=== PATIENT | male | born 1970 | race Caucasian/White ===

== ENCOUNTER → 2016-07-30 | Day surgery (SDC) | payer MEDICAID ==
[~2016-07-30] VITALS: Ht 177.8 cm; Wt 112.9 kg
[~2016-07-30] MED LIST: AEROCHAMBER1 DEV IH; ALBUTEROL2 PUFFS/17 IN; ALDACTONE 25MG25 MG PO; AMLO5TAB PO; AMOXICILLIN/CLA1 TA1 PO; AMOXIL500 MG PO; ANAPROX DS550 MG PO; ATIVAN1 MG PO; ATORVASTATIN CA40 MG PO; AZITHROMYCIN250 MG PO; BACTRIM DS 8001 TA1 PO; BACTROBAN2% TP; BENZONATATE100 M1 PO; CARVEDILOL6.25 MG PO; CEFDINIR 300MG300 MG PO; CELEXA20 MG PO; CLARITIN 10MG T10 MG PO; COMBIVENT RESPI1 SPR IH; ERYTHROCIN STE500 MG PO; FAMOTIDINE 20MG20 MG PO; FAMOTIDINE20 MG OR; FAMOTIDINE40 MG PO; FLEXERIL10 M1 PO; FLEXERIL10 MG; FLEXERIL10 MG PO; FLOMAX 0.4MG C0.4 MG PO; GABAPENTIN 400400 MG PO; GABAPENTIN300 M1 PO; HYDROCODONE1 TABLET PO; IBU-8800 MG PO; IBU800 M1 PO; IBUPROFEN400 MG PO; ISOSORBIDE MONO60 M1 PO; KEFLEX 500MG.500 MG PO; KEFLEX500 M1 PO; LIPITOR40 M1 PO; LISINOPRIL 5MG T5 MG PO; LISINOPRIL40 MG PO; LORTAB 5 PO; LORTAB 5/500 501 TAB PO; LORTAB 500 MG-71 TAB PO; MEDROL 4MG. DOSE4 MG PO; MEDROL DOSEPAK4 MG PO; MORPHINE SULFAT15 M3 PO; MOTRIN600 M1 PO; MUCINEX1200 MG PO; MYLICON 80MG. C80 MG PO; NAPROSYN 500MG500 MG PO; NITROGLYCERIN0.4 MG SL; NORCO 325 MG-101 TAB PO; NORFLEX100 MG PO; PERCOCET 325 MG1 TA3 PO; PHENERGAN 25MG.25 M1 PO; PREDNISONE 10MG10 MG PO; PREDNISONE 20MG20 MG PO; PREDNISONE 5MG.5 MG PO; PRILOSEC20 M1 PO; PROTONIX 40MG T40 MG PO; ROBAXIN-750750 MG PO; ROBITUSSIN DM 105 ML PO; SALMETEROL-F28 PUFFS IN; SEPTRA DS 800 M1 TAB PO; SINGULAIR10 MG PO; STERAPRED DS10 MG PO; SUDAFED PE COLD1 TAB PO; TESSALON PERLE100 MG PO; TESSALON PERLE200 MG PO; TIZANIDINE4 MG PO; TRAMADOL 50MG T50 MG PO; ULTRAM50 MG PO; VICODIN 5/500 T1 TAB PO; XANAX 1MG TABLET1 MG PO; ZIAC 10 MG-6.251 TAB PO; ZIAC 5 MG-6.251 TAB PO; ZITHROMAX Z PA250 MG PO; ZITHROMAX Z-PA250 M1 PO; ZITHROMAX Z-PA250 M2 PO
[2016-07-30 11:11] LABS: HEMOGLOBIN 14.6 g/dL (14.1-18.0); LYMPH # 1.4 K/mm3 (0.7-4.5); LYMPH % 19.6 % (10-50)
--- NOTE | 2016-07-30 11:22 | Emergency Room Report ---
History of Present Illness Time Seen by [id number] Presenting Problem in Triage Pt arrived:Walked Presenting Problem:CHEST PAIN 2-[address] REECE OFFICE AND IT GOT WORSE SO HE CAME TO ED. WAS SEEN LAST NIGHT FOR SAME THING. STATES THEY GAVE HIM DILAUDID LAST NIGHT. Onset of symptoms date/time:07/27/16 or onset unknown for: Treatment Prior to Arrival: RADIOLOGY RN Provided by: Sepsis Risk Assessment: Temp: 98.2 B/P: 154/76 MAP: 102 Pulse: 69 Resp: 20 Recent fever? N Clinical Suspician of Infection? N Mental Status: 1 - Regular (Normal Baseline) Sepsis Risk:Low Sepsis Risk Have you (or family members/close friends) recently traveled outside the [place]? N If Yes, where/when: Have you had exposure to infectious disease within the past month? TB? Other? Specify: Patient sent over from Dr. Aleman's office for EKG and cardiac enzymes prior to going to chemical processing laborer today. Patient seen in ED last night for three day hx of chest pain. Labs and EKG normal. Pain not relieved by nitrates, but relieved by narcotics. He states he awakened this morning with sharp, SSCP radiating to his jaw, and vomited several times, nonbloody emesis. The vomiting has abated. He took NTG with moderate relief this morning. Patient presented to Dr. Aleman's office for follow up visit this morning and EKG in Dr. Aleman's office was normal. Source patient (Irwin NOLEN with Dr. Aleman), RN notes reviewed, old records ALLERGIES Coded Allergies: tramadol (01/04/16) Home Medications Active Scripts Montelukast Sodium (Singulair) 10 MG PO QHS #30 TAB Prov: 01/04/16 Carvedilol (Carvedilol 6.25MG) 6.25 MG PO BID 30 Days Prov: 01/30/15 NITROGLYCERIN (Nitrostat) 0.4 MG SL [id number] PRN CHEST PAIN #30 TAB Ref 1 Prov: 01/30/15 ALBUTEROL/IPRATROPIUM (Combivent Respimat Inhal [place]) 1 PUFF IH Q6HP PRN ASTHMA #1 INH Ref 1 Prov: 01/30/15 Reported Medications GABAPENTIN (Gabapentin) 800 MG PO TID Isosorbide Mononitrate (Isosorbide Mononitrate ER) 30 MG PO BID #30 Atorvastatin Calcium 40 MG PO QHS #30 Spironolactone (Aldactone) 25 MG PO DAILY #30 Lisinopril (Lisinopril 40MG) 20 MG PO BID #30 History Medical History General CAD? No Angina: Yes [place]: No Hypertension? Yes Hyperlipidemia? Yes CHF? No DVT? No PE? No COPD? No Asthma? Yes Anemia? No GERD? No Gastric ulcers? No GI Bleed? No Hernia? No Thyroid Problems? No Hypothyroidism? No CVA? No Seizures? No Diabetes? No End Stage Renal Disease? No UTI? No Stones? No BPH? No GB Disease: No Nephritic Syndrome? No Asplenia? No Hepatitis? No Sickle Cell Disease? No Arthritis? Yes Migraines? No Cataracts? No Glaucoma? No MRSA? Yes HIV? No TB? No Anxiety? No Depression? No Cancer? No More? Yes Additional hx: CARDIOMYOPATHY Immunization Hx DT/Tetanus 2011 Flu Refused Pneumonia Refuses Surgical Hx Previous Surgery?Y BOTH WRIST-PIN RT LEG-SCREW/PLATE EAR TUBES BILATERALLY ADENOIDECTOMY BACK X2 LEFT KNEE R KNEE R//MRSA LEFT CARPAL TUNNEL Family History Family Hx Diabetes No CAD Yes Hypertension Yes Hyperlipidemia Yes Cancer Yes TB No Social History Smoking Hx Smoker: Never Smoker Tobacco: No Alcohol Alcohol: No Review of Systems All Other Systems Reviewed and Negative Musculoskeletal other (chronic pain; daily narcotics) Physical Exam Vital Signs Vital Signs Date Time Temp Pulse Resp B/P Pulse O2 O2 Flow FiO2 Ox Delivery Rate 07/30 1100 20 98 07/30 1050 98.2 69 20 154/76 98 General Appearance normal appearance, WD/WN, no apparent distress (Patient talking on cell phone) Eye Exam - bilateral eye normal exam, bilateral eye PERRL, bilateral eye EOMI Neck full range of motion Respiratory Status Yes: trachea midline, chest symmetrical, non tender chest. No: respiratory distress, tender on palpation, use of accessory muscles, pain on inspiration, pain on expiration, productive cough, non productive cough. Lung Sounds bilateral: normal breath sounds, lungs clear. Cardiovascular normal exam, regular rate/rhythm, no peripheral edema, no gallop, no JVD, no murmur, no rub, normal peripheral pulses Gastrointestinal normal bowel sounds, normal exam, soft, no organomegaly, no pulsatile mass, no guarding, no rebound Extremities non-tender, normal range of motion, normal inspection, normal capillary refill Neurologic alert, normal exam (speech clear and fluent) Skin intact Medical Decision Making LABS/Meds/Orders Pt receiving controlled substance in ED? No Results/Orders Laboratory Tests 07/30/16 1100: Sodium 135 L, Potassium 3.5, Chloride 99, Carbon Dioxide 30, BUN 9, Creatinine 1.1, Estimated Creat Clear 137, Estimated GFR (MDRD) 73, Glucose 106, Calcium 9.0, Total Bilirubin 0.6, AST 17, ALT 43, Alkaline Phosphatase 55, Creatine Kinase 99, CK-MB (CK-2) Rel Index 1.1, CK and CKMB Interp 1.1, Troponin I 0.02, Total Protein 7.9, Albumin 3.8, Globulin 4.1 H, Albumin/Globulin Ratio 0.9 L, WBC 7.1, RBC 4.54 L, Hgb 14.6, Hct 41.5 L, MCV 91.3, RDW 12.7, Plt Count 208, MPV 6.6 L, Gran % 74.8, Gran # 5.3, Lymphocytes % 19.6, Monocytes % 4.0, Eosinophils % 1.0, Basophils % 0.5, Lymphocytes # 1.4, Monocytes # 0.3, Eosinophils # 0.1, Basophils # 0.0, PUBS MCHC 35.3, MCH 32.3 H Current Medication Orders Sig/Jory Start time Last Medication Dose Route Stop Time Status Admin Hydromorphone HCl 1 MG ONCE ONE 07/30 1130 DCr IV 07/30 1131 Ondansetron HCl 4 MG ONCE ONE 07/30 1130 DC IV 07/30 1131 Aspirin 243 MG ONCE ONE 07/30 1115 DC 07/30 PO 07/30 1116 1111 Nitroglycerin 1 IN ONCE ONE 07/30 1115 DC 07/30 EX 07/30 1116 1111 Aspirin 0 .STK-MED ONE 07/30 1102 DC .ROUTE Nitroglycerin 0 .STK-MED ONE 07/30 1101 DC .ROUTE Sodium Chloride 10 ML PRN PRN 07/30 1100 AC IV 07/31 1051 Orders Procedure Date/time Status ELECTROCARDIOGRAM REQUEST 07/30 1051 Active IV SALINE LOCK 07/30 1051 Active INFLUENZA A&B ANTIGENS 07/30 1051 Active CBC WITH AUTO DIFF 07/30 1051 Complete CARDIAC ENZYMES 07/30 1051 Complete CHEM 12 PROFILE 07/30 1051 Complete CHEST(2 VIEWS-NOT PORTABLE) 07/30 1050 Active 12 LEAD EKG-DEMARCUS (INITIAL) 07/30 UNK Active CM/EKG CM/EKG EKG rate, NSR, rhythm, no evid. of ischemic chgs, no ectopy, normal QRS, normal KS, normal EKG (NSR, no acute changes) XRAY/CT/US XRAY/CT/US XRAY chest XR interpretation by reviewed by me Xray Results normal/NAD, no infiltrates, normal heart size, normal lung inflation dolores (no change from 07/29/16) Consult MD Physician Consult Time Called 1141 Reason Pt. Condition, Cardiology eval/care (Irwin Post updated on results) Progress ED Progress Notes Date 07/30/16 Time 1138 Comment Aspirin PO; NTP to chest wall; lab called for update on troponin result, which is still pending. Departure Departure Time of Disposition 1141 Disposition DC Home or Self Care(routine) Clinical Impression Primary Impression: Angina at rest Condition STABLE Referrals Darryn Aleman MD Additional Instructions Go directly to the chemical processing laborer. They are expecting you. The staff here has prepped you to go directly there from the ER. Although we are discharging you from the ER, you are to go immediately to the chemical processing laborer now. Discharge Counseling Counseled pt/family regarding diagnosis, test results, follow up needs ( immediately to chemical processing laborer) ED Critical Care Critical Care No at [id number]
--- NOTE | 2016-07-30 11:22 | Emergency Room Report ---
History of Present Illness Time Seen by [id number] Presenting Problem in Triage Pt arrived:Walked Presenting Problem:CHEST PAIN 2-[address] REECE OFFICE AND IT GOT WORSE SO HE CAME TO ED. WAS SEEN LAST NIGHT FOR SAME THING. STATES THEY GAVE HIM DILAUDID LAST NIGHT. 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 N Clinical Suspician of Infection? N Mental Status: 1 - Regular (Normal Baseline) Sepsis Risk:Low Sepsis Risk Have you (or family members/close friends) recently traveled outside the [place]? N If Yes, where/when: Have you had exposure to infectious disease within the past month? TB? Other? Specify: Patient sent over from Dr. Aleman's office for EKG and cardiac enzymes prior to going to clinical lab specialist today. Patient seen in ED last night for three day hx of chest pain. Labs and EKG normal. Pain not relieved by nitrates, but relieved by narcotics. He states he awakened this morning with sharp, SSCP radiating to his jaw, and vomited several times, nonbloody emesis. The vomiting has abated. He took NTG with moderate relief this morning. Patient presented to Dr. Aleman's office for follow up visit this morning and EKG in Dr. Aleman's office was normal. Source patient (Irwin NOLEN with Dr. Aleman), RN notes reviewed, old records ALLERGIES Coded Allergies: tramadol (01/04/16) Home Medications Active Scripts Montelukast Sodium (Singulair) 10 MG PO QHS #30 TAB Prov: 01/04/16 Carvedilol (Carvedilol 6.25MG) 6.25 MG PO BID 30 Days Prov: 01/30/15 NITROGLYCERIN (Nitrostat) 0.4 MG SL [id number] PRN CHEST PAIN #30 TAB Ref 1 Prov: 01/30/15 ALBUTEROL/IPRATROPIUM (Combivent Respimat Inhal [place]) 1 PUFF IH Q6HP PRN ASTHMA #1 INH Ref 1 Prov: 01/30/15 Reported Medications GABAPENTIN (Gabapentin) 800 MG PO TID Isosorbide Mononitrate (Isosorbide Mononitrate ER) 30 MG PO BID #30 Atorvastatin Calcium 40 MG PO QHS #30 Spironolactone (Aldactone) 25 MG PO DAILY #30 Lisinopril (Lisinopril 40MG) 20 MG PO BID #30 History Medical History General CAD? No Angina: Yes [place]: No Hypertension? Yes Hyperlipidemia? Yes CHF? No DVT? No PE? No COPD? No Asthma? Yes Anemia? No GERD? No Gastric ulcers? No GI Bleed? No Hernia? No Thyroid Problems? No Hypothyroidism? No CVA? No Seizures? No Diabetes? No End Stage Renal Disease? No UTI? No Stones? No BPH? No GB Disease: No Nephritic Syndrome? No Asplenia? No Hepatitis? No Sickle Cell Disease? No Arthritis? Yes Migraines? No Cataracts? No Glaucoma? No MRSA? Yes HIV? No TB? No Anxiety? No Depression? No Cancer? No More? Yes Additional hx: CARDIOMYOPATHY Immunization Hx DT/Tetanus 2011 Flu Refused Pneumonia Refuses Surgical Hx Previous Surgery?Y BOTH WRIST-PIN RT LEG-SCREW/PLATE EAR TUBES BILATERALLY ADENOIDECTOMY BACK X2 LEFT KNEE R KNEE R//MRSA LEFT CARPAL TUNNEL Family History Family Hx Diabetes No CAD Yes Hypertension Yes Hyperlipidemia Yes Cancer Yes TB No Social History Smoking Hx Smoker: Never Smoker Tobacco: No Alcohol Alcohol: No Review of Systems All Other Systems Reviewed and Negative Musculoskeletal other (chronic pain; daily narcotics) Physical Exam Vital Signs Vital Signs Date Time Temp Pulse Resp B/P Pulse O2 O2 Flow FiO2 Ox Delivery Rate 07/30 1100 20 98 07/30 1050 98.2 69 20 154/76 98 General Appearance normal appearance, WD/WN, no apparent distress (Patient talking on cell phone) Eye Exam - bilateral eye normal exam, bilateral eye PERRL, bilateral eye EOMI Neck full range of motion Respiratory Status Yes: trachea midline, chest symmetrical, non tender chest. No: respiratory distress, tender on palpation, use of accessory muscles, pain on inspiration, pain on expiration, productive cough, non productive cough. Lung Sounds bilateral: normal breath sounds, lungs clear. Cardiovascular normal exam, regular rate/rhythm, no peripheral edema, no gallop, no JVD, no murmur, no rub, normal peripheral pulses Gastrointestinal normal bowel sounds, normal exam, soft, no organomegaly, no pulsatile mass, no guarding, no rebound Extremities non-tender, normal range of motion, normal inspection, normal capillary refill Neurologic alert, normal exam (speech clear and fluent) Skin intact Medical Decision Making LABS/Meds/Orders Pt receiving controlled substance in ED? No Results/Orders Laboratory Tests 07/30/16 1100: Sodium 135 L, Potassium 3.5, Chloride 99, Carbon Dioxide 30, BUN 9, Creatinine 1.1, Estimated Creat Clear 137, Estimated GFR (MDRD) 73, Glucose 106, Calcium 9.0, Total Bilirubin 0.6, AST 17, ALT 43, Alkaline Phosphatase 55, Creatine Kinase 99, CK-MB (CK-2) Rel Index 1.1, CK and CKMB Interp 1.1, Troponin I 0.02, Total Protein 7.9, Albumin 3.8, Globulin 4.1 H, Albumin/Globulin Ratio 0.9 L, WBC 7.1, RBC 4.54 L, Hgb 14.6, Hct 41.5 L, MCV 91.3, RDW 12.7, Plt Count 208, MPV 6.6 L, Gran % 74.8, Gran # 5.3, Lymphocytes % 19.6, Monocytes % 4.0, Eosinophils % 1.0, Basophils % 0.5, Lymphocytes # 1.4, Monocytes # 0.3, Eosinophils # 0.1, Basophils # 0.0, PUBS MCHC 35.3, MCH 32.3 H Current Medication Orders Sig/Jory Start time Last Medication Dose Route Stop Time Status Admin Hydromorphone HCl 1 MG ONCE ONE 07/30 1130 DCr IV 07/30 1131 Ondansetron HCl 4 MG ONCE ONE 07/30 1130 DC IV 07/30 1131 Aspirin 243 MG ONCE ONE 07/30 1115 DC 07/30 PO 07/30 1116 1111 Nitroglycerin 1 IN ONCE ONE 07/30 1115 DC 07/30 EX 07/30 1116 1111 Aspirin 0 .STK-MED ONE 07/30 1102 DC .ROUTE Nitroglycerin 0 .STK-MED ONE 07/30 1101 DC .ROUTE Sodium Chloride 10 ML PRN PRN 07/30 1100 AC IV 07/31 1051 Orders Procedure Date/time Status ELECTROCARDIOGRAM REQUEST 07/30 1051 Active IV SALINE LOCK 07/30 1051 Active INFLUENZA A&B ANTIGENS 07/30 1051 Active CBC WITH AUTO DIFF 07/30 1051 Complete CARDIAC ENZYMES 07/30 1051 Complete CHEM 12 PROFILE 07/30 1051 Complete CHEST(2 VIEWS-NOT PORTABLE) 07/30 1050 Active 12 LEAD EKG-DEMARCUS (INITIAL) 07/30 UNK Active CM/EKG CM/EKG EKG rate, NSR, rhythm, no evid. of ischemic chgs, no ectopy, normal QRS, normal MD, normal EKG (NSR, no acute changes) XRAY/CT/US XRAY/CT/US XRAY chest XR interpretation by reviewed by me Xray Results normal/NAD, no infiltrates, normal heart size, normal lung inflation dolores (no change from 07/29/16) Consult MD Physician Consult Time Called 1141 Reason Pt. Condition, Cardiology eval/care (Irwin Post updated on results) Progress ED Progress Notes Date 07/30/16 Time 1138 Comment Aspirin PO; NTP to chest wall; lab called for update on troponin result, which is still pending. Departure Departure Time of Disposition 1141 Disposition DC Home or Self Care(routine) Clinical Impression Primary Impression: Angina at rest Condition STABLE Referrals Darryn Aleman MD Additional Instructions Go directly to the clinical lab specialist. They are expecting you. The staff here has prepped you to go directly there from the ER. Although we are discharging you from the ER, you are to go immediately to the clinical lab specialist now. Discharge Counseling Counseled pt/family regarding diagnosis, test results, follow up needs ( immediately to clinical lab specialist) ED Critical Care Critical Care No at [id number]
--- NOTE | 2016-07-30 13:52 | RADIOLOGY REPORT PS360 ---
CHEST(2 VIEWS-NOT PORTABLE) HISTORY: chest pain ORDERING PHYSICIAN: Suzie Dick MD PATIENT AGE: 45 years FINDINGS: The cardiomediastinal silhouette and pulmonary vascularity are within normal limits. The lungs are clear without infiltrates, suspicious nodules, or pleural effusions. No acute bony abnormalities. A loop recorder device is once again noted. Lungs remain clear IMPRESSION: No change with no acute finding from 07/29/2016
--- NOTE | 2016-07-30 13:59 | RADIOLOGY REPORT PS360 ---
CARDIAC CATHETERIZATION DATE OF CATHETERIZATION:07/30/2016 12:20 PM PROCEDURES: 1. Left heart catheterization 2. Left ventriculogram 3. Selective coronary angiogram INDICATION FOR TEST: 1. Unstable angina 2. Coronary artery disease 3. Recurrent visits to the emergency department with chest pain Informed consent was obtained prior to the procedure. COMPLICATIONS: None ESTIMATED BLOOD LOSS: Less than 10 ml. TECHNIQUE: One percent lidocaine was used to anesthetize the right groin. The right femoral artery was accessed via the Seldinger technique. A 4-[place] sheath was placed in the right femoral artery. The JL-4 and JR-4 catheter was also used to perform left heart catheterization and left ventriculography. At the end of the procedure the patient was transferred to the post-op holding area in stable condition for arterial sheath removal. ANGIOGRAPHIC RESULTS: 1. The left main artery normal 2. The left anterior descending artery has mild proximal tendon 20% stenosis with a mid vessel myocardial bridge causing 30-40% stenosis with systole 3. The circumflex artery is a large dominant vessel with mild luminal irregularities 4. The right coronary artery is a vestigial vessel and normal 5. The [place] ventriculogram reveals hyperdynamic ventricle at 75% 6. The left ventricular end-diastolic pressure 15 mmHg IMPRESSION: 1. Mild coronary artery disease all of which is nonflow limiting 2. 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 Hyperdynamic ventricle consistent with hypertensive heart disease 4. Mildly elevated LVEDP PLAN: 1. High dose beta blockers 2. Addition of verapamil or diltiazem 3. Control of hypertension 4. Treatment of endothelial dysfunction with antianginal medications combined with risk factor modification
[2016-07-30 16:32] VITALS: BP 164/95
== END ==
LOC: ER 10:42 → CATHLAB 12:01
PROVIDERS: Emergency Medicine; Internal Medicine
PROC: B2111ZZ Fluoroscopy of Multiple Coronary Arteries using Low Osmolar Contrast (ICD-10-PCS; 2016-07-30)
PROC: B2151ZZ Fluoroscopy of Left Heart using Low Osmolar Contrast (ICD-10-PCS; 2016-07-30)
PROC: 4A023N7 Measurement of Cardiac Sampling and Pressure, Left Heart, Percutaneous Approach (ICD-10-PCS; principal; 2016-07-30 14:45)
DX: I25.119 Atherosclerotic heart disease of native coronary artery with unspecified angina pectoris (principal); R07.9 Chest pain, unspecified
CPT/HCPCS: C1725; C1769; J1644; J2405; Q9967

== ENCOUNTER 2017-02-22 18:10 | Emergency (ER) | payer MEDICAID ==
[~2017-02-22] VITALS: Ht 177.8 cm; Wt 111.1 kg
--- NOTE | 2017-02-22 19:02 | Urgent Treatment Center Report ---
History of Present Issue Date/Time Seen by Provider 02/22/17 1902 Visit Reason Pt arrived:Walked Presenting Problem:MID/LOW BACK PAIN BEGAN WEDNESDAY AFTER WORKING ON VEHICLE, HX BACK PROBLEMS Location if Accident: Onset of symptoms date/time:/ or onset unknown for:MEDICAL HX UNKNOWN Have you (or family members/close friends) recently traveled outside the [place]? N If Yes, where/when: Have you had exposure to infectious disease within the past month? TB? Other? Specify: c/o left sided low back pain since Wednesday. Just now was able to get a ride to get here from [facility]. Hx of low back pain. Poor historian. reports disc injuries requiring surgeries. Pins and rods "somewhere". Was laying under truck working on gas tank. Lifted gas tank up when he felt a pop mid back, "more to left". Since then, N/T left buttock, radiating in posterior left thigh. Denies any N/T of genitals. No incontinence or difficulty w/ bowel/bladder. Ibuprofen hasn't helped. last took this moring. Source patient Exam Limitations clinical condition (pain) ALLERGIES Coded Allergies: tramadol (01/04/16) Home Medications Active Scripts Carvedilol (Carvedilol 6.25MG) 6.25 MG PO BID 30 Days Prov: 01/30/15 Reported Medications Lisinopril (Lisinopril 40MG) 20 MG PO BID #30 Bupropion HCl (Bupropion HCl Sr 150mg) 75 MG PO BID TRAZODONE HCL (Trazodone HCl) 50 MG PO QHS History Medical History General CAD? No Angina: No [place]: No Hypertension? Yes Hyperlipidemia? Yes CHF? No DVT? No PE? No COPD? No Asthma? No Anemia? No GERD? Yes Gastric ulcers? No GI Bleed? No Hernia? No Thyroid Problems? No Hypothyroidism? No CVA? No Seizures? No Diabetes? No Renal Insuffiency? No UTI? No Stones? No BPH? No GB Disease: No Nephritic Syndrome? No Asplenia? No Hepatitis? No Sickle Cell Disease? No Arthritis? No Migraines? No Cataracts? No Glaucoma? No MRSA? No HIV? No TB? No Anxiety? Yes Depression? No Cancer? No More? No Additional hx: CARDIOMYOPATHY Immunization HX DT/Tetanus 2011 Flu Refused Pneumonia Refuses Surgical Hx Previous Surgery?Y LOW BACK 2005 LUMBAR FUSION 2014 BROKEN WRIST/ARM 1989 ADENOIDECTOMY BACK X2 LEFT KNEE R KNEE R//MRSA LEFT CARPAL TUNNEL Family History Family HX Diabetes No CAD Yes Hypertension Yes Hyperlipidemia Yes Cancer Yes TB No Social History Smoking Hx Smoker: Never Smoker Tobacco: No Alcohol Alcohol: No Review of Systems All Other Systems Reviewed and Negative Constitutional denies fever, denies malaise Musculoskeletal see HPI, denies joint pain, denies joint swelling Skin denies change in color, denies lesions, denies lumps Psychiatric/Neurological see HPI Physical Exam Vital Signs Vital Signs Date Time Temp Pulse Resp B/P Pulse O2 O2 Flow FiO2 Ox Delivery Rate 02/22 2051 97.9 96 18 149/103 100 02/22 1856 97.9 96 18 149/103 100 02/22 1815 97.9 96 18 149/103 100 General Appearance mild distress, seated in exam room chair, leaning right Respiratory Status No: respiratory distress. Cardiovascular no peripheral edema Peripheral Pulses Pulses normal Yes (DP/PT) Back bowel/bladder continent, strt leg raising(L)-ABNL (20-30 degress), strt leg raising(R)-NML, vertebral tenderness (entire lumbar/sacral), tenderness throughout entire left lumbar/sacral region w/ severe tenderness left SI , muscle tightness/knot lower thoracic/upper lumbar region, left side, close proximity to spine; tender, limited spinal ROM Extremities non-tender (right LE), limited range of motion (left LE d/t increasing pain), tenderness left posterior thigh Strength 5 Lower Ext (L), 5 Lower Ext (R) Neurologic alert, no motor/sensory deficits, oriented x 3 Reflexes Reflexes normal Yes (patellar) Skin normal color, warm/dry Medical Decision Making LABS/Meds/Orders Pt receiving controlled substance in ED? No Results/Orders Current Medication Orders Sig/Jory Start time Last Medication Dose Route Stop Time Status Admin Ketorolac 0 .STK-MED ONE 02/22 2003 DC Tromethamine .ROUTE Orphenadrine Citrate 0 .STK-MED ONE 02/22 2003 DC .ROUTE Ketorolac 60 MG ONCE ONE 02/22 1945 DC 02/22 Tromethamine IM 02/22 Orphenadrine Citrate 60 MG ONCE ONE 02/22 1945 DC 02/22 IM 02/22 XRAY/CT/US XRAY/CT/US XRAY L-spine XR interpretation by reviewed by me (rvwd w. Dr. Jameson, [facility] T[facility]NER) Xray Results no acute changes Progress [facility] Progress Notes Date 02/22/17 Comment pain improved w/ injection. Pt immediately asking to be discharged after injections. "my back is already looser" pt reports as he stands and moves around. Departure Departure Time of Disposition 2040 Disposition DC Home or Self Care(routine) Clinical Impression Primary Impression: Low back strain Qualifiers: Encounter type: initial encounter Qualified Code: S39.012A - Strain of muscle, fascia and tendon of lower back, initial encounter Secondary Impressions: Muscle spasm Condition STABLE Referrals Gisell TURNER,Thomas De León (Family) Immediately for new or worsening symptoms or no noticeable improvement in 48 hours. Patient Instructions DI for Low Back Pain, DI for Muscle Spasm Additional Instructions * naproxen every 12 hours with meal as needed for pain/inflammation. * Remember you had a toradol shot, similiar anti-inflammatory. No naproxen until morning. * No additional anti-inflammatories like motrin, aleve, advil with the above amount of naproxen. You CAN still take Tylenol every 4 hours as needed if you need something more for pain. * Ice x15-20 mins 3-4 times a day for first 48 hours after the initial injury followed by moist heat x15-20 mins 3-4 times a day to affected area * Muscle relaxer every 8 hours as needed for muscle spasms but remember, it WILL cause drowsiness. You can NOT take it and drive, operate machinary or care for small children * Remember you had noraflex, a muscle relaxer, in clinic. Next dose not until morning. * Keep this area active. No movement leads to more stiffness. However, take it easy too and avoid heavy lifting, pushing, pulling. Discharge Counseling Counseled pt/family regarding diagnosis, test results, medications/RX, home care, follow up needs Prescriptions Current Visit Scripts NAPROXEN (NAPROSYN 500MG TAB) 500 MG PO BID #20 TAB Cyclobenzaprine Hcl (Flexeril) 5 MG PO TIDP PRN muscle spasm #6 TAB will cause drowsiness at [id number]
[2017-02-22 20:51] VITALS: BP 149/103
--- NOTE | 2017-02-22 23:17 | RADIOLOGY REPORT PS360 ---
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 No fracture or dislocation. No lytic or blastic change. IMPRESSION: Postsurgical changes with fusion at L5-S1 and degenerative disc disease at that level. No acute finding
--- OUTSIDE RECORDS SUMMARY | 2017-03-17 07:31 | External Medical Summary Rpt ---
Author Author , KEENAN HUSSEIN Address Unknown Phone [email or web address] Care Team Providers Care Paving Rammer Name Role Phone ALPHONSE MAXIMO, Unavailable Unavailable ALPHONSE MAXIMO ALPHONSE MAXIMO, Unavailable Unavailable ALPHONSE MAXIMO [facility] Unavailable Unavailable [facility], [facility] GIORGIO HENSON ALVARES Unavailable Unavailable NATIVIDAD GIORGIO URIAS Unavailable Unavailable NATIVIDAD HERNANDEZ MD Unavailable Unavailable PSC, GIORGIO HERNANDEZ MD [facility] GIORGIO HERNANDEZ, Unavailable Unavailable ,PSC, GIORGIO HERNANDEZ MD,PSC [facility] Unavailable Unavailable [facility] GROUP, [facility] EASTMAN ANDERSEN, EASTMAN Unavailable Unavailable ANDERSEN BEINEKE, BEINEKE Unavailable Unavailable BESSON MIRIAM, BESSON Unavailable Unavailable MIRIAM [facility] Unavailable Unavailable [facility], [facility] ABRAMS ALL, ABRAMS ALL Unavailable Unavailable [facility] Unavailable Unavailable [facility], [facility], [facility] CRAGER JAM, CRAGER Unavailable Unavailable JAM SALLIE ANDERSEN, Unavailable Unavailable SALLIE ANDERSEN YOVANI JR DEB, YOVANI Unavailable Unavailable JR DEB YOVANI JR DEB, YOVANI Unavailable Unavailable JR DEB MARTHA BRENTON, Unavailable Unavailable MARTHA BRENTON MARTHA BRENTON, Unavailable Unavailable MARTHA BRENTON [facility] [facility] GUNNER KETAN, GUNNER Unavailable Unavailable K[facility], [facility] FAUGHN ANDERSEN, FAUGHN Unavailable Unavailable ANDERSEN POLO, POLO Unavailable Unavailable POLO, POLO Unavailable Unavailable POLO HUMBERTO, Unavailable Unavailable POLO HUMBERTO FRYMAN EUG, FRYMAN Unavailable Unavailable EUG JR POLLY ANDRADE, Unavailable Unavailable JR POLLY ANDRADE NELDA KETAN, NELDA Unavailable Unavailable KETAN NELDA KETAN, NELDA Unavailable Unavailable KETAN GANZEL, GANZEL Unavailable Unavailable GANZEL MIRIAM, GANZEL Unavailable Unavailable MIRIAM [facility] Unavailable Unavailable [facility], [facility] Unavailable Unavailable INC, [facility] Unavailable Unavailable HOSPITAL, [facility] Unavailable Unavailable HOSPITAL P, [facility] P [facility], Unavailable Unavailable [facility] BEE, BEE Unavailable Unavailable CINTRON, CINTRON Unavailable Unavailable CINTRON TRA, CINTRON TRA Unavailable Unavailable Jordi Dallas MD, Unavailable Unavailable Jordi Dallas MD [facility] Unavailable Unavailable [facility], [facility] ED LIS, ED LIS Unavailable Un[facility] PEMBERTON, PEMBERTON Unavailable Unavailable [place] ANDERSEN, PEMBERTON Unavailable Unavailable ANDERSEN SAGAR JR DWI, SAGAR Unavailable Unavailable JR DWI [facility] JEREMÍAS HAM, JEREMÍAS HAM Unavailable Unavailable JEREMÍAS HAM, JEREMÍAS HAM Unavailable Unavailable PROSPER EMMY, PROSPER Unavailable Unavailable EMMY CASSIA ALFARO, Unavailable Unavailable [facility], Unavailable [facility]available [facility], [facility] PAVEZ MAR, PAVEZ MAR Unavailable Unavailable ROGERS, III RADHA, Unavailable Unavailable ROGERS, III RADHA [facility], Unavailable Unavailable [facility], Unavailable Unavailable [facility] KATHY MIRIAM, KATHY MIRIAM Unavailable Unavailable JOSE CANDICE, JOSE Unavailable Unavailable CANDICE [facility] Unavailable Unavailable [id number] [address] [id number], [facility] [id number] # [id number] GARCIA MARTHA, GARCIA Unavailable Unavailable MARTHA SCALF CANDICE, SCALF CANDICE Unavailable Unavailable JOSE MAT, Unavailable Unavailable JOSE MAT JACKSON BENNETT, JACKSON BENNETT Unavailable Unavailable [facility] Unavailable Unavailable [facility], [facility] Unavailable Unavailable [facility], [facility] SOTINGEANU VAMSHI, Unavailable Unavailable SOT[facility]U VAM[facility] SABINO, Unavailable Unavailable [facility], Unavailable Unavailable [facility] Un[facility], [facility] Unavailable Unavailable [facility]ENTER, [facility] Jayesh Hernandez MD, Unavailable Unavailable Jayesh Hernandez MD [facility] # Unavailable Unavailable [id number], [facility] # [id number] WALKER FOR, WALKER Unavailable Unavailable FOR SANCHEZ MINO, SANCHEZ MINO Unavailable Unavailable COURTNEY CAMPOS Unavailable Unavailable DAVID PETDAVID Unavailable Unavailable PET YEISER, YEISER Unavailable Unavailable Purpose Continuity of Care Document - 10-31-2010 through 2016 Problems Code Diagnosis DOS Provider Status 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 DEONNA RODRIGUEZ MD,[facility] DEGEN LUMBAR REGION M5416 RADICULOPAT 11-16-2016 GIORGIO HY LUMBAR ORALIA HERNANDEZ MD,[facility] [id number] MCC 11-16-2016 GIORGIO CURRENT USE MAXWELL HERNANDEZ OPIATE ,[facility] ANALGESIC X38249 TENSION-TYP 09-03-2016 MELANI E HEADACHE UNSPECIFIED INTRACTABLE M542 CERVICALGIA 09-03-2016 POLO M9901 SEGMENTAL & 09-03-2016 [facility] SOMATIC DYSFUNCTION CERVICAL REGION M9902 SEGMENTAL & 09-03-2016 [facility] SOMATIC DYSFUNCTION THORACIC REGION G4733 OBSTRUCTIVE 08-19-2016 [facility] E[facility]ME E785 HYPERLIPIDE 08-14-2016 [facility] UNSPECIFIED INC I10 ESSENTIAL 08-14-2016 [facility] HYPERTENSIO INC N I119 HYPERTENSIV 07-30-2016 [facility], DISEASE PLLC WITHOUT HEART FAILURE I209 ANGINA 07-30-2016 [facility] PECTORIS PHYSICIANS, UNSPECIFIED [facility] [id number] ASHD TULUKSAK 07-30-2016 [facility] P ANGINA PECTORIS R079 CHEST PAIN 07-30-2016 [facility] R0789 OTHER CHEST 07-29-2016 [facility] PAIN PHYSICIANS, [facility] I2510 ASHTalia TULUKSAK 07-16-2016 [facility] CORONARY PHYSICIANS ARTERY W/O GROUP ANGINA PECTORIS 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 R55 SYNCOPE AND 05-07-2016 [facility] COLLAPSE PHYSICIANS GROUP E669 OBESITY 04-28-2016 [facility] UNSPECIFIED PHYSICIANS GROUP E876 HYPOKALEMIA 04-28-2016 [facility] PH[facility]IANS, [facility] I708 ATHEROSCLER 04-28-2016 [facility] OSIS OF PHYSICIANS OTHER GROUP ARTERIES N182 CHRONIC 04-28-2016 [facility] KIDNEY PHYSICIANS DISEASE GROUP STAGE 2 MILD R0602 SHORTNESS 04-28-2016 [facility] OF BREATH PHYSICIANS GROUP J029 ACUTE 03-26-2016 [facility] PHARYNGITIS PHYSICIANS GROUP UNSPECIFIED R109 UNSPECIFIED 03-26-2016 [facility] ABDOMINAL PHYSICIANS PAIN GROUP R112 NAUSEA WITH 03-26-2016 [facility] VOMITING PHYSICIANS UNSPECIFIED GROUP M545 LOW BACK 01-30-2016 [facility] M4806 SPINAL 01-20-2016 GIORGIO STENOSIS DAVID LUMBAR ,[facility] REGION J4551 SEVERE 01-04-2016 [facility] PERSISTENT PHYSICIANS, ASTHMA WITH PLLC ACUTE EXACERBATIO N R05 COUGH 01-04-2016 [facility] R42 DIZZINESS 12-31-2015 [facility] Z6835 BODY MASS 12-31-2015 [facility] INDEX BMI HEALTH 35.0-35.9 MEDICAL ADULT GROUP J40 BRONCHITIS 12-28-2015 [facility] NOT PHYSICIANS SPECIFIED GROUP ACUTE OR CHRONIC R0600 DYSPNEA 11-26-2015 [facility] UNSPECIFIED [facility] INC N179 ACUTE 11-11-2015 [facility] UNSPECIFIED I1310 HTN HEART & 10-15-2015 [facility] CKD W/O HF PHYSICIANS W/STAGE GROUP 1-4 CKD/UNS CKD C64332 ASHD TULUKSAK 10-15-2015 [facility] COR ART PHYSICIANS W/OTH FORMS GROUP ANGINA PECTORIS N183 CHRONIC 10-15-2015 [facility] KIDNEY PHYSICIANS DISEASE GROUP STAGE 3 MODERATE R609 EDEMA 10-15-2015 [facility] UNSPECIFIED PHYSICIANS GROUP N19 UNSPECIFIED 10-13-2015 [facility]IDNEY [facility] FAILURE INC Z0389 ENCOUNTER 10-03-2015 [facility] OBSERV OT MEDICAL SUSPCT DZ & IMAGING ASS COND RULED OUT I208 OTHER FORMS 10-01-2015 [facility] OF ANGINA PHYSICIANS PECTORIS GROUP T34435 SPONDYLOSIS 09-16-2015 GI[facility]IO W/O DAVID MYELOPATH/R ,[facility] ADICULOPATH Y LUMB RGN I361 NONRHEUMATI 09-02-2015 [facility] TRICUSPID SERV VALVE FOUNDATION INSUFFICIEN CY M519 UNS THOR 08-20-2015 [facility] THORACOLUMB MEM HOSP AR INC LUMBOSACRAL IV DISC D/O J069 ACUTE UPPER 08-11-2015 [facility] PH[facility]ICIANS, RESPIRATORY PLLC INFECTION UNSPECIFIED E11546 PAIN IN 08-11-2015 [facility] LEFT HIP [facility]ICAL [facility] W41703 OTHER LONG 08-11-2015 [facility] TERM PHYSICIANS CURRENT GROUP DRUG THERAPY I425 OTHER 06-24-2015 [facility] CARDIOMYOPA THY J209 ACUTE 06-18-2015 [facility] BRONCHITIS PHYSICIANS UNSPECIFIED GROUP R0609 OTHER FORMS 04-23-2015 [facility] OF DYSPNEA MEM HOSP INC I422 OTHER 04-02-2015 [facility] HYPERTROPHI MEM HOSP C INC CARDIOMYOPA THY 73439 OBSTRUCTIVE 02-28-2015 [facility] E[facility] 2724 OTHER AND 02-26-2015 [facility] UNSPECIFIED MEM HOS[facility] INC HYPERLIPIDE CLEVE 4019 UNSPECIFIED 02-26-2015 [facility] ESSENTIAL MEM HOSP HYPERTENSIO INC N 32597 UNSPEC HTN 02-26-2015 [facility] DISEASE [facility] WITHOUT O HEART FAIL 4254 OTHER 02-26-2015 [facility] CARDIOMYOPA INC KATARINA 47415 OTHER 02-26-2015 [facility] DYSPNEA AND LAR CONSULTANTS RESPIRATORY O ABNORMALITI ES 4660 ACUTE 02-15-2015 [facility] 21458 STIFFNESS 02-12-2015 [place] OF [facility]INT CHIROPRACTI NEC C CENTE SHOULDER REGION 7234 BRACHIAL 02-12-2015 [place] NEURITIS OR CHIROPRACTI C CENTE RADICULITIS NOS 7282 MUSCULAR 02-12-2015 [place] WASTING AND CHIROPRACTI DISUSE C CENTE ATROPHY NEC 7283 OTHER 02-12-2015 [place] SPECIFIC CHIROPRACTI MUSCLE C CENTE DISORDERS 7393 NONALLOPATH 02-12-2015 [place] IC LESION CHIROPRACTI OF LUMBAR C CENTE REGION NEC 03296 NONSPECIFIC 02-12-2015 [facility] ABNORMAL [facility] ELECTROCARD INC IOGRAM 04945 UNSPECIFIED 02-06-2015 [facility] APNEA INC 28612 COR 01-30-2015 [facility] ATHEROSLERO LAR UNSPEC CONSULTANTS TYPE VESSEL O TULUKSAK/WILBERT T 83772 CHEST PAIN 01-30-2015 [facility] UNSPECIFIED LAR CONSULT[facility]S O 88713 OBESITY, 01-29-2015 [facility] UNSPECIFIED LAR CONSULTANTS O 4111 INTERMEDIAT 01-29-2015 [facility] E CORONARY LAR SYNDROME CONSULTANTS O 4011 ESSENTIAL 01-28-2015 [facility] HYPERTENSIO PHYSICIANS N, BENIGN GROUP 85486 CORONARY 01-28-2015 [facility] P CORONARY ARTERY V5869 LONG-TERM 01-28-2015 [facility] (CURRENT) PHYSICIANS USE OF GROUP OTHER MEDICATIONS 49062 DEGEN 01-10-2015 [facility] [place] LUMBAR/LUMB [facility]THOP[facility]EDIC OSACRAL S PLC INTERVERTEB RAL DISC 4619 ACUTE 11-27-2014 [place] SINUSITIS, [facility] UNSPECIFIED HOSPITAL 3384 CHRONIC 10-16-2014 [facility] SYNDROME 01621 ASTHMA, 10-16-2014 [facility] UNSPECUAB [facility] , UNSPECIFIED STATUS 37419 UNSPECIFIED 10-16-2014 [facility] ARTHROPATHY SITE UNSPECIFIED 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 66105 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 S PLC LUMBAR REGION 68858 SPINAL STEN 10-16-2014 [facility] LUMB REG ORTHOPAEDIC W/O S PLC NEUROGENIC CLAUDICATIO N 7245 UNSPECIFIED 10-16-2014 [facility] PSC 7295 PAIN IN 10-16-2014 [facility] TISSUES OF [facility] LIMB V1204 PERSONAL HX 10-16-2014 [facility] RESIST STAPH AUREUS V7283 OTHER 10-09-2014 [facility] SPECIFIED COMMUNTIY PRE-OPERATI HOSPITA VE EXAMINATION V7286 ENCOUNTER 10-09-2014 [facility] FOR BLOOD COMMUNTIY TYPING HOSPITA 7242 LUMBAGO 10-02-2014 [facility] ORTHOPAEDIC S PLC 27837 ASTHMA 10-01-2014 [facility] UNSPECIFIED MEDICAL WITH IMAGING ASS EXACERBATIO N 67742 FEVER 10-01-2014 [facility] UNSPECIFIED [facility]ICAL IMAGING ASS V8281 SPECIAL 09-20-2014 [facility] SCREENING FOR OSTEOPOROSI S 7244 THORACIC/RON 08-22-[address] MBOSACRAL SURGERY NEURITIS/RA CENTER DICULITIS UNSPEC 4611 ACUTE 06-19-2014 [facility] FRONTAL PHYSICIANS SINUSITIS GROUP 52828 CLOS 04-19-2014 [facility] FRACTURE MEDICAL MID/PROXIMA IMAGING ASS L PHALANX/PHA LANG HAND 61630 OPEN 04-19-2014 [facility] FRACTURE N EMERGENCY MID/PROXIMA PHYS L PHALANX/PHA LANG HAND 8830 OPEN WOUND 04-19-2014 [facility] FINGER N EMERGENCY WITHOUT PHYS MENTION COMPLICATIO N E918 CAUGHT 04-19-2014 [facility] ACCIDENTALL N EMERGENCY Y IN OR PHYS BETWEEN OBJECTS 28687 HYPERTROPHY 04-12-2014 [place] PROSTATE [facility] W/O UR [facility] P & OTH LUTS 6011 CHRONIC 04-12-2014 [place] PROSTATITIS [facility] P 22098 SLOWING OF 04-12-2014 [place] URINARY [facility] P 490 BRONCHITIS 04-05-2014 [facility] NOT PHYSICIANS SPECIFIED GROUP ACUTE OR CHRONIC 5990 URINARY 03-08-2014 [facility] TRACT [facility] INFECTION INC SITE NOT SPECIFIED 7213 LUMBOSACRAL 11-07-2013 [facility] J[facility] SPONDYLOSIS WITHOUT MYELOPATHY 46686 EFFUSION OF 10-31-2013 [facility] HAND JOINT [place] 31315 PAIN IN 10-31-2013 [facility] JOINT, HAND [place] 41962 SPRAIN AND 10-31-2013 [facility] STRAIN OF MEM HOSP UNSPECIFIED INC SITE OF HAND E9288 OTHER 10-31-2013 [facility] ACCIDENT 9182 SUPERFICIAL 10-23-2013 [facility] INJURY OF PHYSICIANS CONJUNCTIVA GROUP 8471 THORACIC 09-29-2013 [facility] SPRAIN AND MAXIMO STRAIN 78810 HYPERPLASIA 09-07-2013 YOV[facility] MORTENSEN PROSTATE DEB UNS W/O UR OBST & OTH LUTS 6010 ACUTE 09-04-2013 [facility] KETAN PROSTATITIS 6019 UNSPECIFIED 08-10-2013 [facility] PROSTATITIS INC 5641 IRRITABLE 06-26-2013 [facility] SYNDROME INC 7908 UNSPECIFIED 06-26-2013 [facility] VIREMIA [facility] INC V148 PERSONAL 06-14-2013 [facility] HISTORY [facility] ALLERGY OTH INC SPEC MEDICINAL AGTS 5206 DISTURBANCE 01-15-2011 [facility] & S IN TOOTH ROGERS, ERUPTION PLLC 79868 OTHER 01-08-2011 [facility] [id number] [facility] Allergies, Adverse Reactions, Alerts Type Drug Allergy Adverse Reaction to Substance Substance Reaction Severity Tramadol Unknown Unknown Medications Na ND Rx Da Fi Fi Am Da Di Ph RX Ph St me C No te ll ll ou ys ag ar # ys at rm s nt no ma ic us Or Da si cy ia de te s n re d GA 68 08 09 90 30 00 HO Ac BA 00 -3 -2 .0 00 ME ti PE 10 0- 9- 00 04 TO ve NT 00 20 20 02 WN IN 70 17 17 43 3 74 PH 80 AR 0 MA MG CY TA OF BL ET CY NT HI AN A LI 68 08 09 30 15 00 HO Ac SI 18 -2 -2 .0 00 ME ti NO 00 1- 2- 00 06 TO ve MS 51 20 20 07 WN IL 70 17 17 34 3 87 PH 40 AR MA MG CY TA OF BL ET CY NT HI AN A BU 68 08 09 60 30 00 HO Ac MS 00 -2 -2 .0 00 ME ti OP 10 1- 2- 00 06 TO ve IO 30 20 20 08 WN N 80 17 17 68 HC 0 62 PH L AR 75 MA CY MG OF TA BL CY ET NT HI AN A TR 50 08 09 30 30 00 HO Ac AZ 11 -2 -2 .0 00 ME ti OD 10 1- 2- 00 06 TO ve ON 43 20 20 08 WN E 30 17 17 68 50 2 63 PH AR MG MA CY TA BL OF ET CY NT HI AN A CA 68 08 09 60 30 00 HO Ac RV 00 -2 -2 .0 00 ME ti ED 10 1- 2- 00 06 TO ve IL 15 20 20 08 WN OL 40 17 17 68 3 64 PH 6. AR 25 MA CY MG OF TA BL CY ET NT HI AN A GA 68 07 08 90 30 00 HO Ac BA 00 -2 -2 .0 00 ME ti PE 10 1- 5- 00 04 TO ve NT 00 20 20 02 WN IN 70 17 17 38 3 32 PH 80 AR 0 MA MG CY TA OF BL ET CY NT HI AN A BU 68 07 08 60 30 00 HO Ac MS 00 -0 -1 .0 00 ME ti OP 10 6- 1- 00 06 TO ve IO 30 20 20 08 WN N 80 17 17 68 HC 0 62 PH L AR 75 MA CY MG OF TA BL CY ET NT HI AN A GA 68 07 08 21 7 00 HO Ac BA 00 -1 -1 .0 00 ME ti PE 10 1- 1- 00 04 TO ve NT 00 20 20 02 WN IN 70 17 17 36 3 22 PH 80 AR 0 MA MG CY TA OF BL ET CY NT HI AN A LI 68 07 08 30 15 00 HO Ac SI 00 -0 -1 .0 00 ME ti NO 10 6- 1- 00 06 TO ve MS 27 20 20 07 WN IL 10 17 17 34 8 87 PH 40 AR MA MG CY TA OF BL ET CY NT HI AN A CA 68 07 08 60 30 00 HO Ac RV 00 -0 -1 .0 00 ME ti ED 10 6- 1- 00 06 TO ve IL 15 20 20 08 WN OL 40 17 17 68 3 64 PH 6. AR 25 MA CY MG OF TA BL CY ET NT HI AN A TR 50 07 08 30 30 00 HO Ac AZ 11 -0 -1 .0 00 ME ti OD 10 6- 1- 00 06 TO ve ON 43 20 20 08 WN E 30 17 17 68 50 2 63 PH AR MG MA CY TA BL OF ET CY NT HI AN A GA 68 05 06 90 30 00 HO Ac BA 00 -3 -3 .0 00 ME ti PE 10 0- 0- 00 06 TO ve NT 00 20 20 07 WN IN 70 17 17 74 3 18 PH 80 AR 0 MA MG CY TA OF BL ET CY NT HI AN A TI 55 05 06 90 30 00 HO Ac ZA 11 -3 -3 .0 00 ME ti NI 10 0- 0- 00 06 TO ve DI 17 20 20 07 WN NE 91 17 17 74 5 15 PH HC AR L MA 2 CY MG OF TA BL CY ET NT HI AN A BU 68 05 06 60 30 00 HO Ac MS 00 -1 -1 .0 00 ME ti OP 10 2- 6- 00 06 TO ve IO 30 20 20 08 WN N 80 17 17 68 HC 0 62 PH L AR 75 MA CY MG OF TA BL CY ET NT HI AN A TR 50 05 06 30 30 00 HO Ac AZ 11 -1 -1 .0 00 ME ti OD 10 2- 6- 00 06 TO ve ON 43 20 20 08 WN E 30 17 17 68 50 2 63 PH AR MG MA CY TA BL OF ET CY NT HI AN A CA 68 05 06 60 30 00 HO Ac RV 00 -1 -1 .0 00 ME ti ED 10 2- 6- 00 06 TO ve IL 15 20 20 08 WN OL 40 17 17 68 3 64 PH 6. AR 25 MA CY MG OF TA BL CY ET NT HI AN A MO 00 05 06 30 30 00 HO Ac RP 40 -1 -1 .0 00 ME ti HI 68 2- 6- 00 02 TO ve NE 31 20 20 01 WN 50 17 17 35 HENDERSON 1 06 PH LF AR MA ER CY 15 OF MG CY NT TA HI BL AN ET A LI 68 05 06 30 15 00 HO Ac SI 00 -1 -1 .0 00 ME ti NO 10 2- 6- 00 06 TO ve MS 27 20 20 07 WN IL 10 17 17 34 8 87 PH 40 AR MA MG CY TA OF BL ET CY NT HI AN A AM 68 05 06 30 30 00 HO Ac LO 38 -1 -1 .0 00 ME ti DI 20 2- 6- 00 06 TO ve PI 12 20 20 07 WN NE 20 17 17 60 5 57 PH BE AR SY MA LA CY TE 5 OF MG CY NT TA HI B AN A GA 68 04 05 90 30 00 HO Ac BA 00 -1 -1 .0 00 ME ti PE 10 8- 9- 00 06 TO ve NT 00 20 20 07 WN IN 70 17 17 74 3 18 PH 80 AR 0 MA MG CY TA OF BL ET CY NT HI AN A TI 55 04 05 90 30 00 HO Ac ZA 11 -1 -1 .0 00 ME ti NI 10 8- 9- 00 06 TO ve DI 17 20 20 07 WN NE 91 17 17 74 5 15 PH HC AR L MA 2 CY MG OF TA BL CY ET NT HI AN A TR 68 04 05 15 30 00 HO Ac IA 00 -1 -1 .0 00 ME ti MT 10 8- 9- 00 06 TO ve ER 21 20 20 08 WN EN 60 17 17 24 E- 0 46 PH HC AR TZ MA CY 37 .5 OF -2 5 CY MG NT HI TB AN A BU 68 04 05 60 30 00 HO Ac MS 00 -1 -1 .0 00 ME ti OP 10 2- 2- 00 06 TO ve IO 19 20 20 08 WN N 90 17 17 09 HC 0 78 PH L AR 75 MA CY MG OF TA BL CY ET NT HI AN A TR 50 04 05 30 30 00 HO Ac AZ 11 -1 -1 .0 00 ME ti OD 10 2- 2- 00 06 TO ve ON 43 20 20 08 WN E 30 17 17 09 50 2 79 PH AR MG MA CY TA BL OF ET CY NT HI AN A CA 68 04 05 60 30 00 HO Ac RV 00 -1 -1 .0 00 ME ti ED 10 2- 2- 00 06 TO ve IL 15 20 20 07 WN OL 40 17 17 95 3 08 PH 6. AR 25 MA CY MG OF TA BL CY ET NT HI AN A AM 68 04 05 30 30 00 HO Ac LO 38 -1 -1 .0 00 ME ti DI 20 2- 2- 00 06 TO ve PI 12 20 20 07 WN NE 20 17 17 60 5 57 PH BE AR SY MA LA CY TE 5 OF MG CY NT TA HI B AN A MO 00 04 05 30 30 00 HO Ac RP 40 -1 -1 .0 00 ME ti HI 68 2- 2- 00 02 TO ve NE 31 20 20 01 WN 50 17 17 33 HENDERSON 1 70 PH LF AR MA ER CY 15 OF MG CY NT TA HI BL AN ET A LI 68 04 05 30 15 00 HO Ac SI 00 -1 -1 .0 00 ME ti NO 10 2- 2- 00 06 TO ve MS 27 20 20 07 WN IL 10 17 17 34 8 87 PH 40 AR MA MG CY TA OF BL ET CY NT HI AN A GA 68 03 04 90 30 00 HO Ac BA 00 -1 -2 .0 00 ME ti PE 10 7- 1- 00 06 TO ve NT 00 20 20 07 WN IN 70 17 17 74 3 18 PH 80 AR 0 MA MG CY TA OF BL ET CY NT HI AN A TI 55 03 04 90 30 00 HO Ac ZA 11 -1 -2 .0 00 ME ti NI 10 7- 1- 00 06 TO ve DI 17 20 20 07 WN NE 91 17 17 74 5 15 PH HC AR L MA 2 CY MG OF TA BL CY ET NT HI AN A OX 53 03 04 90 30 00 HO Ac YC 74 -1 -1 .0 00 ME ti OD 60 3- 4- 00 02 TO ve ON 20 20 20 01 WN E- 30 17 17 30 AC 5 35 PH ET AR AM MA IN CY OP HE OF N 5- CY 32 NT 5 HI AN A MO 00 03 04 30 30 00 HO Ac RP 40 -1 -1 .0 00 ME ti HI 68 3- 4- 00 02 TO ve NE 31 20 20 01 WN 50 17 17 30 HENDERSON 1 34 PH LF AR MA ER CY 15 OF MG CY NT TA HI BL AN ET A AM 68 03 04 30 30 00 HO Ac LO 38 -1 -1 .0 00 ME ti DI 20 3- 4- 00 06 TO ve PI 12 20 20 07 WN NE 20 17 17 60 5 57 PH BE AR SY MA LA CY TE 5 OF MG CY NT TA HI B AN A LI 00 03 04 30 15 00 HO Ac SI 18 -1 -1 .0 00 ME ti NO 50 3- 4- 00 06 TO ve MS 64 20 20 07 WN IL 01 17 17 34 0 87 PH 40 AR MA MG CY TA OF BL ET CY NT HI AN A OM 68 03 04 30 30 00 HO Ac EP 46 -0 -0 .0 00 ME ti RA 20 2- 7- 00 06 TO ve ZO 39 20 20 08 WN LE 71 17 [address] AR MA 40 CY MG OF CA CY PS NT UL HI E AN A TR 68 03 04 15 30 00 HO Ac IA 00 -0 -0 .0 00 ME ti MT 10 2- 7- 00 06 TO ve ER 21 20 20 08 WN EN 60 17 17 24 E- 0 46 PH HC AR TZ MA CY 37 .5 OF -2 5 CY MG NT HI TB AN A GA 68 02 03 90 30 00 HO Ac BA 00 -1 -2 .0 00 ME ti PE 10 7- 4- 00 06 TO ve NT 00 20 20 07 WN IN 70 17 17 74 3 18 PH 80 AR 0 MA MG CY TA OF BL ET CY NT HI AN A TI 55 02 03 90 30 00 HO Ac ZA 11 -1 -1 .0 00 ME ti NI 10 4- 7- 00 06 TO ve DI 17 20 20 07 WN NE 91 17 17 74 5 15 PH HC AR L MA 2 CY MG OF TA BL CY ET NT HI AN A OX 53 02 03 90 30 00 HO Ac YC 74 -1 -1 .0 00 ME ti OD 60 1- 7- 00 02 TO ve ON 20 20 20 01 WN E- 30 17 17 28 AC 5 59 PH ET AR AM MA IN CY OP HE OF N 5- CY 32 NT 5 HI AN A TR 50 02 03 30 30 00 HO Ac AZ 11 -0 -1 .0 00 ME ti OD 10 7- 0- 00 06 TO ve ON 43 20 20 08 WN E 30 17 17 09 50 2 79 PH AR MG MA CY TA BL OF ET CY NT HI AN A BU 68 02 03 60 30 00 HO Ac MS 00 -0 -1 .0 00 ME ti OP 10 7- 0- 00 06 TO ve IO 19 20 20 08 WN N 90 17 17 09 HC 0 78 PH L AR 75 MA CY MG OF TA BL CY ET NT HI AN A ES 68 01 02 30 30 00 HO Ac CI 00 -2 -2 .0 00 ME ti TA 10 0- 4- 00 06 TO ve LO 19 20 20 07 WN MS 70 17 17 28 AM 3 59 PH AR 20 MA CY MG OF TA BL CY ET NT HI AN A GA 68 01 02 90 30 00 HO Ac BA 00 -2 -2 .0 00 ME ti PE 10 0- 4- 00 06 TO ve NT 00 20 20 07 WN IN 70 17 17 74 3 18 PH 80 AR 0 MA MG CY TA OF BL ET CY NT HI AN A AM 68 01 02 30 30 00 HO Ac LO 38 -2 -2 .0 00 ME ti DI 20 0- 4- 00 06 TO ve PI 12 20 20 07 WN NE 20 17 17 60 5 57 PH BE AR SY MA LA CY TE 5 OF MG CY NT TA HI B AN A MO 00 01 02 30 30 00 HO Ac RP 40 -1 -1 .0 00 ME ti HI 68 2- 7- 00 02 TO ve NE 31 20 20 01 WN 50 17 17 22 HENDERSON 1 83 PH LF AR MA ER CY 15 OF MG CY NT TA HI BL AN ET A OX 53 01 02 90 30 00 HO Ac YC 74 -1 -1 .0 00 ME ti OD 60 2- 7- 00 02 TO ve ON 20 20 20 01 WN E- 30 17 17 22 AC 5 82 PH ET AR AM MA IN CY OP HE OF N 5- CY 32 NT 5 HI AN A CA 68 01 02 60 30 00 HO Ac RV 00 -1 -1 .0 00 ME ti ED 10 3- 7- 00 06 TO ve IL 15 20 20 07 WN OL 40 17 17 95 3 08 PH 6. AR 25 MA CY MG OF TA BL CY ET NT HI AN A LI 00 01 02 30 15 00 HO Ac SI 18 -1 -1 .0 00 ME ti NO 50 2- 7- 00 06 TO ve MS 64 20 20 07 WN IL 01 17 17 34 0 87 PH 40 AR MA MG CY TA OF BL ET CY NT HI AN A TI 55 01 02 90 30 00 HO Ac ZA 11 -1 -1 .0 00 ME ti NI 10 2- 7- 00 06 TO ve DI 17 20 20 07 WN NE 91 17 17 74 5 15 PH HC AR L MA 2 CY MG OF TA BL CY ET NT HI AN A AM 68 12 01 30 30 00 HO Ac LO 38 -2 -2 .0 00 ME ti DI 20 3- 7- 00 06 TO ve PI 12 20 20 07 WN NE 20 16 17 60 5 57 PH BE AR SY MA LA CY TE 5 OF MG CY NT TA HI B AN A ES 68 12 01 30 30 00 HO Ac CI 00 -2 -2 .0 00 ME ti TA 10 3- 7- 00 06 TO ve LO 19 20 20 07 WN MS 70 16 17 28 AM 3 59 PH AR 20 MA CY MG OF TA BL CY ET NT HI AN A GA 68 12 01 90 30 00 HO Ac BA 00 -2 -2 .0 00 ME ti PE 10 0- 0- 00 06 TO ve NT 00 20 20 07 WN IN 70 16 17 74 3 18 PH 80 AR 0 MA MG CY TA OF BL ET CY NT HI AN A MO 00 12 01 30 30 00 HO Ac RP 40 -1 -1 .0 00 ME ti HI 68 3- 3- 00 02 TO ve NE 31 20 20 01 WN 50 16 17 22 HENDERSON 1 81 PH LF AR MA ER CY 15 OF MG CY NT TA HI BL AN ET A LI 00 12 01 30 15 00 HO Ac SI 18 -1 -1 .0 00 ME ti NO 50 3- 3- 00 06 TO ve MS 64 20 20 07 WN IL 01 16 17 34 0 87 PH 40 AR MA MG CY TA OF BL ET CY NT HI AN A CA 68 12 01 60 30 00 HO Ac RV 00 -1 -1 .0 00 ME ti ED 10 3- 3- 00 06 TO ve IL 15 20 20 06 WN OL 40 16 17 70 3 73 PH 6. AR 25 MA CY MG OF TA BL CY ET NT HI AN A TI 55 12 01 90 30 00 HO Ac ZA 11 -1 -1 .0 00 ME ti NI 10 2- 3- 00 06 TO ve DI 17 20 20 07 WN NE 91 16 17 74 5 15 PH HC AR L MA 2 CY MG OF TA BL CY ET NT HI AN A SO 00 01 0 No DI 40 -2 UM 97 0- Lo 98 20 ng CH 30 14 er LO 9 RI Ac DE ti ve 0. 9% SO RON TI ON Sa 63 01 0 No li 80 -2 ne 70 0- Lo 10 20 ng Fl 07 14 er us 5 h Ac 10 ti ML ve Sy ri ng e ON 00 01 0 No DA 64 -2 NS 16 0- Lo ET 08 20 ng RO 02 14 er N 5 HC Ac L ti 4 ve MG /2 ML AL MS 00 01 0 No ED 05 -2 NI 40 0- Lo SO 01 20 ng NE 82 14 er 0 20 Ac ti MG ve TA BL ET Ib 62 01 0 No up 58 -0 ro 40 8- Lo fe 74 20 ng n 70 14 er 60 1 0M Ac G ti Ta ve bl et ME 00 01 0 No TH 70 -0 YL 30 8- Lo MS 05 20 ng ED 10 14 er NI 1 SO Ac LO ti NE ve 80 MG /M L VL CY 51 01 0 No CL 07 -0 OB 90 8- Lo EN 64 20 ng ZA 42 14 er MS 0 IN Ac E ti 10 ve MG TA BL ET Ib 62 01 0 No up 58 -0 ro 40 8- Lo fe 74 20 ng n 70 14 er 60 1 0M Ac G ti Ta ve bl et LA [address] 40 -1 AT 97 4- Lo ED 95 20 ng 30 13 er RI 9 NG Ac ER ti S ve IN JE CT IO N DE 00 10 0 No PO 00 -0 -M 93 3- Lo ED 07 20 ng RO 30 13 er L 1 40 Ac ti MG ve /M L AL CY 51 10 0 No CL 07 -0 OB 90 3- Lo EN 64 20 ng ZA 42 13 er MS 0 IN Ac E ti 10 ve MG TA BL ET KE 00 10 0 No TO 40 -0 RO 93 3- Lo LA 79 20 ng C 50 13 er 30 1 Ac MG ti /M ve L AL SO 00 06 0 No DI 40 -1 UM 97 3- Lo 98 20 ng CH 30 13 er LO 9 RI Ac DE ti ve 0. 9% SO RON TI ON ME 00 06 0 No TO 40 -1 CL 93 3- Lo OP 41 20 ng RA 40 13 er NH 1 DE Ac ti 10 ve MG /2 ML AL DI 00 06 0 No PH 40 -1 EN 92 3- Lo HY [address] 03 13 er AM 1 IN Ac E ti 50 ve MG /M L SY RN G KE 00 06 0 No TO 40 -1 RO 93 3- Lo LA 79 20 ng C 50 13 er 30 1 Ac MG ti /M ve L AL Sa 63 06 0 No li 80 -1 ne 70 3- Lo 10 20 ng Fl 07 13 er us 5 h Ac 10 ti ML ve Sy ri ng e DI 00 05 0 No PH 40 -2 EN 92 0- Lo HY [address] 03 13 er AM 1 IN Ac E ti 50 ve MG /M L SY RN G MS 55 05 0 No OC 39 -2 HL 00 0- Lo OR 07 20 ng PE 71 13 er RA 0 ZI Ac NE ti ve 10 MG /2 ML VL Sa 63 05 0 No li 80 -2 ne 70 0- Lo 10 20 ng Fl 07 13 er us 5 h Ac 10 ti ML ve Sy ri ng e KE 00 05 0 No TO 40 -1 RO 93 7- Lo LA 79 20 ng C 60 13 er 60 1 Ac MG ti /2 ve ML AL AZ 59 05 0 No IT 76 -1 HR 23 7- Lo OM 06 20 ng YC 00 13 er IN 3 Ac 25 ti 0 ve MG TA BL ET BI 00 05 08 3 60 30 WA 71 MC Ac SO 37 -3 -2 .0 L- 22 KE ti MS 80 1- 6- 00 MA 09 NH ve OL 50 20 20 RT 6 E OL 30 11 11 JR -H [address] AR WI Z MA LL 5- CY IA 6. # M 25 F 10 MG 05 91 TA B 00 08 08 30 4 RI 89 PE Ac 60 -1 -1 .0 TE 49 TE ti 33 5- 5- 00 96 RS ve 88 20 20 AI ON 12 11 11 D , 8 PH II AR I MA GI CY LM AN 03 P 93 8 # 03 93 00 08 08 30 4 RI 89 PE Ac 60 -1 -1 .0 TE 49 TE ti 33 5- 5- 00 96 RS ve 88 20 20 AI ON 12 11 11 D , 8 PH II AR I MA GI CY LM AN 03 P 93 8 # 03 93 00 08 08 30 6 RI 89 ER Ac 37 -1 -1 .0 TE 45 EN ti 87 1- 1- 00 31 A ve 10 20 20 AI GR 80 11 11 D EG 1 PH OR AR Y MA R CY 03 93 8 # 03 93 IB 53 08 08 1 20 5 RI 89 ER Ac UP 74 -1 -1 .0 TE 45 EN ti RO 60 1- 1- 00 32 A ve FE 46 20 20 AI GR N 50 11 11 D EG 60 5 PH OR 0 AR Y MG MA R CY TA BL 03 ET 93 8 # 03 93 AM 00 08 08 21 7 RI 89 ER Ac OX 78 -1 -1 .0 TE 45 EN ti IC 12 1- 1- 00 34 A ve IL 61 20 20 AI GR LI 30 11 11 D EG N 5 PH OR 50 AR Y 0 MA R MG CY CA 03 PS 93 UL 8 E # 03 93 DE 00 08 08 6. 3 RI 89 ER Ac XA 05 -1 -1 00 TE 45 EN ti ME 44 1- 1- 0 35 A ve TH 18 20 20 AI GR 02 11 11 D EG ON 5 PH OR E AR Y 0. MA R 75 CY MG 03 93 TA 8 BL # ET 03 93 00 08 08 30 6 RI 89 ER Ac 37 -1 -1 .0 TE 45 EN ti 87 1- 1- 00 31 A ve 10 20 20 AI GR 80 11 11 D EG 1 PH OR AR Y MA R CY 03 93 8 # 03 93 ME 68 08 08 2 60 30 WA 71 RI Ac TO 64 -0 -0 .0 L- 29 SH ti MS 50 4- 4- 00 MA 60 ER ve OL 19 20 20 RT 5 OL 05 11 11 RI 9 PH CH TA AR AR RT MA D RA CY TE # 50 10 05 MG 91 TA B BI 00 05 07 3 60 30 WA 71 MC Ac SO 37 -3 -3 .0 L- 22 KE ti MS 80 1- 0- 00 MA 09 NH ve OL 50 20 20 RT 6 E OL 30 11 11 JR -H [address] AR WI Z MA LL 5- CY IA 6. # M 25 F 10 MG 05 91 TA B BI 00 05 07 3 60 30 WA 71 MC Ac SO 37 -3 -0 .0 L- 22 KE ti MS 80 1- 3- 00 MA 09 NH ve OL 50 20 20 RT 6 E OL 30 11 11 JR -H [address] AR WI Z MA LL 5- CY IA 6. # M 25 F 10 MG 05 91 TA B BI 00 05 06 3 60 30 WA 71 MC Ac SO 37 -3 -0 .0 L- 22 KE ti MS 80 1- 6- 00 MA 09 NH ve OL 50 20 20 RT 6 E OL 30 11 11 JR -H [address] AR WI Z MA LL 5- CY IA 6. # M 25 F 10 MG 05 91 TA B OX 10 05 05 0 90 30 WA 22 OS Ac YC 70 -2 -2 .0 L- 19 TR ti OD 20 7- 7- 00 MA 99 EI ve ON 00 20 20 RT 4 CH E 80 11 11 HC 1 PH RI L AR CH 15 MA AR CY D MG # TA 10 BL 05 ET 91 ME 54 05 05 0 30 30 WA 71 OS Ac LO 45 -2 -2 .0 L- 21 TR ti XI 80 7- 7- 00 MA 03 EI ve CA 96 20 20 RT 6 CH M 51 11 11 7. 0 PH RI 5 AR CH MG MA AR CY D TA # BL ET 10 05 91 Vital Signs 06-26-2013 16:34 Name Value Interpretat Reference Comment ion Range BP 88 mm[Hg] Diastolic BP Systolic 153 mm[Hg] Heart 64 /min Rate/Pulse O2% 100 % Respiratory 20 /min Rate 06-26-2013 15:54 Name Value Interpretat Reference Comment ion Range BP 77 mm[Hg] Diastolic BP Systolic 138 mm[Hg] Heart 75 /min Rate/Pulse O2% 100 % Respiratory 20 /min Rate 06-14-2013 18:14 Name Value Interpretat Reference Comment ion Range Body 98.1 [degF] Temperature BP 51 mm[Hg] Diastolic BP Systolic 126 mm[Hg] Heart 69 /min Rate/Pulse O2% 98 % Respiratory 20 /min Rate 06-14-2013 17:56 Name Value Interpretat Reference Comment ion Range BP 88 mm[Hg] Diastolic BP Systolic 141 mm[Hg] Heart 64 /min Rate/Pulse O2% 96 % Respiratory 20 /min Rate 05-20-2013 23:04 Name Value Interpretat Reference Comment ion Range BP 76 mm[Hg] Diastolic BP Systolic 121 mm[Hg] Heart 60 /min Rate/Pulse O2% 100 % Respiratory 20 /min Rate 05-20-2013 22:32 Name Value Interpretat Reference Comment ion Range Body 98.3 [degF] Temperature 05-20-2013 20:56 Name Value Interpretat Reference Comment ion Range Body 98.2 [degF] Temperature BP 93 mm[Hg] Diastolic BP Systolic 124 mm[Hg] Heart 61 /min Rate/Pulse O2% 98 % Respiratory 16 /min Rate 03-09-2013 23:10 Name Value Interpretat Reference Comment ion Range BP 88 mm[Hg] Diastolic BP Systolic 146 mm[Hg] Heart 94 /min Rate/Pulse O2% 97 % Respiratory 20 /min Rate 11-17-2012 16:28 Name Value Interpretat Reference Comment ion Range BP 74 mm[Hg] Diastolic BP Systolic 121 mm[Hg] Heart 70 /min Rate/Pulse O2% 99 % Respiratory 18 /min Rate 11-17-2012 14:29 Name Value Interpretat Reference Comment ion Range BP 71 mm[Hg] Diastolic BP Systolic 130 mm[Hg] Heart 68 /min Rate/Pulse O2% 98 % Respiratory 18 /min Rate 10-29-2012 19:06 Name Value Interpretat Reference Comment ion Range BP 76 mm[Hg] Diastolic BP Systolic 128 mm[Hg] Heart 58 /min Rate/Pulse O2% 97 % Respiratory 20 /min Rate 10-29-2012 18:51 Name Value Interpretat Reference Comment ion Range BP 81 mm[Hg] Diastolic BP Systolic 127 mm[Hg] Heart 69 /min Rate/Pulse O2% 98 % Respiratory 20 /min Rate 10-24-2012 15:03 Name Value Interpretat Reference Comment ion Range Body 97.5 [degF] Temperature BP 89 mm[Hg] Diastolic BP Systolic 168 mm[Hg] Heart 100 /min Rate/Pulse O2% 99 % Respiratory 20 /min Rate 10-24-2012 14:43 Name Value Interpretat Reference Comment ion Range BP 78 mm[Hg] Diastolic BP Systolic 129 mm[Hg] Heart 72 /min Rate/Pulse O2% 97 % Respiratory 18 /min Rate 10-21-2012 13:54 Name Value Interpretat Reference Comment ion Range Body 98.2 [degF] Temperature BP 68 mm[Hg] Diastolic BP Systolic 148 mm[Hg] Heart 85 /min Rate/Pulse O2% 98 % Respiratory 18 /min Rate 10-21-2012 11:55 Name Value Interpretat Reference Comment ion Range BP 90 mm[Hg] Diastolic BP Systolic 142 mm[Hg] Heart 66 /min Rate/Pulse O2% 98 % Respiratory 20 /min Rate Results Labs Lab Lab Date Result Refere Interp Status Commen Order Detail nces retati t Range on Drugs identified in Urine by Screen method (03-03-2017 16:00) Ampheta NEGATIV <1000 complet mine 017 E ed [Presen 16:00 ce] in Urine by Screen method 11-Hydr NEGATIV <50 complet oxy 017 E ed delta-9 16:00 tetrahy drocann abinol [Presen ce] in Unspeci fied specime n STREP SCREEN (RAPID) (06-26-2013 14:40) STREP NEGATIV complet SCREEN 014 E ed (RAPID) 14:40 COMPREHENSIVE METABOLIC PANEL (05-20-2013 21:25) Glucose 96 74-106 complet 013 mg/dL ed Bld-mCn 21:25 c BUN 16 7-18 complet Bld-mCn 013 mg/dL ed c 21:25 Creat 1.4 0.8-1.3 complet SerPl-m 013 mg/dL ed Cnc 21:25 Creat 106 50-200 complet Cl 013 ML/MIN ed predict 21:25 ed SerPl C-G-vRa te GFR/BSA 56 Greater complet .pred 013 ML/MIN than ed SerPl 21:25 60 Schwart z-vRate Sodium 133 136-145 complet SerPl-s 013 mmoL/L ed Cnc 21:25 Potassi 3.3 3.5-5.1 complet um 013 mmoL/L ed SerPl-s 21:25 Cnc Chlorid 92 98-107 complet e 013 mmoL/L ed SerPl-s 21:25 Cnc CO2 12-14-2 30 21.0-32 complet SerPl-s 013 mmoL/L .0 ed Cnc 21:25 Calcium 12-14-2 9.1 8.5-10. complet 013 mg/dL 1 ed SerPl-m 21:25 Cnc Prot 12-14-2 8.9 6.4-8.2 complet SerPl-m 013 gm/dL ed Cnc 21:25 Albumin 12-14-2 4.6 3.4-5.0 complet 013 gm/dL ed SerPl-m 21:25 Cnc Globuli 12-14-2 4.3 1.3-3.2 complet n 013 gm/dL ed Ser-mCn 21:25 c Albumin 12-14-2 1.1 UNK 1.1-1.8 complet /Glob 013 ed SerPl-m 21:25 Rto Bilirub 12-14-2 0.9 0.2-1.0 complet 013 mg/dL ed SerPl-m 21:25 Cnc AST 12-14-2 44 U/L 15-37 complet SerPl-c 013 ed Cnc 21:25 ALT 12-14-2 78 U/L 30-65 complet SerPl-c 013 ed Cnc 21:25 ALP 12-14-2 76 U/L 50-136 complet SerPl-c 013 ed Cnc 21:25 CK SerPl-cCnc (05-20-2013 21:25) CK 12-14-2 676 U/L 39-308 complet SerPl-c 013 ed Cnc 21:25 CBC with AUTO DIFF (05-20-2013 21:25) WBC # 12-14-2 7.9 4.8-10. complet Bld 013 K/MM3 8 ed Auto 21:25 RBC # 12-14-2 4.91 4.6-6.2 complet Bld 013 M/mm3 ed Auto 21:25 Hgb 12-14-2 15.0 14.1-18 complet Bld-mCn 013 g/dL .0 ed c 21:25 Hct Fr 12-14-2 43.3 % 42.0-52 complet Bld 013 .0 ed 21:25 MCV RBC 12-14-2 88.3 fl 82.2-97 complet 013 .8 ed 21:25 MCH RBC 12-14-2 30.6 pg 27-31.2 complet Qn 013 ed Auto 21:25 MEAN 12-14-2 34.6 31.8-35 complet CORPUSC 013 g/dl .4 ed ULAR 21:25 HGB CONC RDW RBC 12-14-2 14.0 % 11.5-17 complet Auto 013 .5 ed 21:25 Platele 12-14-2 230 142-424 complet t Bld 013 K/mm3 ed Ql 21:25 Manual MEAN 12-14-2 8.6 fl 7.4-10. complet PLATELE 013 4 ed T 21:25 VOLUME Granulo 12-14-2 56.2 % 37.0-80 complet cytes 013 .0 ed Fr Bld 21:25 Auto LYMPH % 12-14-2 33.9 % 10-50 complet 013 ed 21:25 Monocyt 12-14-2 6.8 % 1.7-9.3 complet es Fr 013 ed Bld 21:25 Auto Eosinop 12-14-2 2.5 % 0.1-12. complet hil Fr 013 0 ed Bld 21:25 Auto Basophi 12-14-2 0.5 % 0.1-2.0 complet ls Fr 013 ed Bld 21:25 Auto Granulo 12-14-2 4.4 1.3-8.0 complet cytes # 013 K/mm3 ed Bld 21:25 Auto Lymphoc 12-14-2 2.7 0.7-4.5 complet ytes Fr 013 K/mm3 ed Bld 21:25 Auto Monocyt 12-14-2 0.5 0.1-1.0 complet es # 013 K/mm3 ed Bld 21:25 Auto Eosinop 12-14-2 0.2 0.0-0.4 complet hil # 013 K/mm3 ed Bld 21:25 Auto Basophi 12-14-2 0.0 0-0.2 complet ls # 013 K/MM3 ed Bld 21:25 Auto URINALYSIS/COMPLETE (05-20-2013 21:15) URINE 12-14-2 YELLOW YELLOW complet COLOR 013 ed 21:15 URINE 12-14-2 CLEAR CLEAR complet APPEARA 013 ed NCE 21:15 URINE 12-14-2 NEGATIV NEG complet GLUCOSE 013 E ed - 21:15 DIPSTIC K URINE 12-14-2 NEGATIV NEG complet BILIRUB 013 E ed IN - 21:15 DIPSTIC K URINE 05-20-2 NEGATIV NEG complet KETONE 013 E mg/dL ed 21:15 URINE 12--2 Greater 1.005-1 complet SPECIFI 013 than .030 ed C 21:15 or GRAVITY equal to 1.030 URINE 05-20-2 TRACE-I NEG complet BLOOD 013 NTACT ed 21:15 URINE 14-2 6.0 UNK 5.0-8.5 complet PH 013 ed 21:15 URINE 05-20-2 TRACE NEG complet PROTEIN 013 mg/dL ed - 21:15 DIPSTIC K URINE 14-2 0.2 NEG complet UROBILI 013 E.U./dL ed NOGEN - 21:15 DIPSTIC K URINE 05-20-2 NEGATIV NEG complet NITRATE 013 E ed - 21:15 DIPSTIC K URINE 14-2 NEGATIV NEG complet LEUK 013 E ed ESTERAS 21:15 E URINE 05-20-2 OCC 0 complet RBC 013 rbc/hpf ed 21:15 URINE 05-20-2 OCC O complet WBC 013 wbc/hpf ed 21:15 STREP SCREEN (RAPID) (05-20-2013 20:35) STREP 05-20-2 NEGATIV complet SCREEN 013 E ed (RAPID) 20:35 COMPREHENSIVE METABOLIC PANEL (11-17-2012 14:20) Glucose 122 74-106 complet 013 mg/dL ed Bld-mCn 14:20 c BUN 14 7-18 complet Bld-mCn 013 mg/dL ed c 14:20 Creat 1.5 0.8-1.3 complet SerPl-m 013 mg/dL ed Cnc 14:20 ESTIMAT 103 50-200 complet ED 013 ML/MIN ed CREATIN 14:20 INE CLEARAN CE GFR 52 Greater complet (ESTIMA 013 ML/MIN than ed OZIEL) 14:20 60 Sodium 136 136-145 complet SerPl-s 013 mmoL/L ed Cnc 14:20 Potassi 3.4 3.5-5.1 complet um 013 mmoL/L ed SerPl-s 14:20 Cnc Chlorid 97 98-107 complet e 013 mmoL/L ed SerPl-s 14:20 Cnc CO2 13-2 32 21.0-32 complet SerPl-s 013 mmoL/L .0 ed Cnc 14:20 Calcium 13-2 9.0 8.5-10. complet 013 mg/dL 1 ed SerPl-m 14:20 Cnc Prot 11-17-2 7.9 6.4-8.2 complet SerPl-m 013 gm/dL ed Cnc 14:20 Albumin 13-2 4.2 3.4-5.0 complet 013 gm/dL ed SerPl-m 14:20 Cnc Globuli 11-17-2 3.7 1.3-3.2 complet n 013 gm/dL ed Ser-mCn 14:20 c Albumin 11-17-2 1.1 UNK 1.1-1.8 complet /Glob 013 ed SerPl-m 14:20 Rto Bilirub 11-17-2 0.6 0.2-1.0 complet 013 mg/dL ed SerPl-m 14:20 Cnc AST 11-17-2 23 U/L 15-37 complet SerPl-c 013 ed Cnc 14:20 ALT 11-17-2 56 U/L 30-65 complet SerPl-c 013 ed Cnc 14:20 ALP 11-17-2 71 U/L 50-136 complet SerPl-c 013 ed Cnc 14:20 Ethanol Bld-mCnc (11-17-2012 14:20) Ethanol 13-2 0 mg/dL 0-99 complet 013 ed Bld-mCn 14:20 c CBC with AUTO DIFF (11-17-2012 14:20) WBC # -13-2 7.2 4.8-10. complet Bld 013 K/MM3 8 ed Auto 14:20 RBC # 06-13-2 4.71 4.6-6.2 complet Bld 013 M/mm3 ed Auto 14:20 Hgb 11-17-2 14.0 14.1-18 complet Bld-mCn 013 g/dL .0 ed c 14:20 Hct Fr 11-17-2 41.0 % 42.0-52 complet Bld 013 .0 ed 14:20 MCV RBC 11-17-2 87.1 fl 82.2-97 complet 013 .8 ed 14:20 MCH RBC 11-17-2 29.7 pg 27-31.2 complet Qn 013 ed Auto 14:20 MEAN 06-13-2 34.1 31.8-35 complet CORPUSC 013 g/dl .4 ed ULAR 14:20 HGB CONC RDW RBC 06-13-2 12.8 % 11.5-17 complet Auto 013 .5 ed 14:20 Platele 06-13-2 224 142-424 complet t Bld 013 K/mm3 ed Ql 14:20 Manual MEAN 06-13-2 8.1 fl 7.4-10. complet PLATELE 013 4 ed T 14:20 VOLUME Granulo 06-13-2 73.0 % 37.0-80 complet cytes 013 .0 ed Fr Bld 14:20 Auto LYMPH % 06-13-2 20.5 % 10-50 complet 013 ed 14:20 Monocyt 06-13-2 4.4 % 1.7-9.3 complet es Fr 013 ed Bld 14:20 Auto Eosinop 06-13-2 1.6 % 0.1-12. complet hil Fr 013 0 ed Bld 14:20 Auto Basophi 06-13-2 0.4 % 0.1-2.0 complet ls Fr 013 ed Bld 14:20 Auto Granulo 06-13-2 5.2 1.3-8.0 complet cytes # 013 K/mm3 ed Bld 14:20 Auto Lymphoc 06-13-2 1.5 0.7-4.5 complet ytes Fr 013 K/mm3 ed Bld 14:20 Auto Monocyt 06-13-2 0.3 0.1-1.0 complet es # 013 K/mm3 ed Bld 14:20 Auto Eosinop 06-13-2 0.1 0.0-0.4 complet hil # 013 K/mm3 ed Bld 14:20 Auto Basophi 06-13-2 0.0 0-0.2 complet ls # 013 K/MM3 ed Bld 14:20 Auto COMPREHENSIVE METABOLIC PANEL (10-24-2012 14:05) Glucose 10-24-2 115 74-106 complet 013 mg/dL ed Bld-mCn 14:05 c BUN 10-24-2 10 7-18 complet Bld-mCn 013 mg/dL ed c 14:05 Creat 10-24-2 1.3 0.8-1.3 complet SerPl-m 013 mg/dL ed Cnc 14:05 ESTIMAT 10-24- 115 50-200 complet ED 013 ML/MIN ed CREATIN 14:05 INE CLEARAN CE GFR 61 Greater complet (ESTIMA 013 ML/MIN than ed OZIEL) 14:05 60 Sodium 10-24- 138 136-145 complet SerPl-s 013 mmoL/L ed Cnc 14:05 Potassi 4.0 3.5-5.1 complet um 013 mmoL/L ed SerPl-s 14:05 Cnc Chlorid 10-24- 100 98-107 complet e 013 mmoL/L ed SerPl-s 14:05 Cnc CO2 29 21.0-32 complet SerPl-s 013 mmoL/L .0 ed Cnc 14:05 Calcium 8.9 8.5-10. complet 013 mg/dL 1 ed SerPl-m 14:05 Cnc Prot 7.3 6.4-8.2 complet SerPl-m 013 gm/dL ed Cnc 14:05 Albumin 3.7 3.4-5.0 complet 013 gm/dL ed SerPl-m 14:05 Cnc Globuli 3.6 1.3-3.2 complet n 013 gm/dL ed Ser-mCn 14:05 c Albumin 2 1.0 UNK 1.1-1.8 complet /Glob 013 ed SerPl-m 14:05 Rto Bilirub 0.4 0.2-1.0 complet 013 mg/dL ed SerPl-m 14:05 Cnc AST 23 U/L 15-37 complet SerPl-c 013 ed Cnc 14:05 ALT 10-24- 59 U/L 30-65 complet SerPl-c 013 ed Cnc 14:05 ALP 10-24- 73 U/L 50-136 complet SerPl-c 013 ed Cnc 14:05 CBC with AUTO DIFF (10-24-2012 14:05) WBC # 05-20-2 7.9 4.8-10. complet Bld 013 K/MM3 8 ed Auto 14:05 RBC # 20-2 4.93 4.6-6.2 complet Bld 013 M/mm3 ed Auto 14:05 Hgb 05-20-2 14.4 14.1-18 complet Bld-mCn 013 g/dL .0 ed c 14:05 Hct Fr 05-20-2 43.1 % 42.0-52 complet Bld 013 .0 ed 14:05 MCV RBC 05-20-2 87.5 fl 82.2-97 complet 013 .8 ed 14:05 MCH RBC 05-20-2 29.1 pg 27-31.2 complet Qn 013 ed Auto 14:05 MEAN 05-20-2 33.3 31.8-35 complet CORPUSC 013 g/dl .4 ed ULAR 14:05 HGB CONC RDW RBC 05-20-2 12.5 % 11.5-17 complet Auto 013 .5 ed 14:05 Platele 05-20-2 226 142-424 complet t Bld 013 K/mm3 ed Ql 14:05 Manual MEAN 05-20-2 8.2 fl 7.4-10. complet PLATELE 013 4 ed T 14:05 VOLUME Granulo 05-20-2 70.0 % 37.0-80 complet cytes 013 .0 ed Fr Bld 14:05 Auto LYMPH % 05-20-2 21.5 % 10-50 complet 013 ed 14:05 Monocyt 05-20-2 4.9 % 1.7-9.3 complet es Fr 013 ed Bld 14:05 Auto Eosinop 05-20-2 3.1 % 0.1-12. complet hil Fr 013 0 ed Bld 14:05 Auto Basophi 05-20-2 0.6 % 0.1-2.0 complet ls Fr 013 ed Bld 14:05 Auto Granulo 05-20-2 5.6 1.3-8.0 complet cytes # 013 K/mm3 ed Bld 14:05 Auto Lymphoc 05-20-2 1.7 0.7-4.5 complet ytes Fr 013 K/mm3 ed Bld 14:05 Auto Monocyt 05-20-2 0.4 0.1-1.0 complet es # 013 K/mm3 ed Bld 14:05 Auto Eosinop 05-20-2 0.2 0.0-0.4 complet hil # 013 K/mm3 ed Bld 14:05 Auto Basophi 05-20-2 0.1 0-0.2 complet ls # 013 K/MM3 ed Bld 14:05 Auto Procedures Procedure [place] [address] GIORGIO MYERS GLUTAMYLT 7 BOZENA HERNANDEZ MD,PSC GAMMA COMPREHEN 28638 GIORGIO MYERS SIVE 7 NATACHA HERNANDEZ MD,PSC PANEL BILIRUBIN 38037 GIORGIO MYERS DIRECT 7 MD DAVID,[place] [address] GIORGIO MYERS PHOSPHORU 7 Alexis HERNANDEZ MD,PSC INORGANIC BLOOD 69972 GIORGIO MYERS COUNT 7 MILTON HERNANDEZ MD,PSC AUTO&AUTO DIFRNTL WBC CHIROPRAC 41469 MELANI FERNANDEZON TIC 7 MANIPULAT [place] SPINAL 1-2 REGIONS FACE MASK A7031 JHOAN STAPLES 7 HOME HOME INTERFACE MEDICAL MEDICAL REPLCMT EQUIPME EQUIPME FULL FACE MASK EA BASIC 25333 [facility] METABOLIC 7 [facility] PANEL [facility] INC CALCIUM TOTAL COLLECTIO 07192 [facility] N VENOUS 7 [facility] BLOOD INC INC VENIPUNCT URE HEPATIC 71725 [facility] FUNCTION 7 [facility] PANEL INC INC LIPID 44019 [facility] PANEL 7 [facility] INC INC ECG 73961 ADNNY BEE ROUTINE 7 PHYSICIAN ECG S, PLLC W/LEAST 12 LDS I&R ONLY CREATINE 37537 [facility] KINASE MB 7 [facility] FRACTION INC INC ONLY COMPREHEN 46744 [facility] SIVE 7 [facility] METABOLIC INC INC PANEL CREATINE 82054 [facility] KINASE 7 [facility] [place] [address] [facility] TROPONIN 7 [facility] QUANTITAT INC INC [place] CATH PLMT 80933 [facility] L HRT & 7 [facility] ARTS INC INC W/NJX & ANGIO IMG S&I BLOOD 12565 [facility] COUNT 7 [facility] COMPLETE INC INC AUTO&AUTO DIFRNTL WBC CATHETER C1725 [facility] TRANSLUMI 7 [facility] NAL INC INC ANGIOPLAS TY NON-LASER GUIDE C1769 [facility] WIRE 7 [facility] INC INC RADIOLOGI 67856 [facility] C EXAM [facility] CHEST 2 INC INC VIEWS FRONTAL&L ATERAL RADIOLOGI 09090 [facility] C EXAM 7 MEDICAL MEDICAL CHEST 2 IMAGING IMAGING VIEWS ASS ASS FRONTAL&L ATERAL BLOOD 48208 [facility] COUNT [facility] COMPLETE INC INC AUTO&AUTO DIFRNTL WBC THER 08623 [facility] PROPH/DX [facility] NJX IV INC INC PUSH SINGLE/1S T SBST/DRUG ECG 69136 [facility] ROUTINE [facility] ECG INC INC W/LEAST 12 LDS TRCG ONLY W/O I&[place] [address] [facility] TROPONIN [facility] QUANTITAT INC INC [place] CREATINE 02357 [facility] KINASE [facility] TOTAL INC INC COMPREHEN 67385 [facility] SIVE 7 [facility] METABOLIC INC INC PANEL CREATINE 18269 [facility] KINASE MB [facility] FRACTION INC INC ONLY ECG 38108 DANNY BEE ROUTINE 7 PHYSICIAN ECG S, PLLC W/LEAST 12 LDS I&R ONLY ECG 45100 [facility] ROUTINE [facility] ECG INC INC W/LEAST 12 LDS TRCG ONLY W/O I&R DRUG TEST [id number] GIORGIO MYERS 6 DAVID TURNER PRESUMP;I PSC NSTRUMENT ED CHEMISTRY ANLYZER FILTER A7038 JHOAN STAPLES DISPBL 6 HOME HOME USED MEDICAL MEDICAL W/POS EQUIPME EQUIPME ARWAY PRESSURE DEVICE FACE MASK A7031 JHOAN STAPLES 6 HOME HOME INTERFACE MEDICAL MEDICAL REPLCMT EQUIPME EQUIPME FULL FACE MASK EA IMPLANTAT 31772 HARDEEP MEIER ION [facility] PT-ACTIVA INC INC OZIEL CARDIAC EVENT RECORDER EVENT [id number] HARDEEP MEIER RECORDER [facility] CARDIAC INC INC RADIOLOGI 93255 [place] ALIZA ALL C 6 MEDICAL EXAMINATI IMAGING ON CHEST ASS SINGLE VIEW FRONTAL CT THORAX 62187 [facility] ABR[facility] ALL 6 MEDICAL W/CONTRAS IMAGING T ASS MATERIAL ECG 19347 HARDEEP KEITH JR ROUTINE 6 [facility] W/LEAST P 12 LDS I&[place] [address] GIORGIO ALVARES GLUTAMYLT 6 [facility] HERNANDEZ MD,PSC GAMMA COMPREHEN 11203 GIORGIO ALVARES SIVE 6 [facility] [place] [address] GIORGIO ALVARES PHOSPHORU 6 [facility] HERNANDEZ MD,PSC INORGANIC BILIRUBIN 08387 GIORGIO ALVARES DIRECT 6 [place] HERNANDEZ MD,[facility] BLOOD 51046 ALVARES ALVARES COUNT 6 [place] HERNANDEZ MD,PSC AUTO&AUTO DIFRNTL WBC TUBING A7037 JHOAN GARCIA USED WITH 6 HOME MARTHA POSITIVE MEDICAL AIRWAY EQUIPME PRESSURE DEVICE HEADGEAR A7035 JHOAN GARCIA USED 6 HOME MARTHA W/POSITIV MEDICAL E AIRWAY EQUIPME PRESSURE DEVICE FILTER A7038 JHOAN GARCIA DISPBL 6 HOME [facility] USED MEDICAL W/POS EQUIPME ARWAY PRESSURE DEVICE FULL FACE A7030 JHOAN GARCIA MASK 6 HOME MARTHA USED MEDICAL W/POS [place]IP[place]X [address] STONE STONE ANES&/STR [address] D W/IMG SURGERY SURGERY [facility] EDRL LMBR/SAC 1 LVL NJX [address]9 [place] STONE ANES&/STR [address] D W/IMG SURGERY SURGERY [facility] EDRL LMBR/SAC EA LV CHIROPRAC 81163 POLO POLO TIC 6 [facility] [place] [place] SPINAL 1-2 REGIONS CHIROPRAC 11025 POLO POLO TIC 6 [facility] SPINAL 1-2 REGIONS MRI 18737 [facility] 6 CANAL ORTHOPAED LUMBAR ICS PSC W/O CONTRAST MATERIAL DRUG TEST [id number] GIORGIO MYERS 6 MIRIAM HERNANDEZ PRESUMP;I ,PSC NSTRUMENT ED CHEMISTRY ANLYZER CUL BACT 16180 HARDEEP MEIER XCPT 6 [facility] URINE INC INC BLOOD/STO OL AEROBIC ISOL RADIOLOGI 36380 [facility] C EXAM 6 MEDICAL [place] CHEST 2 IMAGING VIEWS ASS FRONTAL&L ATERAL BLOOD 49838 HARDEEP MEIER COUNT 6 [facility] COMPLETE INC INC AUTO&AUTO DIFRNTL WBC PRESSURIZ 00347 HARDEEP ALLEN ED/NONPRE 6 [facility] SSUR[place] [address] HARDEEP HARDEEP INFUSION [facility] THERAPY/P INC INC ROPHYLAXI S /DX 1ST TO 1 [place] [address] HARDEEP ALLEN STREPTOCO 6 [facility] CCUS INC GROUP A THERAPEUT 21520 HARDEEP HARDEEP IC [facility] INJECTION INC INC IV PUSH EACH NEW DRUG RADEX 49764 [facility] SPINE 6 LUMBOSACR ORTHOPAED AL 2/3 ICS PSC VIEWS ECG 34331 [facility] R[facility]INE 6 [facility] ECG MEDICAL W/LEAST GROUP 12 LDS W/I&R RADIOLOGI 55294 [facility] C EXAM 6 MEDICAL CHEST 2 IMAGING VIEWS ASS FRONTAL&L ATERAL CONTINUOU E0601 JHOAN STAPLES S 6 HOME HOME POSITIVE MEDICAL MEDICAL AIRWAY EQUIPME EQUIPME PRESSURE DEVICE ECG 06581 HARDEEP TRACY ROUTINE [address] [facility] W/LEAST P 12 LDS I&R ONLY RADIOLOGI 46908 [facility] C EXAM 6 MEDICAL [place] CHEST 2 IMAGING VIEWS ASS FRONTAL&L ATERAL CHIROPRAC 07019 MELANI POLO TIC 6 [facility] [place] SPINAL 1-2 REGIONS OUTPATIEN 20101 HARDEEP MEIER T CARDIAC 6 [facility] REHAB INC INC W/CONT ECG MONITORIN G COMPREHEN 60164 GIORGIO ALVARES SIVVince 6 [place]IV[place] [address] GIORGIO ALVARES GLUTAMYLT 6 NATIVIDAD HERNANDEZ MD,PSC GAMMA BILIRUBIN 62827 GIORGIO ALVARES DIRECT 6 [place]IVID[place]DE[place] MD,[place] [address] GIORGIO ALVARES PHOSPHORU 6 NATIVIDAD HERNANDEZ MD,PSC INORGANIC BLOOD 93874 GIORGIO ALVARES COUNT 6 NATIVIDAD HERNANDEZ MD,PSC AUTO&AUTO DIFRNTL WBC THERAPEUT 10428 [facility] SALLIE IC 6 PHYSICIAN ANDERSEN PROPHYLAC S GROUP TIC/DX INJECTION SUBQ/IM INJECTION J0696 [facility] SALLIE 6 PHYSICIAN ANDERSEN CEFTRIAXO S GROUP NE SODIUM PER 250 MG INJECTION J1040 [facility] SALLIE 6 PHYSICIAN ANDERSEN METHYLPRE S GROUP DNISOLONE ACETATE 80 MG BLOOD 28562 HARDEEP MEIER COUNT 6 [facility] COMPLETE INC INC AUTO&AUTO DIFRNTL WBC PROTEIN 74527 HARDEEP MEIER XCPT 6 [facility] REFRACTOM INC INC ETRY SERUM PLASMA/WH L BLD COLLECTIO 76557 HARDEEP MEIER N VENOUS 6 [facility] BLOOD INC INC VENIPUNCT URE CREATININ 19719 HARDEEP MEIER E OTHER 6 [facility] SOURCE INC INC RENAL 02165 HARDEEP MEIER FUNCTION 6 [facility] PANEL INC INC URNLS DIP 22195 HARDEEP MEIER 6 [facility] STICK/TAB INC INC LET REAGENT AUTO MICROSCOP Y CONTINUOU E0601 JHOAN STAPLSE S 6 HOME HOME POSITIVE MEDICAL MEDICAL AIRWAY EQUIPME EQUIPME PRESSURE DEVICE FACE MASK A7031 JHOAN STAPLES 6 HOME HOME INTERFACE MEDICAL MEDICAL REPLCMT EQUIPME EQUIPME FULL FACE MASK EA FILTER A7038 JHOAN STAPLES DISPBL 6 HOME HOME USED MEDICAL MEDICAL W/POS EQUIPME EQUIPME ARWAY PRESSURE DEVICE FILTER A7039 JHOAN STAPLES NON 6 HOME HOME DISPBL MEDICAL MEDICAL USED EQUIPME EQUIPME W/POS ARWAY PRESS DEVICE TUBING A7037 JHOAN STAPLES USED WITH 6 HOME HOME POSITIVE MEDICAL MEDICAL AIRWAY EQUIPME EQUIPME PRESSURE DEVICE CREATININ 36392 HARDEEP MEIER E OTHER 6 [facility] SOURCE INC INC COMPREHEN 71800 HARDEEP HARDEEP SIVE 6 [facility] METABOLIC INC INC PANEL COLLECTIO 03776 HARDEEP HARDEEP N VENOUS 6 [facility] BLOOD INC INC VENIPUNCT URE NON-INVAS 94382 [facility] ALL 6 MEDICAL PHYSIOLOG IMAGING IC STD ASS EXTREMITY ART 2 LEVEL CHIROPRAC 60987 MELANI POLO TIC 6 [facility] HUM[facility]ERT[facility] MANIPULAT SASCHA [place] SPINAL 1-2 REGIONS RADEX 89415 MELANI FERNANDEZON SPINE 6 HUMBERTO HUMBERTO CERVICAL 2 OR 3 VIEWS DRUG TEST G0479 GIORGIO MYERS 6 DAVID, PRESUMP;I ,PSC NSTRUMENT ED CHEMISTRY ANLYZER ECHO 08208 SHAMAR JACKSON BENNETT TTC R-T 6 MEDICAL 2D SERV W/WOM-MOD FOUNDATIO E COMPL N SPEC&COLR D BASIC 47351 HARDEEP MEIER METABOLIC 6 [facility] PANEL INC INC CALCIUM TOTAL DRUG TST G0477 HARDEEP MEIER PRESUMP;C 6 [facility] PBL BEING INC INC READ DC OPT OBV ONLY OBSERVATI 55717 [facility] FRYMAN ON CARE 6 PHYSICIAN EUG DISCHARGE S GROUP MANAGEMEN T SBSQ 59655 [facility] FRYMAN OBSERVATI 6 PHYSICIAN EUG ON S GROUP CARE/DAY 15 MINUTES RADEX HIP 48996 [facility] ALL 6 MEDICAL UNILATERA IMAGING L WITH ASS PELVIS 1 VIEW RADIOLOGI 41459 [facility] ALL C EXAM 6 MEDICAL CHEST 2 IMAGING VIEWS ASS FRONTAL&L ATERAL INITIAL 21513 [facility] FRYMAN OBSERVATI 6 PHYSICIAN EUG ON S GROUP CARE/DAY 50 MINUTES POLYSOM 22493 HARDEEP MEIER 6/>YRS 6 [facility] SLEEP INC INC W/CPAP 4/> ADDL LOCO ATTND TUBING A7037 JHOAN STAPLES USED WITH 6 HOME HOME POSITIVE MEDICAL MEDICAL AIRWAY EQUIPME EQUIPME PRESSURE DEVICE FILTER A7038 JHOAN STAPLES DISPBL 6 HOME HOME USED MEDICAL MEDICAL W/POS EQUIPME EQUIPME [place]AY PRESSURE DEVICE NJX 47956 GIORGIO MYERS ANES&/STR 6 MIRIAM HERNANDEZ W/ANA MARIA TURNER,PSC TFRML EDRL LMBR/SAC [place] LV NJX 75370 GIORGIO MYERS ANES&/STR 6 MIRIAM HERNANDEZ W/ANA MARIA TURNER,PSC TFRML EDRL LMBR/SAC 1 LVL FACE MASK A7031 JHOAN STAPLES 6 HOME HOME INTERFACE MEDICAL MEDICAL REPLCMT EQUIPME EQUIPME FULL FACE MASK EA INJECTION J0696 [facility] GUNNER 6 PHYSICIAN KETAN CEFTRIAXO S GROUP NE SODIUM PER 250 MG INJECTION J1040 [facility] GUNNER 6 PHYSICIAN KETAN METHYLPRE S GROUP DNISOLONE ACETATE 80 MG THERAPEUT 98992 [facility] GUNNER IC 6 PHYSICIAN KETAN PROPHYLAC S GROUP TIC/DX INJECTION SUBQ/IM CONTINUOU E0601 JHOAN STAPLES S 5 HOME HOME POSITIVE MEDICAL MEDICAL AIRWAY EQUIPME EQUIPME PRESSURE DEVICE CONTINUOU E0601 JHOAN STAPLES S 5 HOME HOME POSITIVE MEDICAL MEDICAL AIRWAY EQUIPME EQUIPME PRESSURE DEVICE ECG 08634 HARDEEP MEIER ROUTINE 5 [facility] ECG INC INC W/LEAST 12 LDS TRCG ONLY W/O I&R ECG 17064 CARDIOVAS JOSE ROUTINE 5 CULAR MAT ECG CONSULTAN W/LEAST TS O 12 LDS I&R ONLY ECG 93736 HARDEEP KEITH JR ROUTINE 5 [facility] W/LEAST P 12 LDS I&R ONLY COMPREHEN 88816 HARDEEP MEIER SIVE 5 [facility] METABOLIC INC INC PANEL COLLECTIO 32372 HARDEEP MEIER N VENOUS [facility] [place] [address] HARDEEP MEIER TROPONIN 5 [facility] QUANTITAT INC INC SASCHA ECG 28751 HARDEEP MEIER ROUTINE 5 [facility] ECG INC INC W/LEAST 12 LDS TRCG ONLY W/O I&R BLOOD 57399 HARDEEP MEIER COUNT 5 [facility] COMPLETE INC INC AUTO&[place] [address] DI ABRAMS ALL 2 VIEWS 5 MEDICAL FRNT & IMAGING LAT ASS APICAL LORDOTIC PX FACE MASK A7031 JHOAN JHOAN 5 HOME HOME INTERFACE MEDICAL MEDICAL REPLCMT EQUIPME EQUIPME FULL FACE MASK EA FILTER A7038 JHOAN JHOAN DISPBL 5 HOME HOME USED MEDICAL MEDICAL W/POS EQUIPME EQUIPME ARWAY PRESSURE DEVICE ECG 41918 HARDEEP MEIER ROUTINE 5 [facility] ECG INC INC W/LEAST 12 LDS TRCG ONLY W/O I&R CONTINUOU E0601 JHOAN JHOAN S 5 HOME HOME POSITIVE MEDICAL MEDICAL AIRWAY EQUIPME EQUIPME PRESSURE DEVICE THERAPEUT 09004 HARDEEP MARTINO IC 5 [facility] TIC/DX INJECTION SUBQ/IM INJECTION J1040 HARDEEP MARTINO 5 [facility] DNISOLONE ACETATE 80 MG INJECTION J0696 HARDEEP MARTINO 5 [facility] NE SODIUM PER 250 MG TUBING A7037 JHOAN JHOAN USED WITH 5 HOME HOME POSITIVE MEDICAL MEDICAL AIRWAY EQUIPME EQUIPME PRESSURE DEVICE HUMDIFIR E0562 JHOAN JHOAN HEATED 5 HOME HOME USED MEDICAL MEDICAL W/POS EQUIPME EQUIPME ARWAY PRESSURE DEVICE FILTER A7038 JHOAN JHOAN DISPBL 5 HOME HOME USED MEDICAL MEDICAL W/POS EQUIPME EQUIPME ARWAY PRESSURE DEVICE FILTER A7039 JHOAN JHOAN NON 5 HOME HOME DISPBL MEDICAL MEDICAL USED EQUIPME EQUIPME W/POS ARWAY PRESS DEVICE FULL FACE A7030 JHOAN JHOAN MASK 5 HOME HOME USED MEDICAL MEDICAL W/POS EQUIPME EQUIPME ARWAY PRESS DEVICE EA CONTINUOU E0601 JHOAN JHOAN S 5 HOME HOME POSITIVE MEDICAL MEDICAL AIRWAY EQUIPME EQUIPME PRESSURE DEVICE HEADGEAR A7035 JHOAN JHOAN USED 5 HOME HOME W/POSITIV MEDICAL MEDICAL E AIRWAY EQUIPME EQUIPME PRESSURE DEVICE BASIC 21041 HARDEEP MEIER METABOLIC 5 [facility] PANEL INC INC CALCIUM TOTAL COLLECTIO 99184 HARDEEP MEIER N VENOUS 5 [facility] BLOOD INC INC VENIPUNCT URE ECG 57827 CARDIOVAS JOSE ROUTINE 5 CULAR MAT ECG CONSULTAN W/LEAST TS O 12 LDS I&R ONLY ECG 83356 HARDEEP TIJERINAON ROUTINE 5 [facility] ECG INC INC W/LEAST 12 LDS TRCG ONLY W/O I&R THERAPEUT 71282 HARDEEP FERNANDES IC 5 [facility] TIC/DX INJECTION SUBQ/IM INJECTION J1100 HARDEEP ANTUNEZYMAN 5 [facility] SONE SODIUM PHOSPHATE 1 MG APPL 16655 [place]INA ANTONY MODALITY 5 GAR 1/> AREAS CHIROPRAC TRACTION TIC CENTE MECHANICA L ECG 89105 CARDIOVAS JOSE ROUTINE 5 CULAR MAT ECG CONSULTAN W/LEAST TS O 12 LDS I&R ONLY CHIROPRAC 90524 CLAUDETTEFERMINLUI ANTONY TIC 5 GAR MANIPLTV CHIROPRAC TX TIC CENTE EXTRASPIN AL 1/> REGION CHIROPRAC 54211 [place] ANTONY TIC 5 GAR MANIPULAT CHIROPRAC SASCHA TX TIC CENTE SPINAL 1-2 REGIONS ECG 67319 HARDEEP TIJERINAON ROUTINE 5 [facility] ECG INC INC W/LEAST 12 LDS TRCG ONLY W/O I&R THERAPEUT 96935 CLAUDETTEFERMINLUI ANTONY IC PX 1/> 5 GAR AREAS CHIROPRAC EACH 15 TIC CENTE MIN EXERCISES 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 5 CULAR MAT CARE/DAY CONSULTAN 25 TS O MINUTES INITIAL [address] [facility] 5 CULAR MAT CARE/DAY CONSULTAN 70 TS O MINUTES SBSQ 58165 [facility] NELDA OBSERVATI 5 PHYSICIAN KETAN ON S GROUP CARE/DAY 15 MINUTES CATH PLMT 72824 [facility]AS [facility] L HRT & 5 CULAR MAT ARTS CONSULTAN W/NJX & TS O ANGIO IMG S&I RADIOLOGI 82334 DI Chin 5 MEDICAL [place] EXAMINATI IMAGING ON CHEST ASS SINGLE VIEW FRONTAL ECG 53425 HARDEEP KEITH JR ROUTINE 5 [facility] W/LEAST P 12 LDS I&R ONLY INITIAL 35497 [facility] NELDA OBSERVATI 5 PHYSICIAN KETAN ON S GROUP CARE/DAY 50 MINUTES RADEX 49389 [facility] TRA SPINE 5 [place] LUMBOSACR ORTHOPAED AL 2/3 [facility] VIEWS RADEX 22534 [facility] TRA SPINE 5 [place] LUMBOSA[place] ORTHOPAED AL 2/3 [facility] VIEWS RADEX 99529 [facility] TRA SPINE 5 [place] LUMBOSA[place] ORTHOPAED AL 2/3 [facility] VIEWS POSTERIOR 03907 [facility] TRA 5 [place] NON-SEGME ORTHOPAED NTAL [facility]CS [facility] INSTRUMEN TATION ANESTHESI 98396 ANESTHESI EASTMAN A LUMBAR 5 A ANDERSEN REGION ASSOCIATE NOS S PSC ARTHRODES 72666 [facility] TRA IS 5 [place] POSTERIOR ORTHOPAED ICS PLC INTERBODY LUMBAR LUMBAR 8107 [facility] LUMBOSACR [address] [place] [address] [place] 8162 [facility] REFUSION [address] [place] [address] OF 2-3 VERTEBRAE EXCISION 7770 [facility] [address] [place] [address] FOR GRAFT UNSPECIFI ED SITE EXCISION [address] INTERVERT EBRAL DISC BLOOD 22320 [facility] TYPING 5 N N SEROLOGIC COMMUNTIY COMMUNTIY RH (D) HOSPITA HOSPITA COMPATIBI 56920 [facility] LITY EACH 5 N N UNIT COMMUNTIY COMMUNTIY IMMEDIATE HOSPITA HOSPITA SPIN TECHNIQUE ANTIBODY 48910 [facility] SCREEN 5 N N RBC EACH COMMUNTIY COMMUNTIY SERUM HOSPITA HOSPITA TECHNIQUE BLOOD 74869 [facility] TYPING 5 N N SEROLOGIC COMMUNTIY COMMUNTIY ABO HOSPITA HOSPITA COLLECTIO 78337 [facility] N VENOUS 5 N N BLOOD COMMUNTIY COMMUNTIY VENIPUNCT HOSPITA HOSPITA URE COLLECTIO 84498 [facility] N VENOUS 5 N N BLOOD COMMUNTIY COMMUNTIY VENIPUNCT HOSPITA HOSPITA URE BASIC 26497 [facility] METABOLIC 5 N N PANEL COMMUNTIY COMMUNTIY CALCIUM HOSPITA HOSPITA TOTAL MRI 56818 [facility] TRA SPINAL 5 [place] CANAL ORTHOPAED LUMBAR [facility]CS PLC W/O CONTRAST MATERIAL BLOOD 15525 [facility] COUNT 5 N N COMPLETE COMMUNTIY COMMUNTIY AUTOMATED HOSPITA HOSPITA ECG 85050 [facility] ROUTINE 5 N N ECG COMMUNTIY COMMUNTIY W/LEAST HOSPITA HOSPITA 12 LDS TRCG ONLY W/O I&R RADIOLOGI 21712 [facility] [place] SCALF CANDICE C EXAM 5 RADIOLOGY CHEST 2 VIEWS FRONTAL&L ATERAL RADIOLOGI 65977 HARDEEP MEIER C EXAM 5 [facility] CHEST 2 INC INC VIEWS FRONTAL&L ATERAL THERAPEUT 61461 HARDEEP MEIER IC 5 [facility] PROPHYLAC INC INC TIC/DX INJECTION SUBQ/IM BLOOD 96947 HARDEEP MEIER COUNT 5 [facility] COMPLETE INC INC AUTO&AUTO DIFRNTL WBC IAADI 09907 HARDEEP MEIER INFFLUENZ 5 [facility] A A VIRUS INC INC IAADI 68919 HARDEEP MEIER INFLUENZA 5 [facility] B VIRUS INC INC COMPREHEN 98687 HARDEEP MEIER SIVE 5 [facility] METABOLIC INC INC PANEL PRESSURIZ 44394 HARDEEP MEIER ED/NONPRE 5 [facility] SSURIZED INC INC INHALATIO N TREATMENT DXA BONE 86189 GIORGIO PATEL 5 [place] PET STUDY 1/> SITES AXIAL SKEL RADEX 04981 [facility] TRA SPINE 5 [place] LUMBOSACR ORTHOPAED AL 2/3 [facility] VIEWS PRESSURIZ 71911 HARDEEP MEIER ED/NONPRE 5 [facility] SSURIZED INC INC INHALATIO N TREATMENT THERAPEUT 69732 HARDEEP MEIER IC 5 [facility] PROPHYLAC INC INC TIC/DX INJECTION SUBQ/IM FLUOR 57309 GIORGIO PEMBERTON NEEDLE/CA 5 GANESH HERNANDEZ MD,[facility] SPINE/PAR ASPINAL DX/THER ADDON NJX 34763 GIORGIO [place]ERT[place] DX/THER [address] [facility] EPIDURAL/ SUBARACH LUMBAR/SA CRAL INJECTION J1100 [facility] NELDA 5 PHYSICIAN KETAN DEXAMETHO S GROUP SONE SODIUM PHOSPHATE 1 MG THERAPEUT 45282 [facility] NELDA IC 5 PHYSICIAN KETAN PROPHYLAC S GROUP TIC/DX INJECTION SUBQ/IM NJX 10204 STONE STONE DX/THER [address] [facility] SURGERY SURGERY EPIDURAL/ CENTER CENTER SUBARACH LUMBAR/SA CRAL FLUOR 04012 GIORGIO PEMBERTON NEEDLE/CA 4 GANESH HERNANDEZ MD,[facility] SPINE/PAR ASPINAL DX/THER ADDON SIMPLE 11655 [facility] SHA REPAIR 4 JAVIER SCALP/NEC EMERGENCY K/AX/IVETH PHYS T/TRUNK 2.5CM/< APPLICATI 81130 HARDEEP MEIER ON FINGER 4 [facility] SPLINT INC INC STATIC RADEX 34590 HARDEEP MEIER FINGR 4 [facility] MINIMUM 2 INC INC VIEWS PETE 99713 HARDEEP PINA JR POST-VOID 4 [facility] RESIDUAL P URINE&/BL ADDER CAP URNLS DIP 43752 HARDEEP MEIER 4 [facility] LET RGNT P P NON-AUTO W/O MICRSCP THERAPEUT 85411 [facility] NELDA IC 4 PHYSICIAN KETAN PROPHYLAC S GROUP TIC/DX INJECTION SUBQ/IM INJECTION J1040 [facility] NELDA 4 PHYSICIAN KETAN METHYLPRE S GROUP DNISOLONE ACETATE 80 MG SUSCEPTIB 99861 HARDEEP MEIER LTY STDY 4 [facility] ANTIMICRB INC INC IAL MICRO/AGA R DILUTJ CULTURE 59868 HARDEEP MEIER BCT 4 [facility] ISOL&PRSM INC INC PTV ID ISOLATE EA URINE CULTURE 90080 HARDEEP MEIER BACTERIAL 4 [facility] INC INC QUANTTATI VE COLONY COUNT URINE INJECTION J1040 [facility] NELDA 4 PHYSICIAN KETAN METHYLPRE S GROUP DNISOLONE ACETATE 80 MG THERAPEUT 26238 [facility] IC 4 PHYSICIAN PHYSICIAN PROPHYLAC S GROUP S GROUP TIC/DX INJECTION SUBQ/IM THERAPEUT 20048 [facility] NELDA IC 4 PHYSICIAN KETAN PROPHYLAC S GROUP TIC/DX INJECTION SUBQ/IM INJECTION J1040 [facility] NELDA 4 PHYSICIAN KETAN METHYLPRE S GROUP DNISOLONE ACETATE 80 MG BASIC 23888 HARDEEP MEIER METABOLIC 4 [facility] PANEL INC INC CALCIUM TOTAL DRUG SCR G0434 JEREMÍAS HAM JEREMÍAS HAM NOT 4 CHROMATOG RAPHIC; ANY NUMBER PT ENC RADEX 77813 MARTHA MARTHA HAND 2 4 [place]ENT[place] BRENTON VIEWS RADEX 69218 HARDEEP MEIER HAND 4 [facility] MINIMUM 3 INC INC VIEWS RADEX HIP 22363 CINTRON TRA CINTRON TRA 4 UNILATERA L COMPLETE MINIM[place] [address] ALPHONSE CUNHA 1/> AREAS 4 MAXIMO MAXIMO EACH 15 MIN NEUROMUSC REEDUCA APPL 95282 [facility] MODALITY 4 MAXIMO MAXIMO 1/> AREAS ELEC STIMJ UNATTENDE D CHIROPRAC 17313 [facility]PH[facility] TIC 4 MAXIMO MAXIMO MANIPULAT [place] SPINAL 3-[place] [address] ALPHONSE CUNHA 1/> AREAS 4 MAXIMO MAXIMO EACH 15 MINUTES MASSAGE CHIROPRAC 99282 [facility]PH[facility] TIC 4 MAXIMO MAXIMO MANIPULAT [place] SPINAL 3-[place] [address] ALPHONSE CUNHA 1/> AREAS 4 MAXIMO MAXIMO EACH 15 MINUTES MASSAGE APPL 62384 [facility] MODALITY 4 MAXIMO MAXIMO 1/> AREAS [place] [address] ALPHONSE CUNHA 1/> AREAS 4 MAXIMO MAXIMO EACH 15 MIN NEUROMUSC REEDUCA MRI 79366 CINTRON TRA CINTRON TRA SPINAL 4 CANAL LUMBAR W/O CONTRAST MATERIAL RADEX 67753 CINTRON TRA CINTRON TRA SPINE 4 LUMBOSACR AL 2/3 VIEWS PETE 53675 YOVANI PINA JR POST-VOID 4 DEB DEB ING RESIDUAL URINE&/BL ADDER CAP HEMOGLOBI 82543 HARDEEP MEIER N 4 [facility] GLYCOSYLA [place] [address] HARDEEP MEIER THYROID 4 [facility] STIMULATI [place] [address] HARDEEP MEIER THYROXINE 4 [facility] TOTAL INC INC COMPREHEN 44363 HARDEEP MEIER SIVE 4 [facility] METABOLIC INC INC PANEL LIPID 93564 HARDEEP MEIER PANEL 4 [facility] INC INC BLOOD 45246 HARDEEP WARD LIS COUNT 4 [facility] COMPLETE INC AUTO&AUTO DIFRNTL WBC CULTURE 30972 HARDEEP MEIER BACTERIAL 4 [facility] INC INC QUANTTATI VE COLONY COUNT URINE CUL BACT 15196 HARDEEP MEIER XCPT 4 [facility] URINE INC INC BLOOD/STO OL AEROBIC ISOL IAADI 75701 HARDEEP MEIER INFLUENZA 4 [facility] B VIRUS INC INC IAADI 34616 HARDEEP MEIER INFFLUENZ 4 [facility] [place] [address] HARDEEP MEIER INFUSION [facility] THERAPY/P INC INC ROPHYLAXI S /DX 1ST TO 1 HR INJECTION J2405 HARDEEP MEIER 4 [facility] ONDANSETR INC INC ON HCL PER 1 MG THERAPEUT 71785 HARDEEP MEIER IC 4 [facility] INJECTION INC [place] [address] HARDEEP MEIER STREPTOCO 4 [facility] CCUS INC INC GROUP A RADEX 59867 HARDEEP MEIER SPINE 4 [facility] THORACIC INC INC 2 VIEWS THERAPEUT 66677 HARDEEP MEIER IC 4 [facility] PROPHYLAC INC INC TIC/DX INJECTION SUBQ/IM ANESTHESI 74857 PATSY & Farrukh ROGERS 1 VANDANA ROGERS INTRAORAL PLLC WITH BIOPSY NOS BASIC 24071 [facility] METABOLIC 1 DIAGNOSTI DIAGNOSTI PANEL CS CS CALCIUM TOTAL LIPOPROTE 67240 [facility] IN DIRECT 1 DIAGNOSTI DIAGNOSTI CS CS MEASUREME NT LDL CHOLESTER OL LIPID 98334 [facility] PANEL 1 [place] [address] [facility] THYROID 1 DIAGNOSTI DIAGNOSTI STIMULATI CS CS NG HORMONE TSH APPLICATI 93.54 Jordi STRINGER OF Burt BAKER MD Encounters Encounter Start End Date Code Location Performer Type Date OFFICE 66730 GIORGIO ELIZABETH 7 7 Christy HERNANDEZ VISIT ,PSC 15 MINUTES OFFICE 56906 GIORGIO ELIZABETH 7 7 Christy HERNANDEZ VISIT ,PSC 25 MINUTES HOSPITAL HARDEEP - 7 7 [facility] OUTPATIEN [facility] HOSPITAL HARDEEP - 7 7 [facility] T EMERGENCY [address] [facility] T VISIT HIGH/URGE NT SEVERITY EMERGENCY 76581 DANNY BEE DEPT 7 7 PHYSICIAN VISIT S, PLLC HIGH SEVERITY& THREAT [facility] HARDEEP - 7 7 [facility] OUTPATIEN [facility] T EMERGENCY 52536 DANNY BEE DEPT 7 7 PHYSICIAN VISIT S, PLLC HIGH SEVERITY& THREAT [facility] EMERGENCY [address] HAR[address] [facility] T VISIT HIGH/URGE NT SEVERITY HOSPITAL HARDEEP - 7 7 [facility] OUTPATIEN [facility] OFFICE 94539 [facility] SRIVASTAV GLENN 7 7 PHYSICIAN A T VISIT S GROUP 25 MINUTES OFFICE 73863 GIORGIO ELIZABETH 6 6 DAVID TURNER T VISIT PSC 25 MINUTES HOSPITAL HARDEEP - 6 6 [facility] OUTPATIEN [facility] T EMERGENCY 46762 DANNY RENAE DEPT 6 6 PHYSICIAN U VAMSHI VISIT S, PLLC HIGH SEVERITY& THREAT FUNCJ OFFICE 17647 [facility] JOSE OUTPATIEN 6 6 PHYSICIAN MAT T VISIT S GROUP 25 MINUTES OFFICE 08553 [facility] OUTPATIEN 6 6 PHYSICIAN T VISIT S GROUP 25 MINUTES OFFICE 96467 ALVARES ALVARES OUTPATIEN 6 6 NATIVIDAD HERNANDEZ T VISIT ,PSC 25 MINUTES OFFICE 39140 [facility] CINTRON OUTPATIEN 6 6 T VISIT ORTHOPAED 15 ICS PSC MINUTES OFFICE 22848 ALVARES GANZEL OUTPATIEN 6 6 MIRIAM HERNANDEZ T VISIT ,PSC 25 MINUTES EMERGENCY [id number] HARDEEP ALLEN 6 6 [facility] DEPARTMEN INC T VISIT MODERATE SEVERITY HOSPITAL HARDEEP - 6 6 [facility] OUTPATIEN INC T EMERGENCY 88154 DANNY ANDRADE 6 6 PHYSICIAN JR MATIAS [facility] S, [facility] T VISIT HIGH/URGE NT SEVERITY OFFICE 04532 [facility] CINTRON OUTPATIEN 6 6 T VISIT ORTHOPAED 15 ICS PSC MINUTES OFFICE 69222 JUDAISM SUGAR OUTPATIEN 6 6 HEALTH JAM T NEW 45 MEDICAL MINUTES GROUP OFFICE 42294 [facility] SALLIE OUTPATIEN 6 6 PHYSICIAN ANDERSEN T VISIT S GROUP 15 MINUTES EMERGENCY 45300 DANNY LUTZ DEPT 6 6 PHYSICIAN KETAN VISIT S, [facility] HIGH SEVERITY& THREAT [facility] 6 6 [facility] OUTPATIEN INC T OFFICE 59175 ALVARES ALVARES OUTPATIEN 6 6 NATIVIDAD HERNANDEZ T VISIT ,PSC 25 MINUTES OFFICE 41686 SHAMAR HERZOG OUTPATIEN 6 6 MEDICAL T VISIT SERV 15 FOUNDATIO MINUTES N OFFICE 21386 [facility] SALLIE OUTPATIEN 6 6 PHYSICIAN ANDERSEN T VISIT S GROUP 15 MINUTES HOSPITAL HARDEEP - 6 6 [facility] OUTPATIEN INC T OFFICE 05150 [facility] JOSE OUTPATIEN 6 6 PHYSICIAN MAT T VISIT S GROUP 25 MINUTES HOSPITAL HARDEEP - 6 6 [facility] OUTPATIEN INC T HOSPITAL HARDEEP - 6 6 [facility] OUTPATIEN INC T OFFICE 80550 [facility] JOSE OUTPATIEN 6 6 PHYSICIAN MAT T VISIT S GROUP 25 MINUTES OFFICE 07557 POLO POLO OUTPATIEN 6 6 HUMBERTO HUMBERTO T NEW 20 MINUTES OFFICE 65445 GIORGIO GANPAVAN OUTPATIEN 6 6 DAVID, T VISIT ,PSC 25 MINUTES HOSPITAL HARDEEP - 6 6 [facility] OUTPATIEN INC T OFFICE 31123 [place] SANCHEZ MINO OUTPATIEN 6 6 MEDICAL T NEW 45 SERV MINUTES FOUNDATIO N EMERGENCY 76068 DANNY LUTZ 6 6 PHYSICIAN KETAN DEPARTMEN S, [facility] HIGH/URGE NT SEVERITY [facility]OSP[facility] HAR[facility]EP - 6 6 [facility] OUTPATIEN INC T OFFICE 05245 ADELAIDE LAM MAR CONSULTAT 6 6 ION NEUROSCIE NEW/ESTAB NCES CENT PATIENT 40 MIN OFFICE 11359 [facility] GUNNER OUTPATIEN 6 6 PHYSICIAN KETAN T VISIT S GROUP 15 MINUTES OFFICE 80927 GIORGIO MYERS OUTPATIEN 5 5 DAVID PINEDA T VISIT PSC 25 MINUTES OFFICE 99066 CARDIOVAS JOSE OUTPATIEN 5 5 CULAR MAT T VISIT CONSULTAN 25 TS O MINUTES HOSPITAL HARDEEP - 5 5 [facility] OUTPATIEN INC T EMERGENCY 50100 HARDEEP 5 5 [facility] DEPARTMEN INC T VISIT MODERATE SEVERITY [facility]OSPITAL [facility] - 5 5 [facility] OUTPATIEN INC T EMERGENCY 25019 DANNY SANDHU DEPT 5 5 PHYSICIAN FOR VISIT S, PLLC HIGH SEVERITY& THREAT [facility] HARDEEP - 5 5 [facility] OUTPATIEN INC T OFFICE 73345 HARDEEP MARTINO OUTPATIEN 5 5 [facility] T VISIT HOSPITAL 15 MINUTES HOSPITAL HARDEEP - 5 5 [facility] OUTPATIEN INC T OFFICE 24464 CARDIOVAS JOSE OUTPATIEN 5 5 CULAR MAT T VISIT CONSULTAN 25 TS O MINUTES OFFICE 33227 HARDEEP FERNANDES OUTPATIEN 5 5 [facility] T VISIT [facility] 15 MINUTES OFFICE 44477 CARDIOVAS JOSE OUTPATIEN 5 5 CULAR MAT T VISIT CONSULTAN 25 TS O MINUTES OFFICE 81312 [place] ANTNOY OUTPATIEN 5 5 [facility] T VISIT [facility] 15 [facility] HAR[facility]EP - 5 5 [facility] OUTPATIEN INC [facility] HARDEEP [facility] 5 5 [facility] OUTPATIEN INC T EMERGENCY 00033 DANNY CHENG 5 5 PHYSICIAN EMMY GUILLERMOMEN S, [facility] T VISIT HIGH/URGE NT SEVERITY OFFICE 81133 HARDEEP MARTINO OUTPATIEN 5 5 [facility] VISIT [facility] 15 MINUTES [facility] [place] [address] [facility] - 5 5 N OUTPATIEN COMMUNTIY T [facility] 5 5 N OUTPATIEN COMMUNTIY T H[facility]PFORM[facility]LY [facility] EMERGENCY 66834 [facility] 5 5 [facility] DEPARTMEN [facility] T VISIT MODERATE SEVERITY [facility] - 5 5 [facility] OUTPATIEN INC T OFFICE 09681 [facility] [place] 5 5 [place] T VISIT [facility] MINUTES HOSP[facility] - 5 5 [facility] OUTPATIEN INC T EMERGENCY 70554 [facility] 5 5 [facility] DEPARTMEN INC T VISIT LOW/MODER SEVERITY EMERGENCY 80590 [facility] DILLON 5 5 [facility] T VISIT P MODERATE SEVERITY OFFICE 14281 [facility] NELDA OUTPATIEN 5 5 PHYSICIAN KETAN T VISIT S GROUP 10 MINUTES OFFICE 72596 [facility] FRYMAN OUTPATIEN 5 5 PHYSICIAN EUG T VISIT S GROUP 15 MINUTES EMERGENCY 65939 [facility] 4 4 [facility] HIGH/URGE NT SEVERITY EMERGENCY 73477 [facility] 4 4 [facility] EMERGENCY T VISIT PHYS MODERATE SEVERITY HOSPITAL [facility] - 4 4 [facility] OUTPATIEN INC T OFFICE 71955 [facility] NELDA OUTPATIEN 4 4 PHYSICIAN KETAN T VISIT S GROUP 15 MINUTES HOSPITAL [facility] - 4 4 [facility] OUTPATIEN INC T HOSPITAL [facility] - 4 4 [facility] OUTPATIEN INC T OFFICE 86738 [facility] OUTPATIEN 4 4 PHYSICIAN T VISIT S GROUP 15 MINUTES OFFICE 99183 [facility] OUTPATIEN 4 4 T NEW 45 MINUTES EMERGENCY 45753 [facility] NELDA 4 4 [facility] SE[facility] - 4 4 [facility] OUTPATI[facility] INC T EMERGENCY 03561 [facility] 4 [facility]/MODER SEVERITY OFFICE 11585 [facility] OUTPATIEN 4 4 PHYSICIAN T NEW 20 S GROUP MINUTES OFFICE 27057 [facility] OUTPATIEN 4 4 T VISIT 25 MINUTES OFFICE 53264 [facility] OUT[facility] 4 4 MAXIMO MAXIMO T NEW 30 MINUTES OFFICE 91653 [facility] TRA CONSULTAT 4 4 ION NEW/ESTAB PATIENT 40 MIN OFFICE 25293 YOVANI JR YOVANI JR OUTPATIEN 4 4 DEB DEB T NEW 20 MINUTES OFFICE 20528 NELDA LUTZ OUTPATIEN 4 4 KETAN KETAN T VISIT 15 MINUTES OFFICE 07981 NELDA WHARTONEY OUTPATIEN 4 4 KETAN KETAN T VISIT 10 MINUTES HOSPITAL [facility] - 4 4 [facility] OUTPATIEN INC T Emergency ELTON Guidry MD (ER) 4 14:35 4 16:35 [facility] - 4 4 [facility] OUTPATIEN INC T EMERGENCY 59096 [facility] 4 4 [facility] DEPARTMEN INC T VISIT MODERATE SEVERITY Emergency ELTON CHAVEZ DO (ER) 4 17:57 4 18:15 [facility] EMERGENCY 53289 CHERY CHAVEZ MIRIAM 4 4 EMERGENCY DEPARTMEN SERVICES T VISIT HIGH/URGE NT SEVERITY HOSPITAL [facility] - 4 4 [facility] OUTPATIEN INC T EMERGENCY 28544 [facility] 4 4 [facility] DEPARTMEN INC T VISIT LOW/MODER SEVERITY Emergency ELTON Guidry MD (ER) 3 20:18 3 23:06 [facility] Emergency ELTON GRIGGS (ER) 3 22:44 3 23:11 [facility] Emergency ELTON Jackson MD (ER) 3 14:38 3 16:29 [facility]. Emergency ELTON [place] (ER) 3 18:08 3 19:12 [facility] Emergency ELTON ZIMMERMAN MD (ER) 3 13:32 3 15:32 [facility] Emergency ELTON LUCIANO (ER) 3 12:19 3 13:54 [facility] A OFFICE 69124 JOSE GARCIA OUTPATIEN 1 1 CANDICE CANDICE T VISIT 15 MINUTES
--- OUTSIDE RECORDS SUMMARY | 2017-03-17 07:31 | External Medical Summary Rpt ---
Author Author , KEENAN HUSSEIN Address Unknown Phone [email or web address] Care Team Providers Care Bung Sewer Name Role Phone ALPHONSE MAXIMO, Unavailable Unavailable ALPHONSE MAXIMO ALPHONSE MAXIMO, Unavailable Unavailable ALPHONSE MAXIMO [facility] Unavailable Unavailable [facility], [facility] GIORGIO HENSON ALVARES Unavailable Unavailable [facility] GIORGIO URIAS Unavailable Unavailable [facility] HERNANDEZ MD Unavailable Unavailable PSC, GIORGIO HERNANDEZ MD PSC GIORGIO HERNANDEZ, Unavailable Unavailable ,PSC, GIORGIO HERNANDEZ MD,PSC [facility] Unavailable Unavailable MEDICAL GROUP, [facility] EASTMAN ANDERSEN, EASTMAN Unavailable Unavailable ANDERSEN BEINEKE, BEINEKE Unavailable Unavailable BESSON MIRIAM, BESSON Unavailable Unavailable MIRIAM [facility] Unavailable Unavailable [facility], [facility] ABRAMS ALL, ABRAMS ALL Unavailable Unavailable [facility] Unavailable Unavailable [facility], [facility] [place] Un[facility], [facility] CRAGER JAM, CRAGER Unavailable [...] Unavailable GANZEL MIRIAM, GANZEL Unavailable Unavailable MIRIAM [facility] Unavailable Unavailable [facility], [facility] Unavailable Unavailable INC, [facility] Unavailable Unavailable HOSPITAL, [facility] Unavailable Unavailable HOSPITAL P, [facility] P [facility], Unavailable Unavailable [facility] BEE, BEE Unavailable Unavailable CINTRON, CINTRON Unavailable Unavailable CINTRON TRA, CINTRON TRA Unavailable Unavailable Jordi Dallas MD, Unavailable Unavailable Jordi Dallas MD [facility] Unavailable Unavailable [facility], [facility] ED LIS, ED LIS [...] Unavailable CANDICE [facility] Unavailable Unavailable [id number] # [id number], [facility] [id number] # [phone] GARCIA MARTHA, GARCIA Unavailable Unavailable MARTHA SCALF CANDICE, SCALF CANDICE Unavailable Unavailable JOSE MAT, Unavailable Unavailable JOSE MAT JACKSON BENNETT, JACKSON BENNETT Unavailable Unavailable [facility] Unavailable Unavailable [facility], [facility] Unavailable Unavailable [facility], [facility] SOTINGEANU VAMSHI, Unavailable Unavailable SOT[facility]U V[facility], Unavailable Unavailable [facility], Unavailable Unavailable [facility] Un[facility] Unavailable [facility]ENTER, [facility] Unavailable Unavailable [facility]ENTER, [facility] Jayesh Hernandez MD, Unavailable Unavailable Jayesh Hernandez MD [facility] # Unavailable Unavailable [id number], [facility] # [id number] WALKER FOR, WALKER Unavailable Unavailable FOR SANCHEZ MINO, SANCHEZ MINO Unavailable Unavailable COURTNEY CAMPOS Unavailable Unavailable DAVID PETDAVID Unavailable Unavailable PET YEISER, YEISER Unavailable Unavailable Purpose Continuity of Care Document - 10-31-2010 through 2016 Problems Code Diagnosis DOS Provider Status 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 DEONNA RODRIGUEZ MD,[facility] DEGEN LUMBAR REGION M5416 RADICULOPAT 11-16-2016 GIORGIO HY LUMBAR ORALIA HERNANDEZ MD,[facility] R58201 MCC 11-16-2016 GIORGIO CURRENT USE MAXWELL HERNANDEZ OPIATE ,[facility] ANALGESIC N42753 TENSION-TYP 09-03-2016 MELANI E HEADACHE UNSPECIFIED INTRACTABLE M542 CERVICALGIA 09-03-2016 POLO M9901 SEGMENTAL & 09-03-2016 [facility] SOMATIC DYSFUNCTION CERVICAL REGION M9902 SEGMENTAL & 09-03-2016 [facility] SOMATIC DYSFUNCTION THORACIC REGION G4733 OBSTRUCTIVE 08-19-2016 [facility]A ADULT MEDICAL PEDIATRIC EQUIPME E785 HYPERLIPIDE 08-14-2016 [facility] UNSPECIFIED INC I10 ESSENTIAL 08-14-2016 [facility] HYPERTENSIO INC N I119 HYPERTENSIV 07-30-2016 [facility] Clarke HEART PHYSICIANS, DISEASE PLLC WITHOUT HEART FAILURE I209 ANGINA 07-30-2016 DANNY PECTORIS PHYSICIANS, UNSPECIFIED [facility] N66948 ASHD EEK 07-30-2016 [facility] P ANGINA PECTORIS R079 CHEST PAIN 07-30-2016 [place] UNSPECIFIED [facility] IM[facility]ING ASS R0789 OTHER CHEST 07-29-2016 DANNY PAIN PHYSICIANS, [facility] I2510 ASHTalia EEK 07-16-2016 [facility] CORONARY PHYSICIANS ARTERY W/O GROUP ANGINA PECTORIS 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 R55 SYNCOPE AND 05-07-2016 [facility] COLLAPSE PHYSICIANS GROUP E669 OBESITY 04-28-2016 [facility] UNSPECIFIED PHYSICIANS GROUP E876 HYPOKALEMIA 04-28-2016 DANNY PHYSICIANS, [facility] I708 ATHEROSCLER 04-28-2016 [facility] OSIS OF PHYSICIANS OTHER GROUP ARTERIES N182 CHRONIC 04-28-2016 [facility] KIDNEY PHYSICIANS DISEASE GROUP STAGE 2 MILD R0602 SHORTNESS 04-28-2016 [facility] OF BREATH PHYSICIANS GROUP J029 ACUTE 03-26-2016 [facility] PHARYNGITIS PHYSICIANS GROUP UNSPECIFIED R109 UNSPECIFIED 03-26-2016 [facility] ABDOMINAL PHYSICIANS PAIN GROUP R112 NAUSEA WITH 03-26-2016 [facility] VOMITING PHYSICIANS UNSPECIFIED GROUP M545 LOW BACK 01-30-2016 [facility] PSC M4806 SPINAL 01-20-2016 GIORGIO STENOSIS DAVID LUMBAR ,[facility] REGION J4551 SEVERE 01-04-2016 DANNY PERSISTENT PHYSICIANS, ASTHMA WITH PLLC ACUTE EXACERBATIO N R05 COUGH 01-04-2016 [facility] R42 DIZZINESS 12-31-2015 [facility] Z6835 BODY MASS 12-31-2015 [facility] INDEX BMI HEALTH 35.0-35.9 MEDICAL ADULT GROUP J40 BRONCHITIS 12-28-2015 [facility] NOT PHYSICIANS SPECIFIED GROUP ACUTE OR CHRONIC R0600 DYSPNEA 11-26-2015 [facility] UNSPECIFIED [facility] INC N179 ACUTE 11-11-2015 [place] [facility] UNSPECIFIED I1310 HTN HEART & 10-15-2015 [facility] CKD W/O HF PHYSICIANS W/STAGE GROUP 1-4 CKD/UNS CKD R04225 ASHD EEK 10-15-2015 [facility] COR ART PHYSICIANS W/OTH FORMS GROUP ANGINA PECTORIS N183 CHRONIC 10-15-2015 [facility] KIDNEY PHYSICIANS DISEASE GROUP STAGE 3 MODERATE R609 EDEMA 10-15-2015 [facility] UNSPECIFIED PHYSICIANS GROUP N19 UNSPECIFIED 10-13-2015 [facility] KIDNEY [facility] FAILURE INC Z0389 ENCOUNTER 10-03-2015 [place] OBSERV OT MEDICAL SUSPCT DZ & IMAGING ASS COND RULED OUT I208 OTHER FORMS 10-01-2015 [facility] OF ANGINA PHYSICIANS PECTORIS GROUP F85315 SPONDYLOSIS 09-16-2015 GIORGIO W/O DAVID MYELOPATH/R ,[facility] ADICULOPATH Y LUMB RGN I361 NONRHEUMATI 09-02-2015 [place] MED[facility] C TRICUSPID SERV VALVE FOUNDATION INSUFFICIEN CY M519 UNS THOR 08-20-2015 [facility] THORACOLUMB MEM HOSP AR INC LUMBOSACRAL IV DISC D/O J069 ACUTE UPPER 08-11-2015 [facility] PHYSICIANS, RESPIRATORY PLLC INFECTION UNSPECIFIED A50714 PAIN IN 08-11-2015 [place] LEFT HIP MEDICAL IMAGING ASS W37922 OTHER LONG 08-11-2015 [facility] TERM PHYSICIANS CURRENT GROUP DRUG THERAPY I425 OTHER 06-24-2015 [place] [facility] CARDIOMYOPA THY J209 ACUTE 06-18-2015 [facility] BRONCHITIS PHYSICIANS UNSPECIFIED GROUP R0609 OTHER FORMS 04-23-2015 [facility] OF DYSPNEA MEM HOSP INC I422 OTHER 04-02-2015 [facility] HYPERTROPHI MEM HOSP C INC CARDIOMYOPA THY 82237 OBSTRUCTIVE 02-28-2015 [facility] APNEA MEDICAL EQUIPME 2724 OTHER AND 02-26-2015 [facility] UNSPECIFIED MEM HOS[facility] INC HYPERLIPIDE CLEVE 4019 UNSPECIFIED 02-26-2015 [facility] ESSENTIAL MEM HOSP HYPERTENSIO INC N 92135 UNSPEC HTN 02-26-2015 [facility] HE[facility] LAR DISEASE CONSULTANTS WITHOUT O HEART FAIL 4254 OTHER 02-26-2015 [facility] CARDIOMYOPA INC KATARINA 21601 OTHER 02-26-2015 [facility] DYSPNEA AND LAR CONSULTANTS RESPIRATORY O ABNORMALITI ES 4660 ACUTE 02-15-2015 [facility] 10304 STIFFNESS 02-12-2015 [place] OF JOINT CHIROPRACTI NEC C CENTE SHOULDER REGION 7234 BRACHIAL 02-12-2015 [place] NEURITIS OR CHIROPRACTI C CENTE RADICULITIS NOS 7282 MUSCULAR 02-12-2015 [place] WASTING AND CHIROPRACTI DISUSE C CENTE ATROPHY NEC 7283 OTHER 02-12-2015 [place] SPECIFIC CHIROPRACTI MUSCLE C CENTE DISORDERS 7393 NONALLOPATH 02-12-2015 [place] IC LESION CHIROPRACTI OF LUMBAR C CENTE REGION NEC 59666 NONSPECIFIC 02-12-2015 [facility] ABNORMAL [facility] ELECTROCARD INC IOGRAM 60067 UNSPECIFIED 02-06-2015 [facility] APNEA INC 82473 COR 01-30-2015 [facility] ATHEROSLERO LAR UNSPEC CONSULTANTS TYPE VESSEL O EEK/WILBERT T 63808 CHEST PAIN 01-30-2015 [facility] UNSPECIFIED LAR CONSULTANTS O 73401 OBESITY, 01-29-2015 [facility] UNSPECIFIED LAR CONSULTANTS O 4111 INTERMEDIAT 01-29-2015 [facility] E CORONARY LAR SYNDROME CONSULTANTS O 4011 ESSENTIAL 01-28-2015 [facility] HYPERTENSIO PHYSICIANS N, BENIGN GROUP 98094 CORONARY 01-28-2015 [facility] P CORONARY ARTERY V5869 LONG-TERM 01-28-2015 [facility] (CURRENT) PHYSICIANS USE OF GROUP OTHER MEDICATIONS 69655 DEGEN 01-10-2015 [facility] [place] LUMBAR/LUMB ORTHOPAEDIC OSACRAL S PLC INTERVERTEB RAL DISC 4619 ACUTE 11-27-2014 [facility] SINUSITIS, [facility] UNSPECIFIED HOSPITAL 3384 CHRONIC 10-16-2014 [facility] SYNDROME 63317 ASTHMA, 10-16-2014 [facility] , UNSPECIFIED STATUS 61016 UNSPECIFIED 10-16-2014 [facility] ARTHROPATHY SITE UNSPECIFIED 77724 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 35700 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 S PLC LUMBAR REGION 43026 SPINAL STEN 10-16-2014 [facility] LUMB REG ORTHOPAEDIC W/O S PLC NEUROGENIC CLAUDICATIO N 7245 UNSPECIFIED 10-16-2014 [facility] 7295 PAIN IN 10-16-2014 [facility] TISSUES OF [facility] LIMB V1204 PERSONAL HX 10-16-2014 [facility] METHICILLIN RESIST STAPH AUREUS V7283 OTHER 10-09-2014 [facility] SPECIFIED COMM[facility]TI[facility] PRE-OPERATI HOSPITA VE EXAMINATION V7286 ENCOUNTER 10-09-2014 [facility] FOR BLOOD COMMUNTIY TYPING HOSPITA 7242 LUMBAGO 10-02-2014 [facility] ORTHOPAEDIC S PLC 99413 ASTHMA 10-01-2014 [place] UNSPECIFIED MEDICAL WITH IMAGING ASS EXACERBATIO N 34828 FEVER 10-01-2014 [place] UNSPECIFIED MEDICAL IMAGING ASS V8281 SPECIAL 09-20-2014 [facility] SCREENING FOR OSTEOPOROSI S 7244 THORACIC/RON 08-22-[address] MBOSACRAL SURGERY NEURITIS/RA CENTER DICULITIS UNSPEC 4611 ACUTE 06-19-2014 [facility] FRONTAL PHYSICIANS SINUSITIS GROUP 91965 CLOS 04-19-2014 [facility] FRACTURE MEDICAL MID/PROXIMA IMAGING ASS L PHALANX/PHA LANG HAND 27184 OPEN 04-19-2014 [facility] FRACTURE N EMERGENCY MID/PROXIMA PHYS L PHALANX/PHA LANG HAND 8830 OPEN WOUND 04-19-2014 [facility] FINGER N EMERGENCY WITHOUT PHYS MENTION COMPLICATIO N E918 CAUGHT 04-19-2014 [facility] ACCIDENTALL N EMERGENCY Y IN OR PHYS BETWEEN OBJECTS 08450 HYPERTROPHY 04-12-2014 [facility] PROSTATE [facility] W/O UR [facility] HOSPITAL P & OTH LUTS 6011 CHRONIC 04-12-2014 [facility] PROSTATITIS [facility] P 44140 SLOWING OF 04-12-2014 [facility] URINARY [facility] HOSPITAL P 490 BRONCHITIS 04-05-2014 [facility] NOT PHYSICIANS SPECIFIED GROUP ACUTE OR CHRONIC 5990 URINARY 03-08-2014 [facility] TRACT [facility] INFECTION INC SITE NOT SPECIFIED 7213 LUMBOSACRAL 11-07-2013 JEREMÍAS JERNIGAN SPONDYLOSIS WITHOUT MYELOPATHY 93292 EFFUSION OF 10-31-2013 [facility]TH[facility] HAND JOINT [place] 99764 PAIN IN 10-31-2013 MARTHA JOINT, HAND [place] 47505 SPRAIN AND 10-31-2013 [facility] STRAIN OF MEM HOSP UNSPECIFIED INC SITE OF HAND E9288 OTHER 10-31-2013 [facility] ACCIDENT 9182 SUPERFICIAL 10-23-2013 [facility] INJURY OF PHYSICIANS CONJUNCTIVA GROUP 8471 THORACIC 09-29-2013 [facility] SPRAIN AND MAXIMO STRAIN 11249 HYPERPLASIA 09-07-2013 YOVANI MORTENSEN PROSTATE DEB UNS [...] & S IN TOOTH ROGERS, ERUPTION PLLC 70666 OTHER 01-08-2011 [facility] [id number] [facility] Allergies, Adverse Reactions, Alerts Type Drug Allergy [...] 00 1- 2- 00 06 TO ve MA 51 20 20 07 WN IL 70 17 17 34 3 87 PH 40 AR MA MG CY TA OF BL ET CY NT HI AN A BU 68 08 09 60 30 00 HO Ac MA 00 -2 -2 .0 00 ME ti [...] 07 08 60 30 00 HO Ac MA 00 -0 -1 .0 00 ME ti [...] 10 6- 1- 00 06 TO ve MA 27 20 20 07 WN IL 10 [...] 05 06 60 30 00 HO Ac MA 00 -1 -1 .0 00 ME ti [...] 10 2- 6- 00 06 TO ve MA 27 20 20 07 WN IL 10 [...] 04 05 60 30 00 HO Ac MA 00 -1 -1 .0 00 ME ti [...] 10 2- 2- 00 06 TO ve MA 27 20 20 07 WN IL 10 [...] 20 01 WN 50 17 17 30 HENDRESON 1 34 PH LF AR MA ER [...] 50 3- 4- 00 06 TO ve MA 64 20 20 07 WN IL 01 [...] 02 03 60 30 00 HO Ac MA 00 -0 -1 .0 00 ME ti [...] ve LO 19 20 20 07 WN MA 70 17 17 28 AM 3 59 [...] 50 2- 7- 00 06 TO ve MA 64 20 20 07 WN IL 01 [...] ve LO 19 20 20 07 WN MA 70 16 17 28 AM 3 59 [...] 50 3- 3- 00 06 TO ve MA 64 20 20 07 WN IL 01 [...] ti 4 ve MG /2 ML AL MA 00 01 0 No ED 05 -2 [...] TH 70 -0 YL 30 8- Lo MA 05 20 ng ED 10 14 er NI 1 SO Ac LO ti NE ve 80 MG /M L VL CY 51 01 0 No CL 07 -0 OB 90 8- Lo EN 64 20 ng ZA 42 14 er MA 0 IN Ac E ti 10 ve [...] 64 20 ng ZA 42 13 er MA 0 IN Ac E ti 10 ve [...] 41 20 ng RA 40 13 er [place] 1 DE Ac ti 10 ve MG [...] ve MG /M L SY RN G MA 55 05 0 No OC 39 -2 [...] -3 -2 .0 L- 22 KE ti MA 80 1- 6- 00 MA 09 [place] ve OL 50 20 20 RT 6 [...] -0 -0 .0 L- 29 SH ti MA 50 4- 4- 00 MA 60 ER ve OL 19 20 20 RT 5 OL 05 11 11 RI 9 PH CH TA AR AR RT MA D RA CY TE # 50 10 05 MG 91 TA B BI 00 05 07 3 60 30 WA 71 MC Ac SO 37 -3 -3 .0 L- 22 KE ti MA 80 1- 0- 00 MA 09 [place] ve OL 50 20 20 RT 6 E OL 30 11 11 JR -H [address] AR WI Z MA LL 5- CY IA 6. # M 25 F 10 MG 05 91 TA B BI 00 05 07 3 60 30 WA 71 MC Ac SO 37 -3 -0 .0 L- 22 KE ti MA 80 1- 3- 00 MA 09 [place] ve OL 50 20 20 RT 6 E OL 30 11 11 JR -H [address] AR WI Z MA LL 5- CY IA 6. # M 25 F 10 MG 05 91 TA B BI 00 05 06 3 60 30 WA 71 MC Ac SO 37 -3 -0 .0 L- 22 KE ti MA 80 1- 6- 00 MA 09 [place] ve OL 50 20 20 RT 6 [...] [place] [address] GIORGIO MYERS GLUTAMYLT 7 BOZENA HERNANDEZ MD,PSC GAMMA COMPREHEN 49363 GIORGIO MYERS SIVE 7 NATACHA HERNANDEZ MD,PSC PANEL BILIRUBIN 46723 GIORGIO MYERS DIRECT 7 MD DAVID,[place] [address] GIORGIO MYERS PHOSPHORU 7 Alexis HERNANDEZ MD,PSC INORGANIC BLOOD 51385 GIORGIO MYERS COUNT 7 MILTON HERNANDEZ MD,PSC AUTO&AUTO DIFRNTL WBC CHIROPRAC 67228 MELANI FERNANDEZON TIC 7 MANIPULAT [place] SPINAL 1-2 REGIONS FACE MASK A7031 [facility] STAPLES 7 HOME HOME INTERFACE MEDICAL MEDICAL REPLCMT EQUIPME EQUIPME FULL FACE MASK EA BASIC 50369 [facility] METABOLIC 7 [facility] PANEL INC INC CALCIUM TOTAL COLLECTIO 50014 [facility] N VENOUS 7 [facility] BLOOD INC INC VENIPUNCT URE HEPATIC 03157 [facility] FUNCTION 7 [facility] PANEL INC INC LIPID 74852 [facility] PANEL 7 [facility] INC INC ECG 58671 DANNY BEE ROUTINE 7 PHYSICIAN ECG S, PLLC W/LEAST 12 LDS I&R ONLY CREATINE 92210 [facility] KINASE MB 7 [facility] FRACTION INC INC ONLY COMPREHEN 10289 [facility] SIVE 7 [facility] METABOLIC INC INC PANEL CREATINE 07934 [facility] KINASE 7 [facility] [place] [address] [facility] TROPONIN 7 [facility] QUANTITAT INC INC SAS[place] CATH PLMT 97635 [facility] L HRT & 7 [facility] ARTS INC INC W/NJX & ANGIO IMG S&I BLOOD 34375 [facility] COUNT 7 [facility] COMPLETE INC INC AUTO&AUTO DIFRNTL WBC CATHETER C1725 [facility] TRANSLUMI 7 [facility] NAL INC INC ANGIOPLAS TY NON-LASER GUIDE C1769 [facility] WIRE 7 [facility] INC INC RADIOLOGI 20911 [facility] C EXAM 7 [facility] CHEST 2 INC INC VIEWS FRONTAL&L ATERAL RADIOLOGI 31857 [facility] C EXAM 7 MEDICAL MEDICAL CHEST 2 IMAGING IMAGING VIEWS ASS ASS FRONTAL&L ATERAL BLOOD 76362 [facility] COUNT 7 [facility] COMPLETE INC INC AUTO&AUTO DIFRNTL WBC THER 95718 [facility] PROPH/DX 7 [facility] NJX IV INC INC PUSH SINGLE/1S T SBST/DRUG ECG 75179 [facility] ROUTINE 7 [facility] ECG INC INC W/LEAST 12 LDS TRCG ONLY W/O I&[place] [address] [facility] MEIER TROPONIN 7 [facility] QUANTITAT INC INC SASCHA CREATINE 97780 [facility] MEIER KINASE 7 [facility] TOTAL INC INC COMPREHEN 87056 [facility] MEIER SIVE 7 [facility] METABOLIC INC INC PANEL CREATINE 76805 [facility] MEIER KINASE MB 7 [facility] FRACTION INC INC ONLY ECG 14989 DANNY BEE ROUTINE 7 PHYSICIAN ECG S, PLLC W/LEAST 12 LDS I&R ONLY ECG 40641 [facility]IER ROUTINE 7 [facility] ECG INC INC W/LEAST 12 LDS TRCG ONLY W/O I&R DRUG TEST G0479 IGORGIO MYERS 6 DAVID TURNER PRESUMP;I PSC NSTRUMENT ED CHEMISTRY ANLYZER FILTER A7038 [facility] STAPLES DISPBL 6 HOME HOME USED MEDICAL MEDICAL W/POS EQUIPME EQUIPME ARWAY PRESSURE DEVICE FACE MASK A7031 [facility] STAPLES 6 HOME HOME INTERFACE MEDICAL MEDICAL REPLCMT EQUIPME EQUIPME FULL FACE MASK EA IMPLANTAT 69578 [facility] ION 6 [facility] PT-ACTIVA INC INC OZIEL CARDIAC EVENT RECORDER EVENT C1764 [facility]IER RECORDER 6 [facility] CARDIAC INC INC RADIOLOGI 38094 [place] ALIZA ALL C 6 MEDICAL EXAMINATI IMAGING ON CHEST ASS SINGLE VIEW FRONTAL CT THORAX 66006 [facility] ALL 6 MEDICAL W/CONTRAS IMAGING T ASS MATERIAL ECG 95654 [facility] KEITH JR ROUTINE 6 [facility] W/LEAST P 12 LDS I&[place] [address] GIORGIO ALVARES GLUTAMYLT 6 [place] HERNANDEZ MD,PSC GAMMA COMPREHEN 84791 GIORGIO ALVARES SIVE 6 [place] [address] GIORGIO ALVARES PHOSPHORU 6 [place] HERNANDEZ MD,PSC INORGANIC BILIRUBIN 36304 GIORGIO ALVARES DIRECT 6 [place] HERNANDEZ MD,[facility] BLOOD 90435 ALVARES ALVARES COUNT 6 [place] HERNANDEZ MD,PSC [...] W/POS [place]QUIPME [place] NJX 41004 [place] [place] ANES&/STR [address] D W/IMG SURGERY SURGERY [facility] EDRL LMBR/SAC 1 LVL NJX 24388 [facility] ANES&/STR [address] D W/IMG SURGERY SUR[facility]ERY [facility] EDRL LMBR/SAC EA LV CHIROPRAC 28954 POLO POLO TIC 6 [place] HUM[place]ERT[place] MANIPULAT [place] SPINAL 1-2 REGIONS CHIROPRAC 85939 POLO POLO TIC 6 [place] HUM[place]ERT[place] MANIPULAT SASCHA TX SPINAL 1-2 REGIONS MRI [address] [facility] SPINAL 6 CANAL ORTHOPAED LUMBAR ICS PSC W/O CONTRAST MATERIAL DRUG TEST G0479 GIORGIO MYERS 6 MIRIAM HERNANDEZ PRESUMP;I ,PSC NSTRUMENT ED CHEMISTRY ANLYZER CUL BACT 45624 [facility]IER XCPT 6 [facility] URINE INC INC BLOOD/STO OL AEROBIC ISOL RADIOLOGI 05137 [facility] C EXAM 6 MEDICAL [place] CHEST 2 IMAGING VIEWS ASS FRONTAL&L ATERAL BLOOD 57278 [facility] MEIER COUNT 6 [facility] COMPLETE INC INC AUTO&AUTO DIFRNTL WBC PRESSURIZ 80394 [facility] ALLEN ED/NONPRE 6 [facility] [place] [address] [facility] INFUSION 6 [facility] THERAPY/P INC INC ROPHYLAXI S /DX 1ST TO 1 [place] [address] [facility] ALLEN STREPTOCO 6 [facility] CCUS INC GROUP A THERAPEUT 25761 [facility] IC 6 [facility] INJECTION INC INC IV PUSH EACH NEW DRUG RADEX [address] [facility] SPINE 6 LUMBOSACR ORTHOPAED AL 2/3 ICS PSC VIEWS ECG 68671 [facility] ROUTINE 6 [facility] ECG MEDICAL W/LEAST GROUP 12 LDS W/I&R RADIOLOGI 70254 [facility] C EXAM 6 MEDICAL CHEST 2 IMAGING VIEWS ASS FRONTAL&L ATERAL CONTINUOU E0601 JHO[facility] STAPLES S 6 HOME HOME POSITIVE MEDICAL MEDICAL AIRWAY EQUIPME EQUIPME PRESSURE DEVICE ECG 66354 [facility] TRACY ROUTINE 6 [facility] W/LEAST P 12 LDS I&R ONLY RADIOLOGI 83807 [facility] C EXAM 6 MEDICAL [place] CHEST 2 IMAGING VIEWS ASS FRONTAL&L ATERAL CHIROPRAC 09683 MELANI POLO TIC 6 [place] H[place]ERT[place] MANIPULAT SAS[place] SPINAL 1-2 REGIONS OUTPATIEN 08747 [facility] MEIER T CARDIAC 6 [facility] REHAB INC INC W/CONT ECG MONITORIN G COMPREHEN 20611 GIORGIO ALVARES SIVVince 6 [facility] [address] GIORGIO ALVARES GLUTAMYLT 6 [facility] HERNANDEZ MD,PSC GAMMA BILIRUBIN 03366 GIORGIO ALVARES DIRECT 6 [place] MD,[place] [address] GIORGIO ALVARES PHOSPHORU 6 [facility] HERNANDEZ MD,PSC INORGANIC BLOOD 38225 GIORGIO ALVARES COUNT 6 [place] HERNANDEZ MD,PSC AUTO&AUTO DIFRNTL WBC THERAPEUT 27969 [facility] SALLIE IC 6 PHYSICIAN ANDERSEN PROPHYLAC S GROUP TIC/DX INJECTION SUBQ/IM INJECTION J0696 [facility] SALLIE 6 PHYSICIAN ANDERSEN CEFTRIAXO S GROUP NE SODIUM PER 250 MG INJECTION J1040 [facility] SALLIE 6 PHYSICIAN ANDERSEN METHYLPRE S GROUP DNISOLONE ACETATE 80 MG BLOOD 07662 HARDEEP MEIER COUNT 6 [facility] COMPLETE INC INC AUTO&AUTO DIFRNTL WBC PROTEIN 84191 HARDEEP MEIER XCPT 6 [facility] REFRACTOM INC INC ETRY SERUM PLASMA/WH L BLD COLLECTIO 15766 HARDEEP MEIER N VENOUS 6 [facility] BLOOD INC INC VENIPUNCT URE CREATININ 96420 HARDEEP MEIER E OTHER 6 [facility] SOURCE INC INC RENAL 75951 HARDEEP MEIER FUNCTION 6 [facility] PANEL INC INC URNLS DIP 46281 HARDEEP MEIER 6 [facility] STICK/TAB INC INC LET REAGENT AUTO MICROSCOP Y CONTINUOU E0601 JHOAN STAPLES S 6 HOME [...] MEDICAL AIRWAY EQUIPME EQUIPME PRESSURE DEVICE CREATININ 97139 HARDEEP MEIER E OTHER 6 [facility] SOURCE INC INC COMPREHEN 00480 HARDEEP HARDEEP SIVE 6 [facility] METABOLIC INC INC PANEL COLLECTIO 09728 HARDEEP HARDEEP N VENOUS 6 [facility] BLOOD INC INC VENIPUNCT URE NON-INVAS 76264 [facility] ALL 6 MEDICAL PHYSIOLOG IMAGING IC STD ASS EXTREMITY ART 2 LEVEL CHIROPRAC 03710 MELANI POLO TIC 6 [facility] MANIP[place]AT [place] SPINAL 1-2 REGIONS RADEX 19510 MELANI FERNANDEZON SPINE 6 [facility] CERVICAL 2 OR 3 VIEWS DRUG TEST G0479 GIORGIO MYERS 6 DAVID, PRESUMP;I ,PSC NSTRUMENT ED CHEMISTRY ANLYZER ECHO 89523 SHAMAR JACKSON BENNETT TTC R-T 6 MEDICAL 2D SERV W/WOM-MOD FOUNDATIO E COMPL N SPEC&COLR D BASIC 43384 HARDEEP MEIER METABOLIC 6 [facility] PANEL INC INC CALCIUM TOTAL DRUG TST G0477 HARDEEP MEIER PRESUMP;C 6 [facility] PBL BEING INC INC READ DC OPT OBV ONLY OBSERVATI 38394 [facility] FRYMAN ON CARE 6 PHYSICIAN EUG DISCHARGE S GROUP MANAGEMEN T SBSQ 01002 [facility] FRYMAN OBSERVATI 6 PHYSICIAN EUG ON S GROUP CARE/DAY 15 MINUTES RADEX HIP 70809 [facility] ALL 6 MEDICAL UNILATERA IMAGING L WITH ASS PELVIS 1 VIEW RADIOLOGI [address] [facility] ALL C EXAM 6 MEDICAL CHEST 2 IMAGING VIEWS ASS FRONTAL&L ATERAL INITIAL 30842 [facility] FRYMAN OBSERVATI 6 PHYSICIAN EUG ON S GROUP CARE/DAY 50 MINUTES POLYSOM 42792 HARDEEP MEIER 6/>YRS 6 [facility] SLEEP INC INC W/CPAP 4/> ADDL LOCO ATTND TUBING A7037 JHOAN STAPLES USED WITH 6 HOME HOME POSITIVE MEDICAL MEDICAL AIRWAY EQUIPME EQUIPME PRESSURE DEVICE FILTER A7038 JHOAN STAPLES DISPBL 6 HOME HOME USED MEDICAL MEDICAL W/POS EQUIPME EQUIPME [place]ICE NJX 57211 GIORGIO MYERS ANES&/STR 6 MIRIAM HERNANDEZ W/ANAM ARIA TURNER,PSC TFRML EDRL LMBR/SAC [place] LV NJX 52292 GIORGIO MYERS ANES&/STR 6 MIRIAM HERNANDEZ W/ANA MARIA TURNER,PSC TFRML EDRL LMBR/SAC 1 LVL FACE MASK A7031 JHOAN STAPLES 6 HOME HOME INTERFACE MEDICAL MEDICAL REPLCMT EQUIPME EQUIPME FULL FACE MASK EA INJECTION J0696 [facility] GUNNER 6 PHYSICIAN KETAN CEFTRIAXO S GROUP NE SODIUM PER 250 MG INJECTION J1040 [facility] GUNNER 6 PHYSICIAN KETAN METHYLPRE S GROUP DNISOLONE ACETATE 80 MG THERAPEUT 88589 [facility] GUNNER IC 6 PHYSICIAN KETAN PROPHYLAC S GROUP TIC/DX INJECTION SUBQ/IM CONTINUOU E0601 JHOAN STAPLES S 5 HOME HOME POSITIVE MEDICAL MEDICAL AIRWAY EQUIPME EQUIPME PRESSURE DEVICE CONTINUOU E0601 JHOAN STAPLES S 5 HOME HOME POSITIVE MEDICAL MEDICAL AIRWAY EQUIPME EQUIPME PRESSURE DEVICE ECG 08251 HARDEEP MEIER ROUTINE 5 [facility] ECG INC INC W/LEAST 12 LDS TRCG ONLY W/O I&R ECG 88382 CARDIOVAS JOSE ROUTINE 5 CULAR MAT ECG CONSULTAN W/LEAST TS O 12 LDS I&R ONLY ECG 85849 HARDEEP KEITH JR ROUTINE 5 [facility] W/LEAST P 12 LDS I&R ONLY COMPREHEN 03325 HARDEEP MEIER SIVE 5 [facility] METABOLIC INC INC PANEL COLLECTIO 04800 HARDEEP MEIER N VENOUS 5 [facility] [place] [address] HARDEEP MEIER TROPONIN 5 [facility] QUANTITAT INC INC SASCHA ECG 20534 HARDEEP MEIER ROUTINE 5 [facility] ECG INC INC W/LEAST 12 LDS TRCG ONLY W/O I&R BLOOD 34009 HARDEEP MEIER COUNT 5 [facility] COMPLETE INC INC AUTO&[place] [address] DI ABRAMS ALL 2 VIEWS 5 MEDICAL FRNT & IMAGING LAT ASS APICAL LORDOTIC PX FACE MASK A7031 JOHAN JHOAN 5 HOME HOME INTERFACE MEDICAL MEDICAL REPLCMT EQUIPME EQUIPME FULL FACE MASK EA FILTER A7038 JHOAN JHOAN DISPBL 5 HOME HOME USED MEDICAL MEDICAL W/POS EQUIPME EQUIPME ARWAY PRESSURE DEVICE ECG 54465 HARDEEP MEIER ROUTINE 5 [facility] ECG INC INC W/LEAST 12 LDS TRCG ONLY W/O I&R CONTINUOU E0601 JHOAN JHOAN S 5 HOME HOME POSITIVE MEDICAL MEDICAL AIRWAY EQUIPME EQUIPME PRESSURE DEVICE THERAPEUT 30670 HARDEEP MARTINO IC 5 [facility] TIC/DX INJECTION SUBQ/IM INJECTION J1040 HARDEEP MARTINO 5 [facility] DNISOLONE ACETATE 80 MG INJECTION J0696 HARDEEP MARTINO 5 [facility] NE SODIUM PER 250 MG TUBING A7037 [...] E AIRWAY EQUIPME EQUIPME PRESSURE DEVICE BASIC 71667 HARDEEP MEIER METABOLIC 5 [facility] PANEL INC INC CALCIUM TOTAL COLLECTIO 07482 HARDEEP MEIER N VENOUS 5 [facility] BLOOD INC INC VENIPUNCT URE ECG 65983 CARDIOVAS JOSE ROUTINE 5 CULAR MAT ECG CONSULTAN W/LEAST TS O 12 LDS I&R ONLY ECG 10543 HARDEEP TIJERINAON ROUTINE 5 [facility] ECG INC INC W/LEAST 12 LDS TRCG ONLY W/O I&R THERAPEUT 98938 HARDEEP FERNANDES IC 5 [facility] TIC/DX INJECTION SUBQ/IM INJECTION J1100 HARDEEP ANTUNEZYMAN 5 [facility] SONE SODIUM PHOSPHATE 1 MG APPL 89854 [place] ANTONY MODALITY 5 GAR 1/> AREAS CHIROPRAC TRACTION TIC CENTE MECHANICA L ECG 68301 CARDIOVAS JOSE ROUTINE 5 CULAR MAT ECG CONSULTAN W/LEAST TS O 12 LDS I&R ONLY CHIROPRAC 96987 CLAUDETTEFERMINLUI ANTONY TIC 5 GAR MANIPLTV CHIROPRAC TX TIC CENTE EXTRASPIN AL 1/> REGION CHIROPRAC 53006 [place] ANTONY TIC 5 GAR MANIPULAT CHIROPRAC SASCHA TX TIC CENTE SPINAL 1-2 REGIONS ECG 05182 HARDEEP TIJERINAON ROUTINE 5 [facility] ECG INC INC W/LEAST 12 LDS TRCG ONLY W/O I&R THERAPEUT 68182 CLAUDETTEFERMINLUI ANTONY IC PX 1/> 5 GAR AREAS CHIROPRAC EACH 15 TIC CENTE MIN EXERCISES VICTIM WITNESS ADMINISTRATOR STDY 77286 HARDEEP HARDEEP UNATND 5 [facility] W/HRT INC INC RATE/O2 SAT/RESP/ VICTIM WITNESS ADMINISTRATOR TIME SBSQ 13656 [facility] 5 CULAR MAT CARE/DAY CONSULTAN 25 TS O MINUTES INITIAL 18119 [facility] 5 CULAR MAT CARE/DAY CONSULTAN 70 TS O MINUTES SBSQ 87794 [facility] NELDA OBSERVATI 5 PHYSICIAN KETAN ON S GROUP CARE/DAY 15 MINUTES CATH PLMT 46239 CARDIOVAS [facility] L HRT & 5 CULAR MAT ARTS CONSULTAN W/NJX & TS O ANGIO IMG S&I RADIOLOGI 75343 DI Chin 5 MEDICAL [place] EXAMINATI IMAGING ON CHEST ASS SINGLE VIEW FRONTAL ECG 98486 HARDEEP KEITH JR ROUTINE 5 [facility] W/LEAST P 12 LDS I&R ONLY INITIAL 99964 [facility] NELDA OBSERVATI 5 PHYSICIAN KETAN ON S GROUP CARE/DAY 50 MINUTES RADEX 53308 [facility] TRA SPINE 5 [place] LUMBOSACR ORTHOPAED AL 2/3 [facility] VIEWS RADEX 74070 [facility] TRA SPINE 5 [place] LUMBOSACR ORTHOPAED AL 2/3 [facility] VIEWS RADEX 61500 [facility] TRA SPINE 5 [place] LUMBOSACR ORTHOPAED AL 2/3 [facility] VIEWS POSTERIOR 23294 [facility] TRA 5 [place] NON-SEGME ORTHOPAED NTAL [facility] INSTRUMEN TATION ANESTHESI 44015 ANESTHESI EASTMAN A LUMBAR 5 A ANDERSEN REGION ASSOCIATE NOS S PSC ARTHRODES 62232 [facility] TRA IS 5 [place] POSTERIOR ORTHOPAED [facility]CS PLC INTERBODY LUMBAR LUMBAR 8107 [facility] LUMBOSACR [address] [place] [address] AL FUSION POST COLUMN POST TECH FUSION [place] 8162 [facility] REFUSION [address] [place] [address] OF 2-3 VERTEBRAE EXCISION 7770 [facility] [address] [place] [address] FOR GRAFT UNSPECIFI ED SITE EXCISION [address] INTERVERT EBRAL DISC BLOOD 07624 [facility] TYPING 5 N N SEROLOGIC COMMUNTIY COMMUNTIY RH (D) HOSPITA HOSPITA COMPATIBI 80976 [facility] LITY EACH 5 N N UNIT COMMUNTIY COMMUNTIY IMMEDIATE HOSPITA HOSPITA SPIN TECHNIQUE ANTIBODY 99454 [facility] SCREEN 5 N N RBC EACH COMMUNTIY COMMUNTIY SERUM HOSPITA HOSPITA TECHNIQUE BLOOD 69704 [facility] TYPING 5 N N SEROLOGIC COMMUNTIY COMMUNTIY ABO HOSPITA HOSPITA COLLECTIO 47206 [facility] N VENOUS 5 N N BLOOD COMMUNTIY COMMUNTIY VENIPUNCT HOSPITA HOSPITA URE COLLECTIO 13427 [facility] N VENOUS 5 N N BLOOD COMMUNTIY COMMUNTIY VENIPUNCT HOSPITA HOSPITA URE BASIC 22908 [facility] METABOLIC 5 N N PANEL COMMUNTIY COMMUNTIY CALCIUM HOSPITA HOSPITA TOTAL MRI 40220 [facility] TRA SPINAL 5 [place] CANAL ORTHOPAED LUMBAR [facility] W/O CONTRAST MATERIAL BLOOD 40155 [facility] COUNT 5 N N COMPLETE COMMUNTIY COMMUNTIY AUTOMATED HOSPITA HOSPITA ECG 67090 [facility] ROUTINE 5 N N ECG COMMUNTIY COMMUNTIY W/LEAST HOSPITA HOSPITA 12 LDS TRCG ONLY W/O I&R RADIOLOGI 36751 [facility] [place] SCALF CANDICE C EXAM 5 RADIOLOGY CHEST 2 VIEWS FRONTAL&L ATERAL RADIOLOGI 94247 HARDEEP MEIER C EXAM 5 [facility] CHEST 2 INC INC VIEWS FRONTAL&L ATERAL THERAPEUT 19111 HARDEEP MEIER IC 5 [facility] PROPHYLAC INC INC TIC/DX INJECTION SUBQ/IM BLOOD 76572 HARDEEP MEIER COUNT 5 [facility] COMPLETE INC INC AUTO&AUTO DIFRNTL WBC IAADI 15341 HARDEEP MEIER INFFLUENZ 5 [facility] A A VIRUS INC INC IAADI 11305 HARDEEP MEIER INFLUENZA 5 [facility] B VIRUS INC INC COMPREHEN 78488 HARDEEP MEIER SIVE 5 [facility] METABOLIC INC INC PANEL PRESSURIZ 01435 HARDEEP MEIER ED/NONPRE 5 [facility] SSURIZED INC INC INHALATIO N TREATMENT DXA BONE 53975 GIORGIO PATEL 5 [place] PET STUDY 1/> SITES AXIAL SKEL RADEX 67240 [facility] TRA SPINE 5 [place] LUMBOSACR ORTHOPAED AL 2/3 [facility] VIEWS PRESSURIZ 65220 HARDEEP MEIER ED/NONPRE 5 [facility] SSURIZED INC INC INHALATIO N TREATMENT THERAPEUT 90937 HARDEEP MEIER IC 5 [facility] PROPHYLAC INC INC TIC/DX INJECTION SUBQ/IM FLUOR 86437 GIORGIO PEM[place]ERT[place] NEEDLE/CA 5 GANESH HERNANDEZ MD,[facility] SPINE/PAR ASPINAL DX/THER ADDON NJX 71940 GIORGIO [place] DX/THER 5 [facility] EPIDURAL/ SUBARACH LUMBAR/SA CRAL INJECTION J1100 [facility] NELDA 5 PHYSICIAN KETAN DEXAMETHO S GROUP SONE SODIUM PHOSPHATE 1 MG THERAPEUT 57449 [facility] NELDA IC 5 PHYSICIAN KETAN PROPHYLAC S GROUP TIC/DX INJECTION SUBQ/IM NJX 21649 STONE STONE DX/THER [address] [facility] SUR[facility] SURGERY EPIDURAL/ CENTER CENTER SUBARACH LUMBAR/SA CRAL FLUOR 88646 GIORGIO [place] NEEDLE/CA 4 GANESH HERNANDEZ MD,[facility] SPINE/PAR ASPINAL DX/THER ADDON SIMPLE 63617 [facility] SHA REPAIR 4 JAVIER SCALP/NEC EMERGENCY K/AX/IVETH PHYS T/TRUNK 2.5CM/< APPLICATI 46205 HARDEEP MEIER ON FINGER 4 [facility] SPLINT INC INC STATIC RADEX 71627 HARDEEP MEIER FINGR 4 [facility] MINIMUM 2 INC INC VIEWS PETE 77976 HARDEEP PINA JR POST-VOID 4 [facility] RESIDUAL P URINE&/BL ADDER CAP URNLS DIP 18544 HARDEEP MEIER 4 [facility] LET RGNT P P NON-AUTO W/O MICRSCP THERAPEUT 68593 [facility] NELDA IC 4 PHYSICIAN KETAN PROPHYLAC S GROUP TIC/DX INJECTION SUBQ/IM INJECTION J1040 [facility] NELDA 4 PHYSICIAN KETAN METHYLPRE S GROUP DNISOLONE ACETATE 80 MG SUSCEPTIB 01099 HARDEEP MEIER LTY STDY 4 [facility] ANTIMICRB INC INC IAL MICRO/AGA R DILUTJ CULTURE 72231 HARDEEP MEIER BCT 4 [facility] ISOL&PRSM INC INC PTV ID ISOLATE EA URINE CULTURE 27574 HARDEEP MEIER BACTERIAL 4 [facility] INC INC QUANTTATI VE COLONY COUNT URINE INJECTION J1040 [facility] NELDA 4 PHYSICIAN KETAN METHYLPRE S GROUP DNISOLONE ACETATE 80 MG THERAPEUT 58047 [facility] IC 4 PHYSICIAN PHYSICIAN PROPHYLAC S GROUP S GROUP TIC/DX INJECTION SUBQ/IM THERAPEUT 73378 [facility] NELDA IC 4 PHYSICIAN KETAN PROPHYLAC S GROUP TIC/DX INJECTION SUBQ/IM INJECTION J1040 [facility] NELDA 4 PHYSICIAN KETAN METHYLPRE S GROUP DNISOLONE ACETATE 80 MG BASIC 08261 HARDEEP MEIER METABOLIC 4 [facility] PANEL INC INC CALCIUM TOTAL DRUG SCR G0434 JEREMÍAS HAM JEREMÍAS HAM NOT 4 CHROMATOG RAPHIC; ANY NUMBER PT ENC RADEX 22679 MARTHA MARTHA HAND 2 4 [place] VIEWS RADEX 83995 HARDEEP MEIER HAND 4 [facility] MINIMUM 3 INC INC VIEWS RADEX HIP 48760 CINTRON TRA CINTRON TRA 4 UNILATERA L COMPLETE MINIM[place] [address] ALPHONSE CUNHA 1/> AREAS 4 MAXIMO MAXIMO EACH 15 MIN NEUROMUSC REEDUCA APPL 91033 [facility] MODALITY 4 MAXIMO MAXIMO 1/> AREAS ELEC STIMJ UNATTENDE D CHIROPRAC 10983 [facility] TIC 4 MAXIMO MAXIMO MANIPULAT [place] SPINAL 3-[place] [address] ALPHONSE CUNHA 1/> AREAS 4 MAXIMO MAXIMO EACH 15 MINUTES MASSAGE CHIROPRAC 19316 [facility] TIC 4 MAXIMO MAXIMO MANIPULAT [place] SPINAL 3-[place] [address] ALPHONSE CUNHA 1/> AREAS 4 MAXIMO MAXIMO EACH 15 MINUTES MASSAGE APPL 64642 [facility] MODALITY 4 MAXIMO MAXIMO 1/> AREAS [place] [address] ALPHONSE CUNHA 1/> AREAS 4 MAXIMO MAXIMO EACH 15 MIN NEUROMUSC REEDUCA MRI 39473 [facility] TRA CINTRON TRA SPINAL 4 CANAL LUMBAR W/O CONTRAST MATERIAL RADEX 83504 CINTR[facility] TRA CINTRON TRA SPINE 4 LUMBOSACR AL 2/3 VIEWS PETE 95636 YOVANI PINA JR POST-VOID 4 DEB DEB ING RESIDUAL URINE&/BL ADDER CAP HEMOGLOBI 50457 HARDEEP MEIER N 4 [facility] GLYCOSYLA [place] [address] HARDEEP MEIER THYROID 4 [facility] STIMULATI [place] [address] HARDEEP MEIER THYROXINE 4 [facility] TOTAL INC INC COMPREHEN 78503 HARDEEP MEIER SIVE 4 [facility] METABOLIC INC INC PANEL LIPID 76956 HARDEEP MEIER PANEL 4 [facility] INC INC BLOOD 74533 HARDEEP WARD LIS COUNT 4 [facility] COMPLETE INC AUTO&AUTO DIFRNTL WBC CULTURE 13723 HARDEEP MEIER BACTERIAL 4 [facility] INC INC QUANTTATI VE COLONY COUNT URINE CUL BACT 50096 HARDEEP MEIER XCPT 4 [facility] URINE INC INC BLOOD/STO OL AEROBIC ISOL IAADI 24220 HARDEEP MEIER INFLUENZA 4 [facility] B VIRUS INC INC IAADI 40235 HARDEEP MEIER INFFLUENZ 4 [facility] [place] [address] HARDEEP MEIER INFUSION 4 [facility] THERAPY/P INC INC ROPHYLAXI S /DX 1ST TO 1 HR INJECTION J2405 HARDEEP MEIER 4 [facility] ONDANSETR INC INC ON HCL PER 1 MG THERAPEUT 24058 HARDEEP MEIER IC 4 [facility] INJECTION INC [place] [address] HARDEEP MEIER STREPTOCO 4 [facility] CCUS INC INC GROUP A RADEX 61289 HARDEEP MEIER SPINE 4 [facility] THORACIC INC INC 2 VIEWS THERAPEUT 09323 HARDEEP MEIER IC 4 [facility] PROPHYLAC INC INC TIC/DX INJECTION SUBQ/IM ANESTHESI 01965 PATSY & Farrukh ROGERS 1 VANDANA RGOERS INTRAORAL PLLC WITH BIOPSY NOS BASIC 92550 [facility] METABOLIC 1 DIAGNOSTI DIAGNOSTI PANEL CS CS CALCIUM TOTAL LIPOPROTE 41588 [facility] IN DIRECT 1 DIAGNOSTI DIAGNOSTI CS CS MEASUREME NT LDL CHOLESTER OL LIPID 02872 [facility] PANEL 1 [place] [address] [facility] THYROID 1 DIAGNOSTI DIAGNOSTI STIMULATI CS CS NG HORMONE TSH APPLICATI 93.54 Jordi STRINGER OF Burt BAKER MD Encounters Encounter Start End Date Code Location Performer Type Date OFFICE 21130 [facility] ELIZABETH 7 7 Christy HERNANDEZ VISIT ,PSC 15 MINUTES OFFICE 76140 GI[facility] ELIZABETH 7 7 Christy HERNANDEZ VISIT ,PSC 25 MINUTES HOSPITAL [facility] - 7 7 [facility] OUTPATIEN [facility] HARDEEP - 7 7 [facility] T EMERGENCY 69114 HARDEEP 7 7 [facility] T VISIT HIGH/URGE NT SEVERITY EMERGENCY 55108 DANNY BEE DEPT 7 7 PHYSICIAN VISIT S, PLLC HIGH SEVERITY& THREAT [facility] HARDEEP - 7 7 [facility] OUTPATIEN [facility] T EMERGENCY 13272 DANNY BEE DEPT 7 7 PHYSICIAN VISIT S, PLLC HIGH SEVERITY& THREAT [facility]ERGENC[facility] 07300 HARDEEP 7 7 [facility] T VISIT HIGH/URGE NT SEVERITY HOSPITAL HARDEEP - 7 7 [facility]EN [facility] OFFICE 31031 [facility] SRIVASTAV GLENN 7 7 PHYSICIAN A T VISIT S GROUP 25 MINUTES OFFICE 91594 GIORGIO ELIZABETH 6 6 DAVID TURNER T VISIT PSC 25 MINUTES HOSPITAL HARDEEP - 6 6 [facility] OUTPATIEN [facility] T EMERGENCY 74508 DANNY RENAE DEPT 6 6 PHYSICIAN U VAMSHI VISIT S, PLLC HIGH SEVERITY& THREAT [facility] OFFICE 52742 [facility] JOSE OUTPATIEN 6 6 PHYSICIAN MAT T VISIT S GROUP 25 MINUTES OFFICE 27206 [facility] OUTPATIEN 6 6 PHYSICIAN T VISIT S GROUP 25 MINUTES OFFICE 02777 [facility] ALVARES OUTPATIEN 6 6 NATIVIDAD HERNANDEZ T VISIT ,PSC 25 MINUTES OFFICE 99272 [facility] OUTPATIEN 6 6 T VISIT ORTHOPAED 15 ICS PSC MINUTES OFFICE 75719 ALVARES GANZEL OUTPATIEN 6 6 MIRIAM HERNANDEZ T VISIT ,PSC 25 MINUTES EMERGENCY 86230 HARDEEP ALLEN 6 6 [facility] DEPARTMEN INC T VISIT MODERATE SEVERITY HOSPITAL HAR[facility]EP - 6 6 [facility] OUTPATIEN INC T EMERGENCY 70225 DANNY ANDRADE 6 6 PHYSICIAN JR [facility]AS [facility] S, [facility] T VISIT HIGH/URGE NT SEVERITY OFFICE 12106 [facility] OUTPATIEN 6 6 T VISIT ORTHOPAED 15 ICS PSC MINUTES OFFICE 14769 YAZIDI SUGAR OUTPATIEN 6 6 HEALTH JAM T NEW 45 MEDICAL MINUTES GROUP OFFICE 13538 [facility] SALLIE OUTPATIEN 6 6 PHYSICIAN ANDERSEN T VISIT S GROUP 15 MINUTES EMERGENCY 58372 DANNY LUTZ DEPT 6 6 PHYSICIAN KETAN VISIT S, [facility] HIGH SEVERITY& [facility] 6 6 [facility] OUTPATIEN INC T OFFICE 43877 ALVARES ALVARES OUTPATIEN 6 6 NATIVIDAD HERNANDEZ T VISIT ,PSC 25 MINUTES OFFICE 96226 SHAMAR HERZOG OUTPATIEN 6 6 MEDICAL T VISIT SERV 15 FOUNDATIO MINUTES N OFFICE 28950 [facility] SALLIE OUTPATIEN 6 6 PHYSICIAN ANDERSEN T VISIT S GROUP 15 MINUTES HOSPITAL HAR[facility]EP - 6 6 [facility] OUTPATIEN INC T OFFICE 27297 [facility] JOSE OUTPATIEN 6 6 PHYSICIAN MAT T VISIT S GROUP 25 MINUTES HOSPITAL [facility] - 6 6 [facility] OUTPATIEN INC T HOSPITAL HAR[facility] - 6 6 [facility] OUTPATIEN INC T OFFICE 88498 [facility] JOSE OUTPATIEN 6 6 PHYSICIAN MAT T VISIT S GROUP 25 MINUTES OFFICE 27006 POLO POLO OUTPATIEN 6 6 HUMBERTO HUMBERTO T NEW 20 MINUTES OFFICE 00831 GIORGIO GANPAVAN OUTPATIEN 6 6 DAVID, T VISIT ,PSC 25 MINUTES HOSPITAL HAR[facility]EP - 6 6 [facility] OUTPATIEN INC T OFFICE 30386 [place] SANCHEZ MINO OUTPATIEN 6 6 MEDICAL T NEW 45 SERV MINUTES FOUNDATIO N EMERGENCY 44101 DANNY LUTZ 6 6 PHYSICIAN KETAN DEPARTMEN S, [facility] T VIS[facility] HIGH/URGE NT SEVERITY HOSPITAL [facility] - 6 6 [facility] OUTPATIEN INC T OFFICE 04731 ADELAIDE LAM MAR CONSULTAT 6 6 ION NEUROSCIE NEW/ESTAB NCES CENT PATIENT 40 MIN OFFICE 88559 [facility] GUNNER OUTPATIEN 6 6 PHYSICIAN KETAN T VISIT S GROUP 15 MINUTES OFFICE 83976 GIORGIO MYERS OUTPATIEN 5 5 DAVID PINEDA T VISIT PSC 25 MINUTES OFFICE 25676 CARDIOVAS JOSE OUTPATIEN 5 5 CULAR MAT T VISIT CONSULTAN 25 TS O MINUTES HOSPITAL HARDEEP - 5 5 [facility] OUTPATIEN INC T EMERGENCY 91819 HARDEEP 5 5 [facility] DEPARTMEN INC T VISIT MODERATE SEVERITY HOSPITAL [facility] - 5 5 [facility] OUTPATIEN INC T EMERGENCY 80844 DANNY SANDHU DEPT 5 5 PHYSICIAN FOR VISIT S, PLLC HIGH SEVERITY& THREAT [facility] HARDEPE - 5 5 [facility] OUTPATIEN INC T OFFICE 55518 HARDEEP MARTINO OUTPATIEN 5 5 [facility] T VISIT HOSPITAL 15 MINUTES HOSPITAL HARDEEP - 5 5 [facility] OUTPATIEN INC T OFFICE 22219 CARDIOVAS JOSE OUTPATIEN 5 5 CULAR MAT T VISIT CONSULTAN 25 TS O MINUTES OFFICE 33384 HARDEEP FERNANDES OUTPATIEN 5 5 [facility] T VISIT [facility] 15 MINUTES OFFICE 32735 CARDIOVAS JOSE OUTPATIEN 5 5 CULAR MAT T VISIT CONSULTAN 25 TS O MINUTES OFFICE 19478 [place] ANTONY OUTPATIEN 5 5 [facility] T VISIT CHIROPRA 15 [facility] HARDEEP - 5 5 [facility] OUTPATIEN INC HOSPITAL HAR[facility] - 5 5 [facility] OUTPATIEN INC T EMERGENCY 51860 DANNY CHENG 5 5 PHYSICIAN EMMY GUILLERMOMEN S, [facility] T VISIT HIGH/URGE NT SEVERITY OFFICE 46655 HARDEEP MARTINO OUTPATIEN 5 5 [facility] VISIT HOSPITAL 15 MINUTES [facility] [place] [address] HOSPITAL INPATIENT [facility] - 5 5 N OUTPATIEN COMMUNTIY T [facility] - 5 5 N OUTPATIEN COMMUNTIY T [facility] EM[facility] 75086 HARDEEP 5 5 [facility] DEPARTMEN [facility] T VISIT MODERATE SEVERITY [facility]OSP[facility] - 5 5 [facility] OUTPATIEN INC T OFFICE 32264 [facility] TRA OUT[place] 5 5 [place] T VISIT [facility] MINUTES [facility]OSP[facility] - 5 5 [facility] OUTPATIEN INC T EMERGENCY 60384 [facility] 5 5 [facility] DEPARTMEN INC T VISIT LOW/MODER SEVERITY EMERGENCY 51171 [facility] DILLON 5 5 [facility] T VISIT P MODERATE SEVERITY OFFICE 06616 [facility] NELDA OUTPATIEN 5 5 PHYSICIAN KETAN T VISIT S GROUP 10 MINUTES OFFICE 11590 [facility] FRYMAN OUTPATIEN 5 5 PHYSICIAN EUG T VISIT S GROUP 15 MINUTES EMERGENCY 12872 [facility] 4 4 [facility] HIGH/URGE NT SEVERITY EMERGENCY 22708 [facility] 4 4 [facility] EMERGENCY T VISIT PHYS MODERATE SEVERITY HOSPITAL [facility] - 4 4 [facility] OUTPATIEN INC T OFFICE 47135 [facility] NELDA OUTPATIEN 4 4 PHYSICIAN KETAN T VISIT S GROUP 15 MINUTES HOSPITAL [facility] - 4 4 [facility] OUTPATIEN INC T HOSPITAL [facility] - 4 4 [facility] INC T OFFICE 04124 [facility] OUTPATIEN 4 4 PHYSICIAN T VISIT S GROUP 15 MINUTES OFFICE 13711 [facility] OUTPATIEN 4 4 T NEW 45 MINUTES EMERGENCY 80897 [facility] NELDA 4 4 [facility] MOD[facility]ATE SEVERITY [facility] - 4 4 [facility] OUTPATI[facility] INC T EMERGENCY 34019 [facility] 4 4 [facility] LOW/MODER SEVERITY OFFICE 23268 [facility] OUTPATIEN 4 4 PHYSICIAN T NEW 20 S GROUP MINUTES OFFICE 55663 [facility] OUTPATIEN 4 4 T VISIT 25 MINUTES OFFICE 19569 [facility] OUT[facility] 4 4 MAXIMO MAXIMO T NEW 30 MINUTES OFFICE 41413 [facility] TRA CONSULTAT 4 4 ION NEW/ESTAB PATIENT 40 MIN OFFICE 17175 YOVANI JR YOVANI JR OUTPATIEN 4 4 DEB DEB T NEW 20 MINUTES OFFICE 98255 NELDA LUTZ OUTPATIEN 4 4 KETAN KETAN T VISIT 15 MINUTES OFFICE 35464 NELDA WHARTONEY OUTPATIEN 4 4 KETAN KETAN T VISIT 10 MINUTES HOSPITAL [facility] - 4 4 [facility] OUTPATIEN INC T Emergency ELTON Guidry MD (ER) 4 14:35 4 16:35 [facility] - 4 4 [facility] OUTPATIEN INC T EMERGENCY 53277 [facility] 4 4 [facility] DEPARTMEN INC T VISIT MODERATE SEVERITY Emergency ELTON CHAVEZ DO (ER) 4 17:57 4 18:15 [facility] EMERGENCY 63235 CHERY CHAVEZ MIRIAM 4 4 EMERGENCY DEPARTMEN SERVICES T VISIT HIGH/URGE NT SEVERITY HOSPITAL [facility] - 4 4 [facility] OUTPATIEN INC T EMERGENCY 22636 [facility] 4 4 [facility] DE[facility] INC T VISIT LOW/MODER SEVERITY Emergency ELTON Guidry MD (ER) 3 20:18 3 23:06 [facility] Emergency ELTON GRIGGS (ER) 3 22:44 3 23:11 [facility] Emergency ELTON Jackson MD (ER) 3 14:38 3 16:29 [facility]. Emergency ELTON [place] (ER) 3 18:08 3 19:12 [facility] Emergency ELTON ZIMMERMAN MD (ER) 3 13:32 3 15:32 [facility] Emergency ELTON LUCIANO (ER) 3 12:19 3 13:54 [facility] A OFFICE 10089 JOSE GARCIA OUTPATIEN 1 1 CANDICE CANDICE T VISIT 15 MINUTES
--- OUTSIDE RECORDS SUMMARY | 2017-03-17 07:39 | External Medical Summary Rpt ---
Author Author , KEENAN HUSSEIN Address Unknown Phone [email or web address] Team Providers Care Screening Technician Name Role Phone ALPHONSE MAXIMO, Unavailable Unavailable ALPHONSE MAXIMO ALPHONSE MAXIMO, Unavailable Unavailable ALPHONSE MAXIMO [facility] Unavailable Unavailable [facility], [facility] MARTHA URIASARD Unavailable Unavailable [facility] GIORGIO HENSON, ALVARES Unavailable Unavailable [facility]AD HERNANDEZ MD Unavailable Unavailable PSCGIORGIO MD PSC GIORGIO HERNANDEZ, Unavailable Unavailable ,PSC, GIORGIO HERNANDEZ MD,[facility] Unavailable Unavailable MEDICAL GROUP, [facility] EASTMAN ANDERSEN, EASTMAN Unavailable Unavailable ANDERSEN BEINEKE, BEINEKE Unavailable Unavailable BESSON MIRIAM, BESSON Unavailable Unavailable MIRIAM [facility] Unavailable Unavailable [facility], [facility] ABRAMS ALL, ABRAMS ALL Unavailable Unavailable [facility] Unavailable Unavailable [facility], [facility] Unavailable Unavailable [facility], [facility] CRAGER JAM, CRAGER Unavailable Unavailable [...] Unavailable GANZEL MIRIAM, GANZEL Unavailable Unavailable MIRIAM [facility] Unavailable Unavailable HOS[facility], [facility] Un[facility], [facility] Unavailable Unavailable H[facility]PITAL, [facility] Unavailable Unavailable HOSPITAL P, [facility], Unavailable Unavailable [facility] BEE, BEE Unavailable Unavailable CINTRON, CINTRON Unavailable Unavailable CINTRON TRA, [facility] TRA Unavailable Unavailable [facility] Unavailable Unavailable [facility], [facility] ED LIS, ED LIS [...] PROSPER EMMY, PROSPER Unavailable Unavailable EMMY CASSIA GAR, Unavailable Unavailable CASSIA GAR [facility], Unavailable [facility]available [facility], [facility] PAVEZ MAR, PAVEZ MAR Unavailable Unavailable ROGERS, III RADHA, Unavailable Unavailable ROGERS, III RADHA [facility], Unavailable Unavailable [facility], Unavailable Unavailable [facility] KATHY MIRIAM, KATHY MIRIAM Unavailable Unavailable JOSE CANDICE, JOSE Unavailable Unavailable CANDICE [facility] Unavailable Unavailable [id number] [address] [id number], [facility] [id number] [address] [id number] GARCIA MARTHA, GARCIA Unavailable Unavailable MARTHA JOSE MAT, Unavailable Unavailable JOSE MAT HERRERA BENNETT, HERRERA BENNETT Unavailable Unavailable [facility] Unavailable Unavailable [facility], [facility] Unavailable Unavailable [facility], [facility] SOTINGEANU VAMSHI, Unavailable Unavailable [facility] Un[facility], [facility], Unavailable Unavailable [facility], Unavailable Unavailable [facility] Unavailable Unavailable CENTER, [facility] Unavailable Unavailable CENTER, [facility] # Unavailable Unavailable [id number], [facility] # [id number] WALKER FOR, WALKER Unavailable Unavailable FOR SANCHEZ MINO, SANCHEZ MINO Unavailable Unavailable WELLS SHA, WELLS SHA Unavailable Unavailable HERNANDEZ PET, HERNANDEZ Unavailable Unavailable PET YEISER, YEISER Unavailable Unavailable Purpose Continuity of Care Document - 10-31-2010 through 2016 Problems Code Diagnosis DOS Provider Status 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 DEONNA RODRIGUEZ MD,PSC [facility] LUMBAR REGION M5416 RADICULOPAT 11-16-2016 GIORGIO HY LUMBAR ORALIA HERNANDEZ MD,PSC [id number] CHECK AND TRANSFER BEADER 11-16-2016 GIORGIO CURRENT USE DAVID OF OPIATE ,[facility] ANALGESIC R06374 TENSION-TYP 09-03-2016 POLO Vince HEADACHE UNSPECIFIED INTRACTABLE M542 CERVICALGIA 09-03-2016 POLO M9901 SEGMENTAL & 09-03-2016 [facility] SOMATIC DYSFUNCTION CERVICAL REGION M9902 SEGMENTAL & 09-03-2016 [facility] SOMATIC DYSFUNCTION THORACIC REGION G4733 OBSTRUCTIVE 08-19-2016 [facility] ADULT MEDICAL PEDIATRIC EQUIPME E785 HYPERLIPIDE 08-14-2016 [facility] UNSPECIFIED INC I10 ESSENTIAL 08-14-2016 [facility] HYPERTENSIO INC N I119 HYPERTENSIV 07-30-2016 [facility], DISEASE PLL WITHOUT HEART FAILURE I209 ANGINA 07-30-2016 [facility] PECTORIS PHYSICIANS, UNSPECIFIED [facility] M79486 ASHD COUSHATTA 07-30-2016 [facility] ANGINA PECTORIS R079 CHEST PAIN 07-30-2016 [facility] UNSPECIFIED [facility] R0789 OTHER CHEST 07-29-2016 [facility] PAIN PHYSICIANS, [facility] I2510 ASHD COUSHAT[place] 07-16-2016 [facility] CORONARY PHYSICIANS ARTERY W/O GROUP ANGINA PECTORIS 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 [facility] NEC R55 SYNCOPE AND 05-07-2016 [facility] COLLAPSE PHYSICIANS GROUP E669 OBESITY 04-28-2016 [facility] UNSPECIFIED PHYSICIANS GROUP E876 HYPOKALEMIA 04-28-2016 [facility], [facility] I708 ATHEROSCLER 04-28-2016 [facility] OSIS OF PHYSICIANS OTHER GROUP ARTERIES N182 CHRONIC 04-28-2016 [facility] KIDNEY PHYSICIANS DISEASE GROUP STAGE 2 MILD R0602 SHORTNESS 04-28-2016 [facility] OF BREATH PHYSICIANS GROUP J029 ACUTE 03-26-2016 [facility] PHARYNGITIS PHYSICIANS GROUP UNSPECIFIED R109 UNSPECIFIED 03-26-2016 [facility] ABDOMINAL PHYSICIANS PAIN GROUP R112 NAUSEA WITH 03-26-2016 [facility] VOMITING PHYSICIANS UNSPECIFIED GROUP M545 LOW BACK 01-30-2016 [facility] M4806 SPINAL 01-20-2016 GIORGIO STENOSIS DAVID LUMBAR ,[facility] REGION J4551 SEVERE 01-04-2016 [facility] PERSISTENT PHYSICIANS, ASTHMA WITH [facility] ACUTE EXACERBATIO N R05 COUGH 01-04-2016 [facility] R42 DIZZINESS 12-31-2015 [facility] Z6835 BODY MASS 12-31-2015 [facility] BMI HEALTH 35.0-35.9 MEDICAL ADULT GROUP J40 BRONCHITIS 12-28-2015 [facility] NOT PHYSICIANS SPECIFIED GROUP ACUTE OR CHRONIC R0600 DYSPNEA 11-26-2015 [facility] UNSPECIFIED [facility] INC N179 ACUTE 11-11-2015 [facility] UNSPECIFIED I1310 HTN HEART & 10-15-2015 [facility] CKD W/O HF PHYSICIANS W/STAGE GROUP 1-4 CKD/UNS CKD R28038 ASHD COUSHATTA 10-15-2015 [facility] COR ART PHYSICIANS W/OTH FORMS GROUP ANGINA PECTORIS N183 CHRONIC 10-15-2015 [facility] KIDNEY PHYSICIANS DISEASE GROUP STAGE 3 MODERATE R609 EDEMA 10-15-2015 [facility] UNSPECIFIED PHYSICIANS GROUP N19 UNSPECIFIED 10-13-2015 [facility] FAILURE INC Z0389 ENCOUNTER 10-03-2015 [facility]ICAL SUSPCT DZ & IMAGING ASS COND RULED OUT I208 OTHER FORMS 10-01-2015 [facility] OF ANGINA PHYSICIANS PECTORIS GROUP X14397 SPONDYLOSIS 09-16-2015 GIORGIO W/O DAVID, MYELOPATH/R ,PSC ADICULOPATH Y LUMB RGN I361 NONRHEUMATI 09-02-2015 [place] [facility] TRICUSPID SERV VALVE [facility] INSUFFICIEN CY M519 UNS THOR 08-20-2015 [facility] THORACOLUMB [facility] HOSP AR INC LUMBOSACRAL IV DISC D/O J069 ACUTE UPPER 08-11-2015 [facility], RESPIRATORY PLLC INFECTION UNSPECIFIED X10210 PAIN IN 08-11-2015 [facility] [place] LEFT HIP [facility] G08667 OTHER LONG 08-11-2015 [facility] TERM PHYSICIANS CURRENT GROUP DRUG THERAPY I425 OTHER 06-24-2015 [place] [facility]OSCIENC ES CENT CARDIOMYOPA THY J209 ACUTE 06-18-2015 [facility] BRONCHITIS PHYSICIANS UNSPECIFIED GROUP R0609 OTHER FORMS 04-23-2015 [facility] OF [facility]OS[facility] INC I422 OTHER 04-02-2015 [facility] HYPERTROPHI MEM HOSP C INC CARDIOMYOPA THY 66029 OBSTRUCTIVE 02-28-2015 [facility] E[facility] 2724 OTHER AND 02-26-2015 [facility] UNSPECIFIED MEM HOS[facility] INC HYPERLIPIDE CLEVE 4019 UNSPECIFIED 02-26-2015 [facility] ESSENTIAL MEM HOSP HYPERTENSIO INC N 04887 UNSPEC HTN 02-26-2015 [facility] DISEASE [facility] WITHOUT O HEART FAIL 4254 OTHER 02-26-2015 [facility] CARDIOMYOPA INC KATARINA 45892 OTHER 02-26-2015 [facility] DYSPNEA AND LAR CONSULTANTS RESPIRATORY O ABNORMALITI ES 4660 ACUTE 02-15-2015 [facility] 18829 STIFFNESS 02-12-2015 [place] [facility]INT CHIROPRACTI NEC C CENTE SHOULDER REGION 7234 BRACHIAL 02-12-2015 [place] NEURITIS OR CHIROPRACTI C CENTE RADICULITIS NOS 7282 MUSCULAR 02-12-2015 [place] WASTING AND CHIROPRACTI DISUSE C CENTE ATROPHY NEC 7283 OTHER 02-12-2015 [place] SPECIFIC CHIROPRACTI MUSCLE C CENTE DISORDERS 7393 NONALLOPATH 02-12-2015 [place] IC LESION CHIROPRACTI OF LUMBAR C CENTE REGION NEC 25382 NONSPECIFIC 02-12-2015 [facility] ABNORMAL [facility] ELECTROCARD INC IOGRAM 71275 UNSPECIFIED 02-06-2015 [place] [facility] SLEEP [facility] APNEA INC 43629 COR 01-30-2015 [facility] ATHEROSLERO LAR UNSPEC CONSULTANTS TYPE VESSEL O COUSHATTA/WILBERT T 15666 CHEST PAIN 01-30-2015 [facility] UNSPECIFIED LAR CONSULTANTS O 28043 OBESITY, 01-29-2015 [facility] UNSPECIFIED LAR CONSULTANTS O 4111 INTERMEDIAT 01-29-2015 [facility] E CORONARY LAR SYNDROME CONSULTANTS O 4011 ESSENTIAL 01-28-2015 [facility] HYPERTENSIO PHYSICIANS N, BENIGN GROUP 75150 CORONARY 01-28-2015 [facility] CORONARY ARTERY V5869 LONG-TERM 01-28-2015 [facility] (CURRENT) PHYSICIANS USE OF GROUP OTHER MEDICATIONS 55500 DEGEN 01-10-2015 [facility] [place] LUMBAR/LUMB [facility]THOPAEDIC OSACRAL S PLC INTERVERTEB RAL DISC 4619 ACUTE 11-27-2014 [facility] 3384 CHRONIC 10-16-2014 [facility] SYNDROME 72301 ASTHMA, 10-16-2014 [facility] , UNSPECIFIED STATUS 69328 UNSPECIFIED 10-16-2014 [facility] ARTHROPATHY SITE UNSPECIFIED 65791 DISPLCMT 10-16-2014 [facility] LUMBAR [facility] INTERVERT DISC W/O MYELOPATHY 16764 POSTLAMINEC 10-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 [facility]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 ORTHOPAEDIC SYNDROME S PLC LUMBAR REGION 21634 SPINAL STEN 10-16-2014 [facility] [place] LUMB REG [facility]THOP[facility]EDIC W/O S PLC NEUROGENIC CLAUDICATIO N 7245 UNSPECIFIED 10-16-2014 [facility] 7295 PAIN IN 10-16-2014 [facility]IS[facility]ES [facility] LIMB V1204 PERSONAL HX 10-16-2014 [facility] METHICILLIN RESIST STAPH AUREUS V7283 OTHER 10-09-2014 [facility] SPECIFIED COMMUNTIY PRE-OPERATI HOSPITA VE EXAMINATION V7286 ENCOUNTER 10-09-2014 [facility] FOR BLOOD COMMUNTIY TYPING HOSPITA 7242 LUMBAGO 10-02-2014 [facility] ORTHOPAEDIC S PLC 81129 ASTHMA 10-01-2014 [place] UNSPECIFIED MEDICAL WITH IMAGING ASS EXACERBATIO N 76838 FEVER 10-01-2014 [facility] UNSPECIFIED MEDICAL IMAGING ASS V8281 SPECIAL 09-20-2014 [facility] SCREENING FOR OSTEOPOROSI S 7244 THORACIC/RON 08-22-[address] MBOSACRAL SURGERY NEURITIS/RA CENTER DICULITIS UNSPEC 4611 ACUTE 06-19-2014 [facility] FRONTAL PHYSICIANS SINUSITIS GROUP 42004 CLOS 04-19-2014 [place] FRACTURE MEDICAL MID/PROXIMA IMAGING ASS L PHALANX/PHA LANG HAND 53307 OPEN 04-19-2014 [facility] FRACTURE N EMERGENCY MID/PROXIMA PHYS L PHALANX/PHA LANG HAND 8830 OPEN WOUND 04-19-2014 [facility] FINGER N EMERGENCY WITHOUT PHYS MENTION COMPLICATIO N E918 CAUGHT 04-19-2014 [facility] ACCIDENTALL N EMERGENCY Y IN OR PHYS BETWEEN OBJECTS 10750 HYPERTROPHY 04-12-2014 [facility] PROSTATE [facility] W/O UR [facility] P & OTH LUTS 6011 CHRONIC 04-12-2014 [facility] PROSTATITIS [facility] P 64908 SLOWING OF 04-12-2014 [facility] URINARY [facility] P 490 BRONCHITIS 04-05-2014 [facility] NOT PHYSICIANS SPECIFIED GROUP ACUTE OR CHRONIC 5990 URINARY 03-08-2014 [facility] TRACT [facility] INFECTION INC SITE NOT SPECIFIED 7213 LUMBOSACRAL 11-07-2013 [facility] SPONDYLOSIS WITHOUT MYELOPATHY 97462 EFFUSION OF 10-31-2013 [facility] HAND [place]INT [place] 89190 PAIN IN 10-31-2013 MARTHA JOINT, HAND [place] 13754 SPRAIN AND 10-31-2013 [facility] STRAIN OF MEM HOS[facility] UNSPECIFIED INC SITE OF HAND E9288 OTHER 10-31-2013 [facility] ACCIDENT 9182 SUPERFICIAL 10-23-2013 [facility] INJURY OF PHYSICIANS CONJUNCTIVA GROUP 8471 THORACIC 09-29-2013 [facility] SPRAIN AND MAXIMO STRAIN 47205 HYPERPLASIA 09-07-2013 YOVANI MORTENSEN PROSTATE DEB UNS W/O UR OBST & OTH LUTS 6010 ACUTE 09-04-2013 [facility] KETAN PROSTATITIS 6019 UNSPECIFIED 08-10-2013 [facility] PROSTATITIS INC 5641 IRRITABLE 06-26-2013 [facility] SYNDROME INC 7908 UNSPECIFIED 06-26-2013 [facility]IA [facility] INC V148 PERSONAL 06-14-2013 [facility] HISTORY [facility] ALLERGY OTH INC SPEC MEDICINAL AGTS 5206 DISTURBANCE 01-15-2011 ERE[facility] & S IN TOOTH ROGERS, ERUPTION PLLC 71370 OTHER 01-08-2011 [facility] Medications Na ND Rx Da Fi Fi [...] 08 09 60 30 00 HO Ac NH 00 -2 -2 .0 00 ME ti [...] CY ET NT HI AN A LI 68 08 09 30 15 00 HO Ac SI 18 -2 -2 .0 00 ME ti NO 00 1- 2- 00 06 TO ve NH 51 20 20 07 WN IL 70 17 17 34 3 87 PH 40 AR MA MG CY TA OF BL ET CY NT HI AN A GA 68 07 08 90 30 00 HO Ac BA 00 -2 -2 .0 00 ME ti PE 10 1- 5- 00 04 TO ve NT 00 20 20 02 WN IN 70 17 17 38 3 32 PH 80 AR 0 MA MG CY TA OF BL ET CY NT HI AN A GA 68 07 [...] 10 6- 1- 00 06 TO ve NH 27 20 20 07 WN IL 10 [...] 07 08 60 30 00 HO Ac NH 00 -0 -1 .0 00 ME ti OP 10 6- 1- 00 06 TO ve IO 30 20 20 08 WN N 80 17 17 68 HC 0 62 PH L AR 75 MA CY MG OF TA BL CY ET NT HI AN A GA 68 05 [...] ET NT HI AN A AM 68 05 06 30 30 00 HO Ac LO 38 -1 -1 .0 00 ME ti DI 20 2- 6- 00 06 TO ve PI 12 20 20 07 WN NE 20 17 17 60 5 57 PH BE AR SY MA LA CY TE 5 OF MG CY NT TA HI B AN A BU 68 05 06 60 30 00 HO Ac NH 00 -1 -1 .0 00 ME ti [...] 10 2- 6- 00 06 TO ve NH 27 20 20 07 WN IL 10 17 17 34 8 87 PH 40 AR MA MG CY TA OF BL ET CY NT HI AN A GA 68 04 05 90 [...] 04 05 60 30 00 HO Ac NH 00 -1 -1 .0 00 ME ti [...] NT TA HI B AN A LI 68 04 05 30 15 00 HO Ac SI 00 -1 -1 .0 00 ME ti NO 10 2- 2- 00 06 TO ve NH 27 20 20 07 WN IL 10 17 17 34 8 87 PH 40 AR MA MG CY TA OF BL ET CY NT HI AN A MO 00 04 05 30 30 00 HO Ac RP 40 -1 -1 .0 00 ME ti HI 68 2- 2- 00 02 TO ve NE 31 20 20 01 WN 50 17 17 33 HENDERSON 1 70 PH LF AR MA ER CY 15 OF MG CY NT TA HI BL AN ET A GA 68 03 04 90 30 [...] 50 3- 4- 00 06 TO ve NH 64 20 20 07 WN IL 01 [...] CY 32 NT 5 HI AN A BU 68 02 03 60 30 00 HO Ac NH 00 -0 -1 .0 00 ME ti OP 10 7- 0- 00 06 TO ve IO 19 20 20 08 WN N 90 17 17 09 HC 0 78 PH L AR 75 MA CY MG OF TA BL CY ET NT HI AN A TR 50 02 03 30 30 00 HO Ac AZ 11 -0 -1 .0 00 ME ti OD 10 7- 0- 00 06 TO ve ON 43 20 20 08 WN E 30 17 17 09 50 2 79 PH AR MG MA CY TA BL OF ET CY NT HI AN A ES 68 01 02 30 30 00 HO Ac CI 00 -2 -2 .0 00 ME ti TA 10 0- 4- 00 06 TO ve LO 19 20 20 07 WN NH 70 17 17 28 AM 3 59 [...] TA HI B AN A LI 00 01 02 30 15 00 HO Ac SI 18 -1 -1 .0 00 ME ti NO 50 2- 7- 00 06 TO ve NH 64 20 20 07 WN IL 01 17 17 34 0 87 PH 40 AR MA MG CY TA OF BL ET CY NT HI AN A CA 68 01 02 60 30 00 HO Ac RV 00 -1 -1 .0 00 ME ti ED 10 3- 7- 00 06 TO ve IL 15 20 20 07 WN OL 40 17 17 95 3 08 PH 6. AR 25 MA CY MG OF TA BL CY ET NT HI AN A TI 55 01 02 90 30 00 HO Ac ZA 11 -1 -1 .0 00 ME ti NI 10 2- 7- 00 06 TO ve DI 17 20 20 07 WN NE 91 17 17 74 5 15 PH HC AR L MA 2 CY MG OF TA BL CY ET NT HI AN A MO 00 01 02 30 [...] CY 32 NT 5 HI AN A ES 68 12 01 30 30 00 HO Ac CI 00 -2 -2 .0 00 ME ti TA 10 3- 7- 00 06 TO ve LO 19 20 20 07 WN NH 70 16 17 28 AM 3 59 [...] TA HI B AN A GA 68 12 01 90 30 00 HO Ac BA 00 -2 -2 .0 00 ME ti PE 10 0- 0- 00 06 TO ve NT 00 20 20 07 WN IN 70 16 17 74 3 18 PH 80 AR 0 MA MG CY TA OF BL ET CY NT HI AN A LI 00 12 01 30 15 00 HO Ac SI 18 -1 -1 .0 00 ME ti NO 50 3- 3- 00 06 TO ve NH 64 20 20 07 WN IL 01 [...] ET NT HI AN A MO 00 12 01 30 30 00 HO Ac RP 40 -1 -1 .0 00 ME ti HI 68 3- 3- 00 02 TO ve NE 31 20 20 01 WN 50 16 17 22 HENDERSON 1 81 PH LF AR MA ER CY 15 OF MG CY NT TA HI BL AN ET A BI 00 05 08 3 60 30 WA 71 MC Ac SO 37 -3 -2 .0 L- 22 KE ti NH 80 1- 6- 00 MA 09 WY ve OL 50 20 20 RT 6 [...] -0 -0 .0 L- 29 SH ti NH 50 4- 4- 00 MA 60 ER ve OL 19 20 20 RT 5 OL 05 11 11 RI 9 PH CH TA AR AR RT MA D RA CY TE # 50 10 05 MG 91 TA B BI 00 05 07 3 60 30 WA 71 MC Ac SO 37 -3 -3 .0 L- 22 KE ti NH 80 1- 0- 00 MA 09 WY ve OL 50 20 20 RT 6 E OL 30 11 11 JR -H [address] AR WI Z MA LL 5- CY IA 6. # M 25 F 10 MG 05 91 TA B BI 00 05 07 3 60 30 WA 71 MC Ac SO 37 -3 -0 .0 L- 22 KE ti NH 80 1- 3- 00 MA 09 WY ve OL 50 20 20 RT 6 E OL 30 11 11 JR -H [address] AR WI Z MA LL 5- CY IA 6. # M 25 F 10 MG 05 91 TA B BI 00 05 06 3 60 30 WA 71 MC Ac SO 37 -3 -0 .0 L- 22 KE ti NH 80 1- 6- 00 MA 09 WY ve OL 50 20 20 RT 6 [...] TA # BL ET 10 05 91 Procedures Procedure DOS Code Location Performer Comment BILIRUBIN 09876 GIORGIO MYERS DIRECT 7 MD DAVID,[place] [address] GIORGIO MYERS PHOSPHORU 7 Alexis HERNANDEZ MD,PSC INORGANIC COMPREHEN 54026 GIORGIO MYERS SIVE 7 NATACHA [place] [address] GIORGIO MYERS GLUTAMYLT 7 BOZENA HERNANDEZ MD,PSC GAMMA BLOOD 41199 GIORGIO MYERS COUNT 7 MILTON HERNANDEZ MD,PSC AUTO&AUTO DIFRNTL WBC CHIROPRAC 88864 MELANI POLO TIC 7 MANIPULAT [place] SPINAL 1-2 REGIONS FACE MASK A7031 [facility] STAPLES 7 HOME HOME INTERFACE MEDICAL MEDICAL REPLCMT EQUIPME EQUIPME FULL FACE MASK EA COLLECTIO 36650 [facility] N VENOUS 7 [facility] BLOOD INC INC VENIPUNCT URE HEPATIC 87362 [facility] FUNCTION 7 [facility] PANEL INC INC LIPID 12979 [facility] PANEL 7 [facility] INC INC BASIC 61748 HADREEP MEIER METABOLIC 7 [facility] PANEL INC INC CALCIUM TOTAL CREATINE 09313 [facility] KINASE 7 [facility] TOTAL INC INC CATH PLMT 64834 [facility]IER L HRT & 7 [facility] ARTS INC INC W/NJX & ANGIO IMG S&I ECG 96392 DANNY BEE ROUTINE 7 PHYSICIAN ECG S, PLLC W/LEAST 12 LDS I&R ONLY CREATINE 06132 [facility] ME[facility] KINASE MB 7 [facility] FRACTION INC INC ONLY COMPREHEN 92288 [facility] SIVE 7 [facility] METABOLIC INC INC PANEL CATHETER C1725 [facility] TRANSLUMI 7 [facility] NAL INC INC ANGIOPLAS TY NON-LASER GUIDE C1769 [facility] WIRE 7 [facility] INC INC RADIOLOGI 83859 [facility] C EXAM 7 [facility] CHEST 2 INC INC VIEWS FRONTAL&L ATERAL BLOOD 36381 [facility] COUNT 7 [facility] MEM [facility]OS[facility] COMPLETE INC INC AUTO&[place] [address] [facility] TROPONIN 7 [facility]OS[facility] MEM HOSP QUANTITAT INC INC SASCHA BLOOD 43996 [facility] MEIER COUNT 7 [facility] MEM HOS[facility] COMPLETE INC INC AUTO&[place] [address] [facility] MEIER TROPONIN 7 [facility]OS[facility] QUANTITAT INC INC SASCHA RADIOLOGI 71636 [facility] C EXAM 7 [facility] CHEST 2 INC INC VIEWS FRONTAL&L ATERAL CREATINE 38609 [facility] KINASE MB 7 [facility]OS[facility] FRACTION INC INC ONLY ECG 11471 DANNY BEE ROUTINE 7 PHYSICIAN ECG S, PLLC W/LEAST 12 LDS I&R ONLY COMPREHEN 78485 [facility] SIVE 7 [facility]OS[facility] METABOLIC INC INC PANEL CREATINE 53490 [facility] MEIER KINASE 7 [facility] TOTAL INC INC ECG 08956 [facility]IER ROUTINE 7 [facility] ECG INC INC W/LEAST 12 LDS TRCG ONLY W/O I&R THER 48845 [facility] MEIER PROPH/DX 7 [facility] NJX IV INC INC PUSH SINGLE/1S T SBST/DRUG ECG 01176 [facility] ROUTINE 7 [facility]OS[facility] ECG INC INC W/LEAST 12 LDS TRCG ONLY W/O I&R DRUG TEST [id number] GIORGIO MYERS 6 DAVID TURNER PRESUMP;I PSC NSTRUMENT ED CHEMISTRY ANLYZER FACE MASK A7031 [facility]HO[facility] STAPLES 6 HOME HOME INTERFACE MEDICAL MEDICAL REPLCMT EQUIPME EQUIPME FULL FACE MASK EA FILTER A7038 [facility]HO[facility] STAPLES DISPBL 6 HOME HOME USED MEDICAL MEDICAL W/POS EQUIPME EQUIPME ARWAY PRESSURE DEVICE EVENT C1764 [facility] RECORDER 6 [facility] CARDIAC INC INC IMPLANTAT 75759 [facility] ION 6 [facility] PT-ACTIVA INC INC OZIEL CARDIAC EVENT RECORDER RADIOLOGI 62194 [place] ABRAMS ALL C 6 MEDICAL EXAMINATI IMAGING ON CHEST ASS SINGLE VIEW FRONTAL CT THORAX 64943 DI [facility] ALL 6 MEDICAL W/CONTRAS IMAGING T ASS MATERIAL ECG 37506 [facility] KEITH JR ROUTINE 6 [facility] W/LEAST P 12 LDS I&R ONLY BLOOD 38682 GIORGIO ALVARES COUNT 6 [place] HERNANDEZ MD,PSC AUTO&AUTO DIFRNTL WBC BILIRUBIN 72056 GIORGIO ALAVRES DIRECT 6 [place]IVID[place]NA[place]DE[place] MD,[place] [address] GIORGIO ALVARES PHOSPHORU 6 NATIVIDAD HERNANDEZ MD,PSC INORGANIC COMPREHEN 73720 GIORGIO ALVARES SIVE 6 NATIVIDAD [place]NA[place]DE[place] [address] GIORGIO ALVARES GLUTAMYLT 6 NATIVIDAD HERNANDEZ MD,PSC GAMMA FULL FACE A7030 JHOAN GARCIA MASK 6 HOME [facility] USED MEDICAL W/POS EQUIPME ARWAY PRESS DEVICE EA HEADGEAR A7035 JHOAN GARCIA USED 6 HOME MARTHA W/POSITIV MEDICAL E AIRWAY EQUIPME PRESSURE DEVICE TUBING A7037 JHOAN GARCIA USED WITH 6 HOME MARTHA POSITIVE MEDICAL AIRWAY EQUIPME PRESSURE DEVICE FILTER A7038 JHOAN GARCIA DISPBL 6 HOME MARTHA USED MEDICAL W/[place]X [address] GIORGIO MYERS ANES&/STR 6 Talia HERNANDEZ/ANA MARIA TURNER,PSC TFRML EDRL LMBR/SAC 1 LVL NJX 14480 GIORGIO MYERS ANES&/STR 6 Talia HERNANDEZ/ANA MARIA TURNER,PSC TFRML EDRL LMBR/SAC EA LV CHIROPRAC 33696 POLO POLO TIC 6 [facility] [place] SPINAL 1-2 REGIONS CHIROPRAC 91012 POLO POLO TIC 6 [facility] SPINAL 1-2 REGIONS MRI 85434 [facility] 6 CANAL ORTHOPAED LUMBAR ICS PSC W/O CONTRAST MATERIAL DRUG TEST G0479 GIORGIO MYERS 6 MIRIAM HERNANDEZ PRESUMP;Nadege TURNER,PSC NSTRUMENT ED CHEMISTRY ANLYZER THERAPEUT 77776 HARDEEP HARDEEP IC 6 [facility] INJECTION [place] [address] HARDEEP HARDEEP INFUSION 6 [facility] THERAPY/P INC INC ROPHYLAXI S /DX 1ST TO 1 HR BLOOD 17716 HARDEEP MEIER COUNT 6 [facility] COMPLETE INC INC AUTO&AUTO DIFRNTL WBC RADIOLOGI 29843 HARDEEP HARDEEP C EXAM 6 [facility] CHEST 2 INC INC VIEWS FRONTAL&L ATERAL PRESSURIZ 24559 HARDEEP ALLEN ED/NONPRE 6 [facility] SSURIZED INC INHALATIO N TREATMENT CUL BACT 06491 HARDEEP HARDEEP XCPT 6 [facility] URINE INC INC BLOOD/[place] [address] HARDEEP ALLEN STREPTOCO 6 [facility] CCUS INC GROUP A RADEX 67793 [facility] 6 LUMBOSACR ORTHOPAED AL 2/3 ICS PSC VIEWS RADIOLOGI 42759 [facility] C EXAM 6 MEDICAL CHEST 2 IMAGING VIEWS ASS FRONTAL&L ATERAL ECG 59952 FAITH BRIANGER ROUTINE 6 [facility] ECG MEDICAL W/LEAST GROUP 12 LDS W/I&R CONTINUOU E0601 JHOAN STAPLES S 6 HOME HOME POSITIVE MEDICAL MEDICAL AIRWAY EQUIPME EQUIPME PRESSURE DEVICE RADIOLOGI 20636 [facility] C EXAM 6 MEDICAL [place] CHEST 2 IMAGING VIEWS ASS FRONTAL&L ATERAL ECG 24122 HARDEEP TRACY ROUTINE 6 [facility] W/LEAST P 12 LDS I&R ONLY OUTPATIEN 11385 HARDEEP MEIER T CARDIAC 6 [facility] REHAB INC INC W/CONT ECG MONITORIN G CHIROPRAC 68459 MELANI POLO TIC 6 HUMBERTO HUMBERTO MANIPULAT [place] SPINAL 1-2 [place] [address] GIORGIO ALVARES GLUTAMYLT 6 NATIVIDAD HERNANDEZ MD,PSC GAMMA BILIRUBIN 32497 GIORGIO ALVARES DIRECT 6 [place]IV[place] HERNANDEZ MD,PSC COMPREHEN 06495 GIORGIO THOMASARD SIVE 6 [place]IV[place] [address] GIORGIO THOMASARD PHOSPHORU 6 NATIVID[place] HERNANDEZ MD,PSC INORGANIC BLOOD 90538 GIORGIO ALVARES COUNT 6 NATIVID[place] HERNANDEZ MD,PSC AUTO&AUTO DIFRNTL WBC INJECTION J1040 [facility] SALLIE 6 PHYSICIAN ANDERSEN METHYLPRE S GROUP DNISOLONE ACETATE 80 MG INJECTION J0696 [facility] SALLIE 6 PHYSICIAN ANDERSEN CEFTRIAXO S GROUP NE SODIUM PER 250 MG THERAPEUT 06201 [facility] SALLIE IC 6 PHYSICIAN ANDERSEN PROPHYLAC S GROUP TIC/DX INJECTION SUBQ/IM CREATININ 85166 HARDEEP ROBLES 6 [facility] SOURCE INC INC RENAL 32543 HARDEEP MEIER FUNCTION 6 [facility] PANEL INC INC URNLS DIP 40805 HARDEEP MEIER 6 [facility] STICK/TAB INC INC LET REAGENT AUTO MICROSCOP Y BLOOD 79416 HARDEEP MEIER COUNT 6 [facility] COMPLETE INC INC AUTO&AUTO DIFRNTL WBC PROTEIN 90673 HARDEEP MEIER XCPT 6 [facility] REFRACTOM INC INC ETRY SERUM PLASMA/WH L BLD COLLECTIO 53681 HARDEEP MEIER N VENOUS 6 [facility] BLOOD INC INC VENIPUNCT URE CONTINUOU E0601 JHOAN STAPLES S 6 HOME HOME POSITIVE MEDICAL MEDICAL AIRWAY EQUIPME EQUIPME PRESSURE DEVICE FILTER A7039 JHOAN STAPLES NON 6 HOME HOME DISPBL MEDICAL MEDICAL USED EQUIPME EQUIPME W/POS ARWAY PRESS DEVICE FILTER A7038 JHOAN TAMAYORELL DISPBL 6 HOME HOME USED MEDICAL MEDICAL W/POS EQUIPME EQUIPME ARWAY PRESSURE DEVICE TUBING A7037 JHOAN STAPLES USED WITH 6 HOME HOME POSITIVE MEDICAL MEDICAL AIRWAY EQUIPME EQUIPME PRESSURE DEVICE FACE MASK A7031 JHOAN TAMAYORELL 6 HOME HOME INTERFACE MEDICAL MEDICAL REPLCMT EQUIPME EQUIPME FULL FACE MASK EA CREATININ 85818 HARDEEP ROBLES 6 [facility] SOURCE INC INC COMPREHEN 46912 HARDEEP MEIER SIVE 6 [facility] METABOLIC INC INC PANEL COLLECTIO 58547 HARDEEP MEIER N VENOUS 6 [facility] BLOOD INC INC VENIPUNCT URE NON-INVAS 01214 [facility] ALL 6 MEDICAL PHYSIOLOG IMAGING IC STD ASS EXTREMITY ART 2 LEVEL CHIROPRAC 38957 MELANI POLO TIC 6 HUMBERTO HUMBERTO MANIPULAT [place] SPINAL 1-2 REGIONS RADEX 76297 POLO POOL SPINE 6 HUMBERTO HUMBERTO CERVICAL 2 OR 3 VIEWS DRUG TEST G0479 GIORGIO MYERS 6 DAVID, PRESUMP;I ,PSC NSTRUMENT ED CHEMISTRY ANLYZER ECHO 52517 [facility] R[facility] 6 MEDICAL 2D SERV W/WOM-MOD FOUNDATIO E COMPL N SPEC&COLR D BASIC 86016 HARDEEP MEIER METABOLIC 6 [facility] PANEL INC INC CALCIUM TOTAL DRUG TST G0477 HARDEEP MEIER PRESUMP;C 6 [facility] PBL BEING INC INC READ DC OPT OBV ONLY OBSERVATI 61077 [facility] FRYMAN ON CARE 6 PHYSICIAN EUG DISCHARGE S GROUP MANAGEMEN T SBSQ 33920 [facility] PHYSICIAN EUG ON S GROUP CARE/DAY 15 MINUTES RADEX HIP 00083 [facility] ALL 6 MEDICAL UNILATERA IMAGING L WITH ASS PELVIS 1 VIEW INITIAL 54837 [facility] FRAN OBSERVATI 6 PHYSICIAN EUG ON S GROUP CARE/DAY 50 MINUTES RADIOLOGI 55137 [facility] ALL C EXAM 6 MEDICAL CHEST 2 IMAGING VIEWS ASS FRONTAL&L ATERAL POLYSOM 58742 HARDEEP HARDEEP 6/>YRS 6 [facility] SLEEP INC INC W/CPAP 4/> [place] NJX [address]39 GIORGIO MYERS ANES&/STR 6 MIRIAM HERNANDEZ/ANA MARIA TURNER,PSC TFRML EDRL LMBR/SAC 1 LVL NJX 65380 GIORGIO MYERS ANES&/STR 6 MIRIAM HERNANDEZ/ANA MARIA TURNER,[facility] TFRML EDRL LMBR/SAC EA LV FACE MASK A7031 JHOAN STAPLES 6 HOME HOME INTERFACE MEDICAL MEDICAL REPLCMT EQUIPME EQUIPME FULL FACE MASK EA FILTER A7038 JHOAN STAPLES DISPBL 6 HOME HOME USED MEDICAL MEDICAL W/POS EQUIPME EQUIPME ARWAY PRESSURE DEVICE TUBING A7037 JHOAN STAPLES USED WITH 6 HOME HOME POSITIVE MEDICAL MEDICAL AIRWAY EQUIPME EQUIPME PRESSURE DEVICE INJECTION J0696 [facility] GUNNER 6 PHYSICIAN KETAN CEFTRIAXO S GROUP NE SODIUM PER 250 MG INJECTION J1040 [facility] GUNNER 6 PHYSICIAN KETAN METHYLPRE S GROUP DNISOLONE ACETATE 80 MG THERAPEUT 18347 [facility] GUNNER IC 6 PHYSICIAN KETAN PROPHYLAC S GROUP TIC/DX INJECTION SUBQ/IM CONTINUOU E0601 JHOAN STAPLES S 5 HOME HOME POSITIVE MEDICAL MEDICAL AIRWAY EQUIPME EQUIPME PRESSURE DEVICE CONTINUOU E0601 JHOAN STAPLES S 5 HOME HOME POSITIVE MEDICAL MEDICAL AIRWAY EQUIPME EQUIPME PRESSURE DEVICE ECG 45051 HARDEEP MEIER ROUTINE 5 [facility] ECG INC INC W/LEAST 12 LDS TRCG ONLY W/O I&R ECG 67368 CARDIOVAS JOSE ROUTINE [address] [facility] ECG CONSULTAN W/LEAST TS O 12 LDS I&R ONLY ECG 95732 HARDEEP KEITH JR ROUTINE 5 [facility] W/LEAST P 12 LDS I&R ONLY ECG 69600 HARDEEP MEIER ROUTINE 5 [facility] ECG INC INC W/LEAST 12 LDS TRCG ONLY W/O I&R COMPREHEN 31253 HARDEEP MEIER SIVE 5 [facility] [place] [address] HARDEEP MEIER 2 VIEWS 5 [facility] FRNT & INC INC LAT APICAL LORDOTIC PX COLLECTIO 31349 HARDEEP MEIER N VENOUS 5 [facility] BLO[place] [address] HARDEEP MEIER TROPONIN 5 [facility] QUANTITAT INC INC SASCHA BLOOD 22237 HARDEEP MEEIR COUNT 5 [facility] COMPLETE INC INC AUTO&AUTO DIFRNTL WBC FILTER A7038 JHOAN JHOAN DISPBL 5 HOME HOME USED MEDICAL MEDICAL W/POS EQUIPME EQUIPME ARWAY PRESSURE DEVICE FACE MASK A7031 JHOAN JHOAN 5 HOME HOME INTERFACE MEDICAL MEDICAL REPLCMT EQUIPME EQUIPME FULL FACE MASK EA ECG 28538 HARDEEP MEIER ROUTINE 5 [facility] ECG INC INC W/LEAST 12 LDS TRCG ONLY W/O I&R CONTINUOU E0601 JHOAN JHOAN S 5 HOME HOME POSITIVE MEDICAL MEDICAL AIRWAY EQUIPME EQUIPME PRESSURE DEVICE INJECTION J1040 HARDEEP MARTINO 5 [facility] DNISOLONE ACETATE 80 MG INJECTION J0696 HARDEEP MARTINO 5 [facility] NE SODIUM PER 250 MG THERAPEUT 85543 HARDEEP MARTINO IC 5 [facility] TIC/DX INJECTION SUBQ/IM FULL FACE A7030 JHOAN JHOAN MASK 5 HOME HOME USED MEDICAL MEDICAL W/POS EQUIPME EQUIPME ARWAY PRESS DEVICE EA FILTER A7038 JHOAN JHOAN DISPBL 5 HOME HOME USED MEDICAL MEDICAL W/POS EQUIPME EQUIPME ARWAY PRESSURE DEVICE TUBING A7037 JHOAN STAPLES USED WITH 5 HOME HOME POSITIVE MEDICAL MEDICAL AIRWAY EQUIPME EQUIPME PRESSURE DEVICE HEADGEAR A7035 JHOAN JHOAN USED 5 HOME HOME W/POSITIV MEDICAL MEDICAL E AIRWAY EQUIPME EQUIPME PRESSURE DEVICE HUMDIFIR E0562 JHOAN JHOAN HEATED 5 HOME HOME USED MEDICAL MEDICAL W/POS EQUIPME EQUIPME ARWAY PRESSURE DEVICE CONTINUOU E0601 JHOAN JHOAN S 5 HOME HOME POSITIVE MEDICAL MEDICAL AIRWAY EQUIPME EQUIPME PRESSURE DEVICE FILTER A7039 JHOAN JHOAN NON 5 HOME HOME DISPBL MEDICAL MEDICAL USED EQUIPME EQUIPME W/POS ARWAY PRESS DEVICE COLLECTIO 63758 HARDEEP MEIER N VENOUS 5 [facility] BLOOD INC INC VENIPUNCT URE ECG 97396 CARDIOVAS JOSE ROUTINE 5 CULAR MAT ECG CONSULTAN W/LEAST TS O 12 LDS I&R ONLY ECG 28266 HARDEEP MEIER ROUTINE 5 [facility] ECG INC INC W/LEAST 12 LDS TRCG ONLY W/O I&R BASIC 15282 HARDEEP MEIER METABOLIC 5 [facility] PANEL INC INC CALCIUM TOTAL THERAPEUT 88852 HARDEEP DENA IC 5 [facility] TIC/DX INJECTION SUBQ/IM INJECTION J1100 HARDEEP FRYMAN 5 [facility] SONE SODIUM PHOSPHATE 1 MG ECG 93498 HARDEEP MEIER ROUTINE 5 [facility] ECG INC INC W/LEAST 12 LDS TRCG ONLY W/O I&R THERAPEUT 10616 [place] ANTONY IC PX 1/> 5 GAR AREAS CHIROPRAC EACH 15 TIC CENTE MIN EXERCISES ECG 33505 CARDIOVAS JOSE ROUTINE 5 CULAR MAT ECG CONSULTAN W/LEAST TS O 12 LDS I&R ONLY CHIROPRAC 42988 [place] ANTONY TIC 5 GAR MANIPLTV CHIROPRAC TX TIC CENTE EXTRASPIN AL 1/> REGION CHIROPRAC 55386 [place] ANTONY TIC 5 GAR MANIPULAT CHIROPRAC SASCHA TX TIC CENTE SPINAL 1-2 REGIONS APPL 36358 [place] ANTONY MODALITY 5 GAR 1/> AREAS CHIROPRAC TRACTION TIC CENTE MECHANICA L CARTOON ANIMATOR STDY 98667 HARDEEP MEIER UNATND 5 [facility] W/HRT INC INC RATE/O2 SAT/RESP/ CARTOON ANIMATOR TIME SBSQ 69513 [facility] 5 CULAR MAT CARE/DAY CONSULTAN 25 TS O MINUTES CATH PLMT 62890 CARDIOVAS JOSE L HRT & 5 CULAR MAT ARTS CONSULTAN W/NJX & TS O ANGIO IMG S&I INITIAL 37811 [facility] 5 CULAR MAT CARE/DAY CONSULTAN 70 TS O MINUTES SBSQ 70281 [facility] NELDA OBSERVATI 5 PHYSICIAN KETAN ON S GROUP CARE/DAY 15 MINUTES ECG 95717 HARDEEP KEITH JR ROUTINE 5 [facility] W/LEAST P 12 LDS I&R ONLY RADIOLOGI 20815 [facility] TH[facility] C 5 MEDICAL [place] EXAMINATI IMAGING ON CHEST ASS SINGLE VIEW FRONTAL INITIAL 31244 [facility] NELDA OBSERVATI 5 PHYSICIAN KETAN ON S GROUP CARE/DAY 50 MINUTES RADEX 30690 [facility] TRA SPINE 5 [place] LUMBOSACR ORTHOPAED AL 2/3 [facility] VIEWS RADEX 78012 [facility] TRA SPINE 5 [place] LUMBOSA[place] ORTHOPAED AL 2/3 [facility] VIEWS RADEX 69675 [facility] TRA SPINE 5 [place] LUM[place] ORTHOPAED AL 2/3 [facility] VIEWS FUSION OR 8162 [facility] REFUSION [address] [place] [address] OF 2-3 VERTEBRAE EXCISION 7770 [facility] [address] [place] [address] FOR GRAFT UNSPECIFI ED SITE LUMBAR 8107 [facility] LUMBOSACR [address] [place] [address] AL FUSION POST COLUMN POST TECH EXCISION [address] INTERVERT EBRAL DISC POSTERIOR 07381 [facility] TRA 5 [place] NON-SEGME ORTHOPAED NTAL [facility] INSTRUMEN TATION ARTHRODES 63334 [facility] TRA IS 5 [place] POSTERIOR ORTHOPAED [facility] INTERBODY LUMBAR ANESTHESI 65498 ANESTHESI EASTMAN A LUMBAR 5 A ANDERSEN REGION ASSOCIATE NOS S PSC ANTIBODY 17030 [facility] SCREEN 5 N N RBC EACH COMMUNTIY COMMUNTIY SERUM HOSPITA HOSPITA TECHNIQUE BLOOD 64290 [facility] TYPING 5 N N SEROLOGIC COMMUNTIY COMMUNTIY ABO HOSPITA HOSPITA BLOOD 63021 [facility] TYPING 5 N N SEROLOGIC COMMUNTIY COMMUNTIY RH (D) HOSPITA HOSPITA COMPATIBI 84768 [facility] LITY EACH 5 N N UNIT COMMUNTIY COMMUNTIY IMMEDIATE HOSPITA HOSPITA SPIN TECHNIQUE COLLECTIO 64825 [facility] N VENOUS 5 N N BLOOD COMMUNTIY COMMUNTIY VENIPUNCT HOSPITA HOSPITA URE COLLECTIO 53293 [facility] N VENOUS 5 N N BLOOD COMMUNTIY COMMUNTIY VENIPUNCT HOSPITA HOSPITA URE RADIOLOGI 45031 [facility] C EXAM 5 N N CHEST 2 COMMUNTIY COMMUNTIY VIEWS HOSPITA HOSPITA FRONTAL&L ATERAL MRI 98136 [facility] TRA SPINAL 5 [place] CANAL ORTHOPAED LUMBAR [facility] W/O CONTRAST MATERIAL BLOOD 35068 [facility] COUNT 5 N N COMPLETE COMMUNTIY COMMUNTIY AUTOMATED HOSPITA HOSPITA BASIC 58961 [facility] METABOLIC 5 N N PANEL COMMUNTIY COMMUNTIY CALCIUM HOSPITA HOSPITA TOTAL ECG 93607 [facility] ROUTINE 5 N N ECG COMMUNTIY COMMUNTIY W/LEAST HOSPITA HOSPITA 12 LDS TRCG ONLY W/O I&R THERAPEUT 27427 HARDEEP MEIER IC 5 [facility] PROPHYLAC INC INC TIC/DX INJECTION SUBQ/IM IAADI 32502 HARDEEP MEIER INFLUENZA 5 [facility] B VIRUS INC INC IAADI 78194 HARDEEP MEIER INFFLUENZ 5 [facility] A A VIRUS INC INC COMPREHEN 18976 HARDEEP MEIER SIVE 5 [facility] METABOLIC INC INC PANEL PRESSURIZ 19736 HARDEEP MEIER ED/NONPRE 5 [facility] SSURIZED INC INC INHALATIO N TREATMENT BLOOD 28273 HARDEEP MEIER COUNT 5 [facility] COMPLETE INC INC AUTO&AUTO DIFRNTL WBC RADIOLOGI 99618 HARDEEP MEIER C EXAM 5 [facility] CHEST 2 INC INC VIEWS FRONTAL&L ATERAL DXA BONE 19572 GIORGIO PATEL 5 NATIVIDAD PET STUDY 1/> SITES AXIAL SKEL RADEX 33265 [facility] TRA SPINE 5 [place] LUMBOSACR ORTHOPAED AL 2/3 [facility] VIEWS THERAPEUT 87178 HARDEEP MEIER IC 5 [facility] PROPHYLAC INC INC TIC/DX INJECTION SUBQ/IM PRESSURIZ 98209 HARDEEP MEIER ED/NONPRE 5 [facility] SSURIZED INC INC INHALATIO N TREATMENT FLUOR 00831 GIORGIO PEMBERTON NEEDLE/CA 5 GANESH HERNANDEZ MD,[facility] SPINE/PAR ASPINAL DX/[place] NJX 76716 STONE STONE DX/THER [address] [facility] SURGERY EPIDURAL/ CENTER CENTER SUBARACH LUMBAR/SA CRAL INJECTION J1100 [facility] NELDA 5 PHYSICIAN KETAN DEXAMETHO S GROUP SONE SODIUM PHOSPHATE 1 MG THERAPEUT 63740 [facility] NELDA IC 5 PHYSICIAN KETAN PROPHYLAC S GROUP TIC/DX INJECTION SUBQ/IM FLUOR 04596 GIORGIO PEMBERTON NEEDLE/CA 4 GANESH HERNANDEZ MD,[facility] SPINE/PAR ASPINAL DX/[place] NJX 32147 GIORGIO PEMBERTON DX/THER 4 GANESH HERNANDEZ MD,[facility] EPIDURAL/ SUBARACH LUMBAR/SA CRAL RADEX 61583 DI THOMAS [facility] 4 MEDICAL [place] MINIMUM 2 IMAGING VIEWS ASS APPLICATI 70462 HARDEEP MEIER ON FINGER 4 [facility] SPLINT INC INC STATIC SIMPLE 69307 [facility] REPAIR 4 JAVIER SCALP/NEC EMERGENCY K/AX/IVETH PHYS T/TRUNK 2.5CM/< URNLS DIP 55916 HARDEEP MEIER 4 [facility] LET RGNT P P NON-AUTO W/O MICRSCP PETE 11986 HARDEEP PINA JR POST-VOID 4 [facility] RESIDUAL P URINE&/BL ADDER CAP THERAPEUT 52981 [facility] NELDA IC 4 PHYSICIAN KETAN PROPHYLAC S GROUP TIC/DX INJECTION SUBQ/IM INJECTION J1040 [facility] NELDA 4 PHYSICIAN KETAN METHYLPRE S GROUP DNISOLONE ACETATE 80 MG SUSCEPTIB 16017 HARDEEP MEIER LTY STDY 4 [facility] ANTIMICRB INC INC IAL MICRO/AGA R DILUTJ CULTURE 30891 HAREDEP MEIER BACTERIAL 4 [facility] INC INC QUANTTATI VE COLONY COUNT URINE CULTURE 16551 HARDEEP MEIER BCT 4 [facility] ISOL&PRSM INC INC PTV ID ISOLATE EA URINE THERAPEUT 93894 [facility] IC 4 PHYSICIAN PHYSICIAN PROPHYLAC S GROUP S GROUP TIC/DX INJECTION SUBQ/IM INJECTION J1040 [facility] NELDA 4 PHYSICIAN KETAN METHYLPRE S GROUP DNISOLONE ACETATE 80 MG INJECTION J1040 [facility] NELDA 4 PHYSICIAN KETAN METHYLPRE S GROUP DNISOLONE ACETATE 80 MG THERAPEUT 27270 [facility] NELDA IC 4 PHYSICIAN KETAN PROPHYLAC S GROUP TIC/DX INJECTION SUBQ/IM BASIC 86288 HARDEEP MEIER METABOLIC 4 [facility] PANEL INC INC CALCIUM TOTAL DRUG SCR G0434 JEREMÍAS HAM JEREMÍAS HAM NOT 4 CHROMATOG RAPHIC; ANY NUMBER PT ENC RADEX 88400 MARTHA MARTHA HAND 2 4 [place] VIEWS RADEX 42204 HARDEEP MEIER HAND 4 [facility] MINIMUM 3 INC INC VIEWS RADEX HIP 29021 CINTRON TRA CINTRON TRA 4 UNILATERA L COMPLETE MINIMUM [place] [address] ALPHONSE CUNHA 1/> AREAS 4 MAXIMO MAXIMO EACH 15 MIN NEUROMUSC REEDUCA APPL 59733 [facility] MODALITY 4 MAXIMO MAXIMO 1/> [place] [address] ALPHONSE CUNHA 1/> AREAS 4 MAXIMO MAXIMO EACH 15 MINUTES MASSAGE CHIROPRAC 80575 ALPH[facility] TIC 4 MAXIMO MAXIMO MANIPULAT [place] SPINAL 3-4 REGIONS CHIROPRAC 67086 ALPHONSE CUHNA TIC 4 MAXIMO MAXIMO MANIPULAT [place] SPINAL 3-[place] [address] ALPHONSE CUNHA 1/> AREAS 4 MAXIMO MAXIMO EACH 15 MINUTES MASSAGE APPL 62634 ALPH[facility] MODALITY 4 MAXIMO MAXIMO 1/> ARE[place] [address] ALPHONSE CUNHA 1/> AREAS 4 MAXIMO MAXIMO EACH 15 MIN NEUROMUSC REEDUCA MRI 86488 CINTRON TRA CINTRON TRA SPINAL 4 CANAL LUMBAR W/O CONTRAST MATERIAL RADEX 32883 CINTRON TRA CINTRON TRA SPINE 4 LUMBOSACR AL 2/3 VIEWS PETE 26224 YOVANI JR YOVANI JR POST-VOID 4 DEB DEB ING RESIDUAL URINE&/BL ADDER CAP COMPREHEN 88892 HARDEEP MEIER SIVE 4 [facility] METABOLIC INC INC PANEL CULTURE 94360 HARDEEP MEIER BACTERIAL 4 [facility] INC INC QU[place]TTAT[place] [address] HARDEEP MEIER THYROXINE 4 [facility] [place] [address] HARDEEP MEIER THYROID 4 [facility] STIMULATI INC INC NG HORMONE TSH LIPID 79066 HARDEEP MEIER PANEL 4 [facility] INC INC HEMOGLOBI 70004 HARDEEP MEIER N 4 [facility] HOSP GLYCOSYLA INC INC OZIEL A1C BLOOD 64391 HARDEEP WARD LIS COUNT 4 [facility] COMPLETE INC AUTO&[place] [address] HARDEEP MEIER INFUSION 4 [facility] H[facility] THERAPY/P INC INC ROPHYLAXI S /DX 1ST TO 1 HR THERAPEUT 14611 HARDEEP MEIER IC 4 [facility] INJECTION INC INC IV PUSH EACH NEW DRUG INJECTION J2405 HARDEEP MEIER 4 [facility] ONDANSETR INC INC ON HCL PER 1 MG CUL BACT 10543 HARDEEP MEIER XCPT 4 [facility] URINE INC INC BLOOD/[place] [address] HARDEEP MEIER STREPTOCO 4 [facility] CCUS INC INC GROUP A IAADI 78249 HARDEEP MEIER INFFLUENZ 4 [facility] A A VIRUS INC INC IAADI 80451 HARDEEP MEIER INFLUENZA 4 [facility] B VIRUS INC INC THERAPEUT 87327 HARDEEP MEIER IC 4 [facility] PROPHYLAC INC INC TIC/DX INJECTION SUBQ/IM RADEX 60196 HARDEEP MEIER SPINE 4 [facility] THORACIC INC INC 2 VIEWS ANESTHESI 34884 PATSY & Farrukh ROGERS 1 KEN, VANDANA RADHA INTRAORAL PLLC WITH BIOPSY NOS BASIC 90579 [facility] METABOLIC 1 DIAGNOSTI DIAGNOSTI [place] [address] [facility] THYROID 1 DIAGNOSTI DIAGNOSTI STIMULATI CS CS NG HORMONE TSH LIPID 65877 [facility] PANEL 1 DIAGNOSTI DIAGNOSTI CS CS LIPOPROTE 75067 [facility] IN DIRECT 1 DIAGNOSTI DIAGNOSTI CS CS MEASUREME NT LDL CHOLESTER OL Encounters Encounter Start End Date Code Location Performer Type Date OFFICE 04846 GIORGIO MYERS OUTMICHELLE 7 7 Christy HERNANDEZ VISIT ,PSC 15 MINUTES OFFICE 20998 GIORGIO ELIZABETH 7 7 Christy HERNANDEZ VISIT ,PSC 25 MINUTES HOSPITAL HARDEEP - 7 7 [facility] OUTPATIEN [facility] T HOSPITAL HARDEEP - 7 7 [facility] OUTPATIEN [facility] T EMERGENCY 55078 DANNY BEE DEPT 7 7 PHYSICIAN VISIT S, PLLC HIGH SEVERITY& THREAT FUN EMERGENCY 06603 [facility]EP 7 [facility] VISIT HIGH/URGE NT SEVERITY HOSPITAL HARDEEP - 7 7 [facility] OUTPATIEN [facility] T EMERGENCY 58069 DANNY BEE DEPT 7 7 PHYSICIAN VISIT S, PLLC HIGH SEVERITY& THREAT FUNCJ EMERGENCY 55503 HARDEEP 7 7 [facility] T VISIT HIGH/URGE NT SEVERITY OFFICE 97058 [facility] SRIVASTAV OUTMICHELLE 7 7 PHYSICIAN A T VISIT S GROUP 25 MINUTES HOSPITAL HARDEEP - 7 7 [facility] OUTPATIEN [facility] T OFFICE 31960 GIORGIO ELIZABETH 6 6 DAVID TURNER T VISIT PSC 25 MINUTES HOSPITAL HARDEEP - 6 6 [facility] OUTPATIEN INC T OFFICE 21326 [facility] JOSE OUTMICHELLE 6 6 PHYSICIAN DEIDRE T VISIT S GROUP 25 MINUTES EMERGENCY 19191 DANNY RENAE DEPT 6 6 PHYSICIAN U VAMSHI VISIT [facility] HIGH SEVERITY& [facility] OFF[facility] 83410 [facility] OUTPATIEN 6 6 PHYSICIAN T VISIT S GROUP 25 MINUTES OFFICE 48199 ALVARES ALVARES OUTPATIEN 6 6 NATIVIDAD HERNANDEZ T VISIT ,PSC 25 MINUTES OFFICE 48033 YARI CINTRON OUTPATIEN 6 6 T VISIT ORTHOPAED 15 ICS PSC MINUTES OFFICE 42231 GIORGIO MYERS OUTPATIEN 6 6 MIRIAM HERNANDEZ T VISIT ,PSC 25 MINUTES EMERGENCY 47888 DANNY ANDRADE, 6 6 PHYSICIAN JR MATIAS [facility]OLD [facility] T VISIT HIGH/URGE NT SEVERITY EMERGENCY 79511 HARDEEP ALLEN 6 6 [facility] DEPART[facility] T VISIT MODERATE SEVERITY [facility]OSPITAL [facility] - 6 6 [facility] OUTPATIEN INC T OFFICE 75256 [facility] CINTRON OUTPATIEN 6 6 T VISIT ORTHOPAED 15 ICS PSC MINUTES OFFICE 02775 FAITHChristy WOOTEN OUTPATIEN 6 6 HEALTH JAM T NEW 45 MEDICAL MINUTES GROUP OFFICE 15030 [facility] SALLIE OUTPATIEN 6 6 PHYSICIAN ANDERSEN T VISIT S GROUP 15 MINUTES EMERGENCY 25048 DANNY LUTZ DEPT [address] [facility] HIGH SEVERITY& [facility] - 6 6 [facility] OUTPATIEN INC T OFFICE 08825 GIORGIO THOMASARD OUTPATIEN 6 6 NATIVIDAD HERNANDEZ T VISIT ,PSC 25 MINUTES OFFICE 58269 SHAMAR HERZOG OUTPATIEN 6 6 MEDICAL T VISIT SERV 15 FOUNDATIO MINUTES N OFFICE 65236 [facility] SALLIE OUTPATIEN 6 6 PHYSICIAN ANDERSEN T VISIT S GROUP 15 MINUTES HOSPITAL [facility] - 6 6 [facility] OUTPATIEN INC T OFFICE 10554 [facility] JOSE OUTPATIEN 6 6 PHYSICIAN MAT T VISIT S GROUP 25 MINUTES HOSPITAL [facility] - 6 6 [facility] OUTPATIEN INC T [facility]OSPITAL [facility] - 6 6 [facility] OUTPATIEN INC T OFFICE 82718 [facility] JOSE OUTPATIEN 6 6 PHYSICIAN MAT T VISIT S GROUP 25 MINUTES OFFICE 82279 MELANI CORDOVAGUSON OUTPATIEN 6 6 HUMBERTO HUMBERTO T NEW 20 MINUTES OFFICE 21893 GIORGIO MYERS OUTPATIEN 6 6 DAVID, T VISIT ,PSC 25 MINUTES HOSPITAL [facility] - 6 6 [facility] OUTPATIEN INC T OFFICE 48687 [place] SANCHEZ MINO OUTPATIEN 6 6 MEDICAL T NEW 45 SERV MINUTES FOUNDATIO N EMERGENCY 83613 DANNY LUTZ 6 6 PHYSICIAN KETAN DEPARTMEN S, PLLC T VISIT HIGH/URGE NT SEVERITY [facility]OSP[facility] - 6 6 [facility] OUTPATIEN INC T OFFICE 67125 ADELAIDE LAM MAR CONSULTAT 6 6 ION NEUROSCIE NEW/ESTAB NCES CENT PATIENT 40 MIN OFFICE 76498 [facility] GUNNER OUTPATIEN 6 6 PHYSICIAN KETAN T VISIT S GROUP 15 MINUTES OFFICE 49107 GIORGIO MYERS OUTPATIEN 5 5 DAVID TURNER MIRIAM T VISIT PSC 25 MINUTES HOSPITAL [facility] - 5 5 [facility] OUTPATIEN INC T OFFICE 43444 CARDIOVAS JOSE OUTPATIEN 5 5 CULAR MAT T VISIT CONSULTAN 25 TS O MINUTES EMERGENCY 37891 HARDEEP 5 5 [facility] DEPARTMEN INC T VISIT MODERATE SEVERITY [facility] - 5 5 [facility] OUTPATIEN INC T EMERGENCY 71048 DANNY SANDHU DEPT 5 5 PHYSICIAN FOR VISIT S, PLLC HIGH SEVERITY& THREAT [facility] - 5 5 [facility] OUTPATIEN INC T OFFICE 44106 HARDEEP MARTINO OUTPATIEN 5 5 [facility] T VISIT HOSPITAL 15 MINUTES [facility]OSPITAL [facility] - 5 5 [facility] OUTPATIEN INC T OFFICE 50934 CARDIOVAS JOSE OUTPATIEN 5 5 CULAR MAT T VISIT CONSULTAN 25 TS O MINUTES OFFICE 19867 HARDEEP FERNANDES OUTPATIEN 5 5 [facility] T VISIT [facility] 15 MINUTES [facility] HAR[facility] - 5 5 [facility] OUTPATIEN INC T OFFICE 79232 [place] AN[place]Y OUTPATIEN 5 5 GAR T VISIT CHIROPRAC 15 TIC CENTE MINUTES OFFICE 63002 CARDIOVAS JOSE OUTPATIEN 5 5 CULAR MAT T VISIT CONSULTAN 25 TS O MINUTES [facility] - 5 5 [facility] OUTPATIEN INC T EMERGENCY 93951 DANNY CHENG 5 5 PHYSICIAN EMMY DEPARTMEN S, [facility] T VISIT HIGH/URGE NT SEVERITY OFFICE 76525 HARDEEP MARTINO OUTPATIEN 5 5 [facility] T VISIT HOSPITAL 15 MINUTES [facility] [place] [id number] 5 HOSPITAL INPATIENT [facility] 5 5 N [facility] 5 5 N [facility] 02659 HARDEEP 5 5 MEM [facility] T VISIT MODERATE SEVERITY [facility]OSP[facility] - [facility] 5 [facility] T OFFICE 71804 [facility] 5 5 [place] [facility] 15 [facility] MINUTES EMERGENCY 01494 [facility] 5 5 [facility]/MODER SEVERITY EMERGENCY 85160 [facility] DILLON 5 5 [facility] T VISIT P MODERATE SEVERITY HOSPITAL [facility] - 5 5 [facility] T OFFICE 28773 [facility] NELDA OUTPATIEN 5 5 PHYSICIAN KETAN T VISIT S GROUP 10 MINUTES OFFICE 24597 [facility] FRYMAN OUTPATIEN 5 5 PHYSICIAN EUG T VISIT S GROUP 15 MINUTES EMERGENCY 42672 [facility] 4 4 [facility] HIGH/URGE NT SEVERITY [facility]OSP[facility] - 4 4 [facility] INC T EMERGENCY 35067 [facility] 4 4 [facility] EMERGENCY T VISIT PHYS MODERATE SEVERITY OFFICE 60025 [facility] NELDA OUTPATIEN 4 4 PHYSICIAN KETAN T VISIT S GROUP 15 MINUTES HOSPITAL [facility] - 4 4 [facility] HOSPITAL HAR[facility] 4 4 [facility] INC T OFFICE 96824 [facility] OUTPATIEN 4 4 PHYSICIAN T VISIT S GROUP 15 MINUTES OFFICE 78243 [facility] OUT[facility] 4 4 T NEW 45 MINUTES HOSPITAL [facility] - 4 4 [facility] T EMERGENCY 65010 [facility] NELDA [address] [facility] T VISIT MODERATE SEVERITY EMERGENCY 91953 [facility] 4 4 [facility]/MODER SEVERITY OFFICE 07251 [facility] OUTPATIEN 4 4 PHYSICIAN T NEW 20 S GROUP MINUTES OFFICE 67938 [facility] OUTPATIEN 4 4 T VISIT 25 MINUTES OFFICE 34420 [facility] OUTPATIEN 4 4 MAXIMO MAXIMO T NEW 30 MINUTES OFFICE 89533 [facility] CONSULTAT 4 4 ION NEW/ESTAB PATIENT 40 MIN OFFICE 48787 YOVANI PINA JR OUTPATIEN 4 4 DEB DEB T NEW 20 MINUTES OFFICE 85736 NELDA LUTZ OUTPATIEN 4 4 KETAN KETAN T VISIT 15 MINUTES OFFICE 54643 NELDA LUTZ OUTPATIEN 4 4 KETAN KETAN T VISIT 10 MINUTES HOSPITAL [facility] - 4 4 [facility] T EMERGENCY 87389 [facility] 4 4 [facility] T VISIT MODERATE SEVERITY [facility]OSP[facility] - 4 4 [facility] T EMERGENCY 71600 CHERY PINEDA 4 4 EMERGENCY DEPARTMEN SERVICES T VISIT HIGH/URGE NT SEVERITY [facility]OSP[facility] - 4 4 [facility] T EMERGENCY 01205 [facility] 4 4 [facility] T VISIT LOW/MODER SEVERITY OFFICE 04269 JOSE JOSE OUTPATIEN 1 1 CANDICE CANDICE T VISIT 15 MINUTES
--- OUTSIDE RECORDS SUMMARY | 2017-03-17 07:39 | External Medical Summary Rpt ---
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 [facility] THOMAS C 5 [facility] [place] EXAMINATI IMAGING ON CHEST ASS SINGLE VIEW FRONTAL INITIAL 94839 [facility] NELDA OBSERVATI 5 PHYSICIAN KETAN ON S GROUP CARE/DAY 50 MINUTES RADEX 54732 [facility] TRA SPINE 5 [place] LUMBOSACR ORTHOPAED AL 2/3 [facility] VIEWS RADEX 28913 [facility] TRA SPINE 5 [place] LUMBOSACR ORTHOPAED AL 2/3 [facility] VIEWS RADEX 88803 [facility] TRA SPINE 5 [place] LUMBOSA[place] ORTHOPAED AL 2/3 [facility] VIEWS FUSION [place] 8162 [facility] REFUSION [address] [place] [address] OF 2-3 VERTEBRAE EXCISION 7770 [facility] OF BONE [address] [place] [address] FOR GRAFT UNSPECIFI ED SITE LUMBAR 8107 [facility] LUMBOSACR [address] [place] [address] AL FUSION POST COLUMN POST TECH EXCISION [address] INTERVERT EBRAL DISC POSTERIOR 74998 [facility] TRA 5 [place] NON-SEGME ORTHOPAED NTAL [facility] INSTRUMEN TATION ARTHRODES 07025 [facility] TRA IS 5 [place] POSTERIOR ORTHOPAED [facility] INTERBODY LUMBAR ANESTHESI 26771 ANESTHESI EASTMAN A LUMBAR 5 A ANDERSEN REGION ASSOCIATE NOS S PSC ANTIBODY 86701 [facility] SCREEN 5 N N RBC EACH COMMUNTIY COMMUNTIY SERUM HOSPITA HOSPITA TECHNIQUE BLOOD 37697 [facility] TYPING 5 N N SEROLOGIC COMMUNTIY COMMUNTIY ABO HOSPITA HOSPITA BLOOD 84419 [facility] TYPING 5 N N SEROLOGIC COMMUNTIY COMMUNTIY RH (D) HOSPITA HOSPITA COMPATIBI 17438 [facility] LITY EACH 5 N N UNIT COMMUNTIY COMMUNTIY IMMEDIATE HOSPITA HOSPITA SPIN TECHNIQUE COLLECTIO 40633 [facility] N VENOUS 5 N N BLOOD COMMUNTIY COMMUNTIY VENIPUNCT HOSPITA HOSPITA URE COLLECTIO 47249 [facility] N VENOUS 5 N N BLOOD COMMUNTIY COMMUNTIY VENIPUNCT HOSPITA HOSPITA URE RADIOLOGI 53798 [facility] C EXAM 5 N N CHEST 2 COMMUNTIY COMMUNTIY VIEWS HOSPITA HOSPITA FRONTAL&L ATERAL MRI 87774 [facility] TRA SPINAL 5 [place] CANAL ORTHOPAED LUMBAR [facility] W/O CONTRAST MATERIAL BLOOD 51772 [facility] COUNT 5 N N COMPLETE COMMUNTIY COMMUNTIY AUTOMATED HOSPITA HOSPITA BASIC 02059 [facility] METABOLIC 5 N N PANEL COMMUNTIY COMMUNTIY CALCIUM HOSPITA HOSPITA TOTAL ECG 90016 [facility] ROUTINE 5 N N ECG COMMUNTIY COMMUNTIY W/LEAST HOSPITA HOSPITA 12 LDS TRCG ONLY W/O I&R THERAPEUT 52113 HARDEEP MEIER IC 5 [facility] PROPHYLAC INC INC TIC/DX INJECTION SUBQ/IM IAADI 71194 HARDEEP MEIER INFLUENZA 5 [facility] B VIRUS INC INC IAADI 21355 HARDEEP MEIER INFFLUENZ 5 [facility] A A VIRUS INC INC COMPREHEN 73415 HARDEEP MEIER SIVE 5 [facility] METABOLIC INC INC PANEL PRESSURIZ 11130 HARDEEP MEIER ED/NONPRE 5 [facility] SSURIZED INC INC INHALATIO N TREATMENT BLOOD 69358 HARDEEP MEIER COUNT 5 [facility] COMPLETE INC INC AUTO&AUTO DIFRNTL WBC RADIOLOGI 05405 HARDEEP MEIER C EXAM 5 [facility] CHEST 2 INC INC VIEWS FRONTAL&L ATERAL DXA BONE 17643 GIORGIO PATEL 5 [place] PET STUDY 1/> SITES AXIAL SKEL RADEX 66091 [facility] TRA SPINE 5 [place] LUMBOSACR ORTHOPAED AL 2/3 [facility] VIEWS THERAPEUT 48282 HARDEEP MEIER IC 5 [facility] PROPHYLAC INC INC TIC/DX INJECTION SUBQ/IM PRESSURIZ 16657 HARDEEP MEIER ED/NONPRE 5 [facility] SSURIZED INC INC INHALATIO N TREATMENT FLUOR 62300 GIORGIO [place] NEEDLE/CA 5 GANESH HERNANDEZ MD,[facility] SPINE/PAR ASPINAL DX/[place] NJX 23195 STONE STONE DX/THER [address] [facility] SURGERY SURGERY EPIDURAL/ CENTER CENTER SUBARACH LUMBAR/SA CRAL INJECTION J1100 [facility] NELDA 5 PHYSICIAN KETAN DEXAMETHO S GROUP SONE SODIUM PHOSPHATE 1 MG THERAPEUT 02344 [facility] NELDA IC 5 PHYSICIAN KETAN PROPHYLAC S GROUP TIC/DX INJECTION SUBQ/IM FLUOR 99159 GIORGIO [place] NEEDLE/CA 4 GANESH HERNANDEZ MD,[facility] SPINE/PAR ASPINAL DX/[place] NJX 20727 GIORGIO [place] DX/THER 4 GANESH HERNANDEZ MD,[facility] EPIDURAL/ SUBARACH LUMBAR/SA CRAL RADEX 03007 DI THOMAS [facility]1983 4 [facility] [place] MINIMUM 2 IMAGING VIEWS ASS APPLICATI 41813 HARDEEP MEIER ON FINGER 4 [facility] SPLINT INC INC STATIC SIMPLE 76853 [facility] REPAIR 4 JAVIER SCALP/NEC EMERGENCY K/AX/IVETH PHYS T/TRUNK 2.5CM/< URNLS DIP 26192 HARDEEP MEIER 4 [facility] LET RGNT P P NON-AUTO W/O MICRSCP PETE 14887 HARDEEP PINA JR POST-VOID 4 [facility] RESIDUAL P URINE&/BL ADDER CAP THERAPEUT 46995 [facility] NELDA IC 4 PHYSICIAN KETAN PROPHYLAC S GROUP TIC/DX INJECTION SUBQ/IM INJECTION J1040 [facility] NELDA 4 PHYSICIAN KETAN METHYLPRE S GROUP DNISOLONE ACETATE 80 MG SUSCEPTIB 15082 HARDEEP MEIER LTY STDY 4 [facility] ANTIMICRB INC INC IAL MICRO/AGA R DILUTJ CULTURE 67639 HARDEEP MEIER BACTERIAL 4 [facility] INC INC QUANTTATI VE COLONY COUNT URINE CULTURE 41905 HARDEEP MEIER BCT 4 [facility] ISOL&PRSM INC INC PTV ID ISOLATE EA URINE THERAPEUT 28300 [facility] IC 4 PHYSICIAN PHYSICIAN PROPHYLAC S GROUP S GROUP TIC/DX INJECTION SUBQ/IM INJECTION J1040 [facility] NELDA 4 PHYSICIAN KETAN METHYLPRE S GROUP DNISOLONE ACETATE 80 MG INJECTION J1040 [facility] NELDA 4 PHYSICIAN KETAN METHYLPRE S GROUP DNISOLONE ACETATE 80 MG THERAPEUT 34353 [facility] NELDA IC 4 PHYSICIAN KETAN PROPHYLAC S GROUP TIC/DX INJECTION SUBQ/IM BASIC 78517 HARDEEP MEIER METABOLIC 4 [facility] PANEL INC INC CALCIUM TOTAL DRUG SCR G0434 [facility] J[facility] NOT 4 CHROMATOG RAPHIC; ANY NUMBER PT ENC RADEX 70877 MARTHA MARTHA HAND 2 4 [place] VIEWS RADEX 41130 HARDEEP MEIER HAND 4 [facility] MINIMUM 3 INC INC VIEWS RADEX HIP 54373 CINTRON TRA CINTRON TRA 4 UNILATERA L COMPLETE MINIMUM [place] [address] ALPHONSE CUNHA 1/> AREAS 4 MAXIMO MAXIMO EACH 15 MIN NEUROMUSC REEDUCA APPL 71558 [facility] MODALITY 4 MAXIMO MAXIMO 1/> [place] [address] [facility] 1/> AREAS 4 MAXIMO MAXIMO EACH 15 MINUTES MASSAGE CHIROPRAC 02238 [facility] TIC 4 MAXIMO MAXIMO MANIPULAT [place] SPINAL 3-4 REGIONS CHIROPRAC 39709 [facility] TIC 4 MAXIMO MAXIMO MANIPULAT [place] SPINAL 3-[place] [address] ALPHONSE CUNHA 1/> AREAS 4 MAXIMO MAXIMO EACH 15 MINUTES MASSAGE APPL 07515 [facility] MODALITY 4 MAXIMO MAXIMO 1/> ARE[place] [address] ALPHONSE CUNHA 1/> AREAS 4 MAXIMO MAXIMO EACH 15 MIN NEUROMUSC REEDUCA MRI 95927 CINTRNO TRA CINTRON TRA SPINAL 4 CANAL LUMBAR W/O CONTRAST MATERIAL RADEX 67677 CINTRON TRA CINTRON TRA SPINE 4 LUMBOSACR AL 2/3 VIEWS PETE 40685 YOVANI JR YOVANI JR POST-VOID 4 DEB DEB ING RESIDUAL URINE&/BL ADDER CAP COMPREHEN 02699 HARDEEP MEIER SIVE 4 [facility] METABOLIC INC INC PANEL CULTURE 04422 HARDEEP MEIER BACTERIAL 4 [facility] INC INC QUANTTAT[place] [address] HARDEEP MEIER THYROXINE 4 [facility] [place] [address] HARDEEP MEIER THYROID 4 [facility] STIMULATI INC INC NG HORMONE TSH LIPID 47176 HARDEEP MEIER PANEL 4 [facility] INC INC HEMOGLOBI 24947 HARDEEP MEIER N 4 [facility] GLYCOSYLA INC INC OZIEL A1C BLOOD 94321 HARDEEP WARD LIS COUNT 4 [facility] COMPLETE INC AUTO&[place] [address] HARDEEP MEIER INFUSION 4 [facility] THERAPY/P INC INC ROPHYLAXI S /DX 1ST TO 1 HR THERAPEUT 50142 HARDEEP MEIER IC 4 [facility] INJECTION INC INC IV PUSH EACH NEW DRUG INJECTION J2405 HARDEEP MEIER 4 [facility] ONDANSETR INC INC ON HCL PER 1 MG CUL BACT 22757 HARDEEP MEIER XCPT 4 [facility] URINE INC INC BLOOD/[place] [address] HARDEEP MEIER STREPTOCO 4 [facility] CCUS INC INC GROUP A IAADI 13065 HAR[facility]EP MEIER INFFLUENZ 4 [facility] A A VIRUS INC INC IAADI 90161 HARDEEP MEIER INFLUENZA 4 [facility] B VIRUS INC INC THERAPEUT 80047 HARDEEP MEIER IC 4 [facility] PROPHYLAC INC INC TIC/DX INJECTION SUBQ/IM RADEX 50559 HARDEEP MEIER SPINE 4 [facility] THORACIC INC INC 2 VIEWS ANESTHESI 80056 PATSY & Farrukh ROGERS 1 KEN, VANDANA RADHA INTRAORAL PLLC WITH BIOPSY NOS BASIC 25081 [facility] METABOLIC 1 DIAGNOSTI DIAGNOSTI [place] [address] [facility] THYROID 1 DIAGNOSTI DIAGNOSTI STIMULATI CS CS NG HORMONE TSH LIPID 18011 [facility] PANEL 1 DIAGNOSTI DIAGNOSTI CS CS LIPOPROTE 50459 [facility] IN DIRECT 1 DIAGNOSTI DIAGNOSTI CS CS MEASUREME NT LDL CHOLESTER OL Encounters Encounter Start End Date Code Location Performer Type Date OFFICE 66945 GIORGIO MYERS OUTMICHELLE 7 7 Christy HERNANDEZ VISIT ,PSC 15 MINUTES OFFICE 02271 GIORGIO ELIZABETH 7 7 Christy HERNANDEZ VISIT ,PSC 25 MINUTES HOSPITAL HARDEEP - 7 7 [facility] OUTPATIEN [facility] T HOSPITAL HARDEEP - 7 7 [facility] OUTPATIEN [facility] T EMERGENCY 45909 DANNY BEE DEPT 7 7 PHYSICIAN VISIT S, PLLC HIGH SEVERITY& THREAT FUN EMERGENCY 64051 HARDEEP 7 7 [facility] T VISIT HIGH/URGE NT SEVERITY HOSPITAL HARDEEP - 7 7 [facility] OUTPATIEN [facility] T EMERGENCY 34580 DANNY BEE DEPT 7 7 PHYSICIAN VISIT S, PLLC HIGH SEVERITY& THREAT FUNCJ EMERGENCY 23868 HARDEEP 7 7 [facility] T VISIT HIGH/URGE NT SEVERITY OFFICE 76800 [facility] SRIVASTAV OUTMICHELLE 7 7 PHYSICIAN A T VISIT S GROUP 25 MINUTES HOSPITAL HARDEEP - 7 7 [facility] OUTPATIEN [facility] T OFFICE 33237 GIORGIO ELIZABETH 6 6 DAVID TURNER T VISIT PSC 25 MINUTES HOSPITAL HARDEEP - 6 6 [facility] OUTPATIEN INC T OFFICE 64432 [facility] JOSE OUTMICHELLE 6 6 PHYSICIAN DEIDRE T VISIT S GROUP 25 MINUTES EMERGENCY 42361 DANNY RENAE DEPT 6 6 PHYSICIAN U VAMSHI VISIT [facility] HIGH SEVERITY& THREAT [facility] OFFICE 76844 [facility] OUTPATIEN 6 6 PHYSICIAN T VISIT S GROUP 25 MINUTES OFFICE 19543 ALVARES ALVARES OUTPATIEN 6 6 NATIVIDAD HERNANDEZ T VISIT ,PSC 25 MINUTES OFFICE 64450 YARI CINTRON OUTPATIEN 6 6 T VISIT ORTHOPAED 15 ICS PSC MINUTES OFFICE 59811 GIORGIO MYERS OUTPATIEN 6 6 MIRIAM HERNANDEZ T VISIT ,PSC 25 MINUTES EMERGENCY 57239 DANNY ANDRADE, [address] [facility] T VISIT HIGH/URGE NT SEVERITY EMERGENCY 40647 HARDEEP ALLEN 6 6 [facility] DEPARTMEN INC T VISIT MODERATE SEVERITY HOSPITAL HARDEEP - 6 6 [facility] OUTPATIEN INC T OFFICE 66773 [facility] CINTRON OUTPATIEN 6 6 T VISIT ORTHOPAED 15 ICS PSC MINUTES OFFICE 37717 PENTECOSTALISMChristy WOOTEN OUTPATIEN 6 6 HEALTH JAM T NEW 45 MEDICAL MINUTES GROUP OFFICE 17756 [facility] SALLIE OUTPATIEN 6 6 PHYSICIAN ANDERSEN T VISIT S GROUP 15 MINUTES EMERGENCY 43145 DANNY LUTZ DEPT 6 6 PHYSICIAN KETAN VISIT [facility] HIGH SEVERITY& THREAT [facility] HOSPITAL HARDEEP - 6 6 [facility] OUTPATIEN INC T OFFICE 08783 GIORGIO THOMASARD OUTPATIEN 6 6 NATIVIDAD HERNANDEZ T VISIT ,PSC 25 MINUTES OFFICE 51907 SHAMAR HERZOG OUTPATIEN 6 6 MEDICAL T VISIT SERV 15 FOUNDATIO MINUTES N OFFICE 59347 [facility] SALLIE OUTPATIEN 6 6 PHYSICIAN ANDERSEN T VISIT S GROUP 15 MINUTES HOSPITAL [facility] - 6 6 [facility] OUTPATIEN INC T OFFICE 41921 [facility] JOSE OUTPATIEN 6 6 PHYSICIAN MAT T VISIT S GROUP 25 MINUTES HOSPITAL HARDEEP - 6 6 [facility] OUTPATIEN INC T HOSPITAL [facility] - 6 6 [facility] OUTPATIEN INC T OFFICE 91937 [facility] JOSE OUTPATIEN 6 6 PHYSICIAN MAT T VISIT S GROUP 25 MINUTES OFFICE 68062 MELANI CORDOVAGUSON OUTPATIEN 6 6 HUM[facility]ERTO HUM[facility]ERT[facility] T NEW 20 MINUTES OFFICE 16954 GIORGIO MYERS OUTPATIEN 6 6 DAVID, T VISIT ,PSC 25 MINUTES HOSPITAL HAR[facility] - 6 6 [facility] OUTPATIEN INC T OFFICE 77571 [place] SANCHEZ MINO OUTPATIEN 6 6 MEDICAL T NEW 45 SERV MINUTES FOUNDATIO N EMERGENCY 91890 DANNY LUTZ 6 6 PHYSICIAN KETAN DEPARTMEN S, PLLC T VISIT HIGH/URGE NT SEVERITY HOSPITAL [facility] - 6 6 [facility] OUTPATIEN INC T OFFICE 65520 ADELAIDE LAM MAR CONSULTAT 6 6 ION NEUROSCIE NEW/ESTAB NCES CENT PATIENT 40 MIN OFFICE 40357 [facility] GUNNER OUTPATIEN 6 6 PHYSICIAN KETAN T VISIT S GROUP 15 MINUTES OFFICE 05555 GIORGIO MYERS OUTPATIEN 5 5 DAVID TURNER MIRIAM T VISIT PSC 25 MINUTES HOSPITAL HAR[facility] - 5 5 [facility] OUTPATIEN INC T OFFICE 92857 CARDIOVAS JOSE OUTPATIEN 5 5 CULAR MAT T VISIT CONSULTAN 25 TS O MINUTES EMERGENCY 81226 HARDEEP 5 5 [facility] DEPARTMEN INC T VISIT MODERATE SEVERITY HOSPITAL [facility] - 5 5 [facility] OUTPATIEN INC T EMERGENCY 15799 DANNY SANDHU DEPT 5 5 PHYSICIAN FOR VISIT S, PLLC HIGH SEVERITY& THREAT [facility] HARDEEP - 5 5 [facility] OUTPATIEN INC T OFFICE 45234 HARDEEP MARTINO OUTPATIEN 5 5 [facility] T VISIT HOSPITAL 15 MINUTES HOSPITAL HARDEEP - 5 5 [facility] OUTPATIEN INC T OFFICE 89296 CARDIOVAS JOSE OUTPATIEN 5 5 CULAR MAT T VISIT CONSULTAN 25 TS O MINUTES OFFICE 94312 HARDEEP FERNANDES OUTPATIEN 5 5 [facility] T VISIT [facility] 15 MINUTES [facility] HARDEEP - 5 5 [facility] OUTPATIEN INC T OFFICE 16097 [place] OUTPATIEN 5 5 GAR T VISIT CHIROPRAC 15 TIC CENTE MINUTES OFFICE 82345 CARDIOVAS JOSE OUTPATIEN 5 5 CULAR MAT T VISIT CONSULTAN 25 TS O MINUTES HOSPITAL HAR[facility] - 5 5 [facility] OUTPATIEN INC T EMERGENCY 77248 DANNY CHENG 5 5 PHYSICIAN EMMY DEPARTMEN S, [facility] T VISIT HIGH/URGE NT SEVERITY OFFICE 18133 HARDEEP MARTINO OUTPATIEN 5 5 [facility] T VISIT HOSPITAL 15 MINUTES [facility] [place] [address] 5 HOSPITAL INPATIENT [facility] - 5 5 N OUTPATIEN COMMUNTIY T HOSPCRITICAL ACCESS HOSPITAL [facility] - 5 5 N OUTPATIEN COMMUNTIY T HOSPCRITICAL ACCESS [facility]OSPITAL EMERGENCY 56506 HARDEEP 5 5 [facility] DEPARTMEN INC T VISIT MODERATE SEVERITY HOSPITAL [facility] - 5 5 [facility] OUTPATIEN INC T OFFICE 00266 [facility]TRAL CINTRON TRA OUTPATIEN 5 5 [place] T VISIT ORTHOPAED 15 ICS PLC MINUTES EMERGENCY 95301 HARDEEP 5 5 [facility] LOW/MODER SEVERITY EMERGENCY 13990 HARDEEP DILLON 5 5 [facility] T VISIT P MODERATE SEVERITY HOSPITAL [facility] - 5 5 [facility] OUTPATIEN INC T OFFICE 77131 [facility] NELDA OUTPATIEN 5 5 PHYSICIAN KETAN T VISIT S GROUP 10 MINUTES OFFICE 03841 [facility] FR[facility] OUTPATIEN 5 5 PHYSICIAN EUG T VISIT S GROUP 15 MINUTES EMERGENCY 91987 [facility] 4 [address] [facility] HIGH/URGE NT SEVERITY [facility] - 4 4 [facility] T EMERGENCY 67532 [facility] 4 4 [facility] EMERGENCY T VISIT PHYS MODERATE SEVERITY OFFICE 54412 [facility] NELDA OUTPATIEN 4 4 PHYSICIAN KETAN T VISIT S GROUP 15 MINUTES [facility] - 4 4 [facility] - 4 4 [facility] T OFFICE 34515 [facility] 4 4 PHYSICIAN T VISIT S GROUP 15 MINUTES OFFICE 65275 [facility] OUT[facility] 4 4 T NEW 45 MINUTES [facility] - 4 4 [facility] OUT[facility] INC T EMERGENCY 91806 [facility] NELDA 4 4 KETAN KETAN [facility] T VISIT MODERATE SEVERITY EMERGENCY 64181 [facility] [address] [facility] LOW/MODER SEVERITY OFFICE 27028 [facility] OUTPATIEN 4 4 PHYSICIAN T NEW 20 S GROUP MINUTES OFFICE 33887 [facility] OUT[facility] 4 4 T VISIT 25 MINUTES OFFICE 16875 [facility] OUT[facility] 4 4 MAXIMO MAXIMO T NEW 30 MINUTES OFFICE 68495 [facility] CONSULTAT 4 4 ION NEW/ESTAB PATIENT 40 MIN OFFICE 35391 YOVANI PINA JR OUTPATIEN 4 4 DEB DEB T NEW 20 MINUTES OFFICE 11915 NELDA LUTZ OUTPATIEN 4 4 KETAN KETAN T VISIT 15 MINUTES OFFICE 50204 NELDA LUTZ OUTPATIEN 4 4 KETAN KETAN T VISIT 10 MINUTES [facility]OSP[facility] - 4 4 [facility] OUTPATI[facility] INC T EMERGENCY 14004 [facility] 4 4 [facility] DEPART[facility] INC T VISIT MODERATE SEVERITY [facility]OSP[facility] - 4 4 [facility] OUTPATI[facility] INC T EMERGENCY 26351 CHERY PNIEDA 4 4 EMERGENCY DEPARTMEN SERVICES T VISIT HIGH/URGE NT SEVERITY [facility]OSP[facility] - 4 4 [facility] OUTPATI[facility] INC T EMERGENCY 38165 [facility] 4 4 [facility] DE[facility] T VISIT LOW/MODER SEVERITY OFFICE 38314 JOSE JOSE OUTPATIEN 1 1 CANDICE CANDICE T VISIT 15 MINUTES
--- OUTSIDE RECORDS SUMMARY | 2017-03-17 07:41 | External Medical Summary Rpt ---
Author Author [employer], [facility] [employer] Organization [employer] Address Unknown Phone Unavailable Results Drugs identified in Urine by Screen method Observa Value Referen Units Interpr Notes Date tion ce etation Range Positive urine drug screen samples are stored for 7 days. Contact the Lab if confirmation of positives is needed. Ampheta NEGATIV <1000 ng/mL No No Mar 03 mine E informa informa 2017 [Presen tion in tion in 4:00 PM ce] in source source Urine data data by Screen method Barbitura <200 ng/mL No No Mar 03 alvino informati informati 2017 4:00 [Mass/vol on in on in PM ume] in source source Urine by data data Screen method Benzodiaz 200 ng/mL ng/mL No No Mar 03 epines informati informati 2017 4:00 [Mass/vol on in on in PM ume] in source source Serum or data data Plasma by Screen method Cocaine <300 ng/g No No Sep 27 [Mass/vol informati informati 2017 4:00 ume] in on in on in PM Unspecifi source source ed data data specimen Methadone <300 ng/mL No No Mar 03 informati informati 2017 4:00 [Mass/vol on in on in PM ume] in source source Unspecifi data data ed specimen Opiates <300 ng/mL No No Sep 27 [Mass/vol informati informati 2017 4:00 ume] in on in on in PM Unspecifi source source ed data data specimen Phencycli <25 ng/mL No No Sep 27 dine informati informati 2017 4:00 [Mass/vol on in on in PM ume] in source source Unspecifi data data ed specimen 11-Hydr NEGATIV <50 ng/mL No No Sep 27 oxy E informa informa 2017 delta-9 tion in tion in 4:00 PM source source tetrahy data data drocann abinol [Presen ce] in Unspeci fied specime n
--- OUTSIDE RECORDS SUMMARY | 2017-03-17 07:41 | External Medical Summary Rpt ---
Demographics Preferred Language Serbian Marital Status Unknown Synagogue Affiliation Unknown Race Unknown Ethnic Group Unknown Author Author , JULIETA HUSSEIN Address Unknown Phone Immunization Unable to retrieve immunization data due to connection failure with Immunization Registry. Please try again later.
--- OUTSIDE RECORDS SUMMARY | 2017-03-17 07:41 | External Medical Summary Rpt ---
Demographics Preferred Language Thai Marital Status Unknown Nondenominational Affiliation Unknown Race Unknown Ethnic Group Unknown Author Author , JULIETA HUSSEIN Address Unknown Phone Immunization Unable to retrieve immunization data due to connection failure with Immunization Registry. Please try again later.
== END 2017-02-22 20:51 | disposition home or self-care (01) ==
LOC: ER 18:10 → UTC 18:24
DX: S39.012A Strain of muscle, fascia and tendon of lower back, initial encounter (principal); X50.9XXA Other and unspecified overexertion or strenuous movements or postures, initial encounter; Y93.89 Activity, other specified; Y92.810 Car as the place of occurrence of the external cause; I42.9 Cardiomyopathy, unspecified; F41.9 Anxiety disorder, unspecified; I10 Essential (primary) hypertension; Z79.899 Other long term (current) drug therapy

== ENCOUNTER → 2017-03-03 | Outpatient (CLI) | payer MEDICAID ==
[~2017-03-03] MED LIST changes: +TRAZODONE 50MG50 MG PO; +WELLBUTRIN 150150 MG PO
[2017-03-03 22:10] LABS: AMPHETAMINES/METAMPHETAMINES NEGATIVE ng/mL (<1000)
== END ==
LOC: LAB 17:30
PROVIDERS: Nurse Practitioner Family
DX: Z79.899 Other long term (current) drug therapy (principal)

== ENCOUNTER → 2017-03-08 | Outpatient (CLI) | payer MEDICAID ==
--- NOTE | 2017-03-09 09:45 | RADIOLOGY REPORT PS360 ---
US SOFT TISSUE HEAD/NECK COMPARISON: CT scan of brain noncontrast 11/17/2012 HISTORY: Palpable fullness base of skull just to left of midline TECHNIQUE: Targeted ultrasound over the palpable area FINDINGS: Normal appearing subcutaneous tissue is identified in the area scanned with no abnormal cystic or solid mass identified and no distortion of the soft tissues. IMPRESSION: Unremarkable targeted ultrasound near the base of the skull
== END ==
LOC: RAD 13:00
DX: L72.3 Sebaceous cyst (principal)

== ENCOUNTER → 2017-04-26 | Outpatient (CLI) | payer MEDICAID ==
--- NOTE | 2017-04-26 15:52 | RADIOLOGY REPORT PS360 ---
CT SOFT TISSUE NECK W/CONTRAST INDICATION: Neck pain, headache, bulge along the posterior neck/soft tissue mass NECK PAIN ORDERING PHYSICIAN: Travis Chatterjee MD PATIENT AGE: 46 years COMPARISON: None TECHNIQUE: Axial images are obtained following the intravenous administration of 75 mL's of Isovue-370 contrast. Sagittal and coronal reformatted images are reviewed as well. FINDINGS: The nasopharynx has an unremarkable appearance. There is mild prominence of the tonsils left more so than right which is of questionable clinical significance. Direct visualization is recommended. No abscess or abnormal fluid collection is evident. . Scattered small lymph nodes are present in both sides of the neck with a noted in the left internal jugular chain measuring up to 2.4 x 1.2 cm The epiglottis has an unremarkable appearance as does the glottic region. A BB is placed along the posterior aspect of the neck on the left to pippa an area of soft tissue bulge. No soft tissue mass evident in this region. No lipomas or solid-appearing masses are apparent. Images of the upper chest are unremarkable. There is a small calcification within the posterior neck centrally at the C5 level consistent with nuchal ligament calcification. This does not correspond to the area of palpable interest. IMPRESSION: 1. Mild tonsillar hypertrophy 2. Scattered small cervical lymph nodes nonspecific measuring up to 2.4 x 1.2 cm and the left internal jugular chain
== END ==
LOC: RAD 04-19 13:00
DX: M54.2 Cervicalgia (principal)
CPT/HCPCS: Q9967